=== PATIENT | male | born 1960 | race American Indian/Alaskan Native ===

== ENCOUNTER 2021-05-23 20:03 | Inpatient (IN) | payer OTHER ==
[2021-05-23] MEDS ORDERED: PIPERACIL/TAZOBACTA 4.5/NS 100 4.5 GM/100 ML VIAL IV ONE (22:44)
--- NOTE | 2021-05-23 23:32 | Event Note ---
Date of service: 05/23/21 Face to Face: For this encounter I have reviewed the PA/SEWAGE PLANT SUPERVISOR documentation, treatment plan, medical decision making, and I had face to face time with this patient. patient presented secondary to right foot and toe pain. He had a blister to the lateral aspect of the right foot several weeks ago. It had popped. He started to have problems. He went to a yellow pages space salesperson several weeks ago and was told that it was not infected. He is supposed to go the by just tomorrow for recheck. His little toe started to become more dark and dusky. His was concerned. She referred to me for evaluation. There is no known trauma. On exam, patient has a dusky right little toe. This is consistent with a gangrene presentation. There is a large ulcer to the lateral aspect of the right foot distally. There is edema and erythema and warmth to the dorsum of the right foot. This is consistent with a cellulitis. Patient will require admission for IV antibiotics and orthopedic consultation. He is aware that he may lose the toe. He is in fact diabetic.
[2021-05-23 23:37] LABS: Basophils # (Auto) 0.2 K/mm3 (0.0-0.1); Basophils % (Auto) 1.1 % (0.0-1.8); Eosinophils % (Auto) 0.2 % (0.0-4.3); Hematocrit 34.3 % (35.5-45.6); Hemoglobin 10.9 gm/dl (11.8-15.2); Lymphocytes % (Auto) 12.9 % (13.4-35.0); Mean Corpuscular HGB Conc 32 % (32-34); Mean Corpuscular Volume 78 fl (84-94); Monocytes # (Auto) 1.2 K/mm3 (0.0-0.8); Monocytes % (Auto) 7.8 % (0.0-7.3); Platelet Count 492 K/mm3 (140-440); Red Cell Distribution Width 14.3 % (13.2-15.2)
--- NOTE | 2021-05-23 23:40 | Emergency Department Report ---
ED Lower Extremity HPI - General Chief Complaint: Extremity Injury, Lower Stated Complaint: DIABETIC FOOT SORE Time Seen by Provider: 05/23/21 22:39 Source: patient Mode of arrival: Ambulatory Limitations: No Limitations - History of Present Illness Initial Comments: This is a 60-year-old male nontoxic, well nourished in appearance, no acute signs of distress presents to the ED with c/o of right lateral foot open wound and cyanotic right fifth toe times several days. Patient stated had a small blister which turned into an open wound and was treated with a pharmacy picking tech but symptoms worsen. Patient was on outpatient antibiotics and was brought by PCP for further evaluation and treatment. Denies any trauma or injuries. Patient denies any numbness, tingling, fever, chills, nausea, vomiting, chest pain, shortness of breath, headache, stiff neck. Patient stated has decreased gait due to pain. Patient denies any allergies. PMH include DM. MD Complaint: foot injury -: days(s) Injury: Foot: Right, Toes: Right Severity: mild Severity scale (0 -10): 8 Improves With: immobilization Worsens With: weight bearing, movement, palpation Associated Symptoms: swelling, able to partially bear weight. denies: snap/pop sensation, numbness, tingling, unable to bear weight - Related Data Home Medications Medication Instructions Recorded Confirmed Last Taken Amlodipine Besylate [Norvasc] 10 mg PO DAILY 10/30/14 11/04/14 10/29/14 Gabapentin 100 mg PO DAILY 10/30/14 11/04/14 10/29/14 Losartan/Hydrochlorothiazide 100 - 125 each PO DAILY 10/30/14 11/04/14 10/29/14 [Hyzaar 100-25 TAB] Metformin HCl [Fortamet ER] 1,000 mg PO QDAY 10/30/14 11/04/14 10/29/14 Simvastatin 20 mg PO QHS 10/30/14 11/04/14 10/29/14 glipiZIDE [Glucotrol] 10 mg PO QDAY 10/30/14 11/04/14 10/29/14 Previous Rx's Medication Instructions Recorded Last Taken Type Amoxicillin/K Clav Tab [Augmentin 1 each PO Q12H #10 day 11/02/14 Unknown Rx 875MG TAB] Allergies Allergy/AdvReac Type Severity Reaction Status Date / Time No Known Allergies Allergy Verified 05/23/21 22:32 ED Review of Systems ROS: Stated complaint: DIABETIC FOOT SORE Other details as noted in HPI Comment: All other systems reviewed and negative Constitutional: denies: chills, fever Eyes: denies: eye pain, eye discharge, vision change ENT: denies: ear pain, throat pain Respiratory: denies: cough, shortness of breath, wheezing Cardiovascular: denies: chest pain, palpitations Endocrine: no symptoms reported Gastrointestinal: denies: abdominal pain, nausea, diarrhea Genitourinary: denies: urgency, dysuria Musculoskeletal: denies: back pain, joint swelling, arthralgia Skin: denies: rash, lesions Neurological: denies: headache, weakness, paresthesias Psychiatric: denies: anxiety, depression Hematological/Lymphatic: denies: easy bleeding, easy bruising ED Past Medical Hx - Past Medical History Hx Hypertension: Yes Hx Diabetes: Yes (21 years ago) Hx COPD: No - Social History Smoking Status: Never Smoker - Medications Home Medications: Home Medications Medication Instructions Recorded Confirmed Last Taken Type Amlodipine Besylate [Norvasc] 10 mg PO DAILY 10/30/14 11/04/14 10/29/14 History Gabapentin 100 mg PO DAILY 10/30/14 11/04/14 10/29/14 History Losartan/Hydrochlorothiazide 100 - 125 each PO DAILY 10/30/14 11/04/14 10/29/14 History [Hyzaar 100-25 TAB] Metformin HCl [Fortamet ER] 1,000 mg PO QDAY 10/30/14 11/04/14 10/29/14 History Simvastatin 20 mg PO QHS 10/30/14 11/04/14 10/29/14 History glipiZIDE [Glucotrol] 10 mg PO QDAY 10/30/14 11/04/14 10/29/14 History Amoxicillin/K Clav Tab [Augmentin 1 each PO Q12H #10 day 11/02/14 11/04/14 Unknown Rx 875MG TAB] ED Physical Exam - General Limitations: No Limitations General appearance: alert, in no apparent distress - Head Head exam: Present: atraumatic, normocephalic - Eye Eye exam: Present: normal appearance - Neck Neck exam: Present: normal inspection. Absent: lymphadenopathy - Respiratory Respiratory exam: Absent: respiratory distress - Cardiovascular Cardiovascular Exam: Present: tachycardia - Extremities Exam Extremities exam: Present: full ROM, tenderness, normal capillary refill, pedal edema. Absent: joint swelling, calf tenderness - Expanded Lower Extremity Exam Right Hip exam: Present: normal inspection, full ROM. Absent: tenderness, swelling Upper Leg exam: Present: normal inspection, full ROM. Absent: tenderness, swelling Knee exam: Present: normal inspection, full ROM. Absent: tenderness, swelling Lower Leg exam: Present: normal inspection, full ROM. Absent: tenderness, swelling Ankle exam: Present: normal inspection, full ROM. Absent: tenderness, swelling, abrasion, laceration, ecchymosis, deformity, crepidus, dislocation, erythema, anterior draw sign Foot/Toe exam: Present: normal inspection, full ROM, tenderness, swelling, ecchymosis, erythema. Absent: abrasion, laceration, deformity, crepidus, dislocation, amputation, foreign body, calcaneal tenderness, tenderness at base of 5th metatarsal, nail avulsion, subungual hematoma Gait: Positive: observed and limited by pain 1 - Exam consistent with necrosis 1 - Cellulitis with some swelling - Back Exam Back exam: Present: normal inspection, full ROM - Neurological Exam Neurological exam: Present: alert, oriented X3 - Psychiatric Psychiatric exam: Present: normal affect, normal mood - Skin Skin exam: Present: warm, dry, intact, normal color. Absent: rash ED Course Vital Signs 05/23/21 22:37 Temperature 99.1 F Pulse Rate 108 H Respiratory 18 Rate Blood Pressure 151/88 [Left] O2 Sat by Pulse 97 Oximetry - Reevaluation(s) Reevaluation #1: 05/23/21 23:39 Patient is speaking in full sentences with no signs of distress noted. - Consultations Consultation #1: 05/23/21 23:39 Patient has been consulted with Dr. Pergrem about patient history, physical exam, and examined patient and agrees to ED plan of care and admission. Consultation #2: 05/24/21 00:17 Patient has been consulted with ZACHERY Hodgson (hospitalist) about patient history, physical exam, and labs/imaging results and accepts patient to services. ED Lower Extremity MDM - Lab Data Result diagrams: 05/23/21 23:17 05/23/21 23:17 - Radiology Data [facility] [address] [place] [address] XRay Report Signed Patient: JE BALDERAS MR#: [id number] : 1960 Acct:[id number] Age/Sex: 60 / M ADM Date: 05/23/21 Loc: ED Attending Dr: Ordering Physician: YOVANNY ALVAREZ NP Date of Service: 05/23/21 Procedure(s): XR foot 3+V RT Accession Number(s): [id number] cc: YOVANNY ALVAREZ NP Fluoro Time In Minutes: RIGHT FOOT 3 VIEWS 2255 INDICATION: foot cellulitis with open wound COMPARISON: 10/30/2014 FINDINGS: Old second metatarsal fracture is again noted. No acute fractures or dislocations are seen. Tarsal and ankle degenerative changes are noted. Wound along the ventral lateral aspect of the distal foot is seen in the area of the fifth metatarsophalangeal joint. No foreign bodies are noted. Gas is seen in the soft tissues in this area. The base of the proximal phalanx of the fifth digit as well as the head of the metatarsal show areas of decreased density and decreased cortical definition of concern for developing osteomyelitis. MR is suggested. Signer Name: Mukul Hernandez MD Signed: 05/23/2021 11:44 PM Workstation Name: [id number] Transcribed By: GJ Dictated By: Mukul Hernandez MD Electronically Authenticated By: Mukul Hernandez MD Signed Date/Time: 05/23/212343 DD/ 41 TD/TT: - Medical Decision Making 60-year-old male that presents with necrosis and most likely osteomyelitis. Patient is stable and was examined by me. Patient admitted with hospitalist. Patient is notified of the lab results and x-ray imaging with no questions noted by the patient. Patient received Zosyn IV in ER. Vital signs are stable on admission. At time of admission, the patient does not seem toxic or ill in ap pearance. No acute signs of distress noted. Patient agrees to admission treatment plan of care. No further questions noted by the patient. Critical care attestation.: If time is entered above; I have spent that time in minutes in the direct care of this critically ill patient, excluding procedure time. ED Disposition Clinical Impression: Wound infection, Toe necrosis, Cellulitis of foot, right Foot osteomyelitis, right Qualifiers: Osteomyelitis type: unspecified type Qualified Code(s): M86.9 - Osteomyelitis, unspecified Wound, open, foot Qualifiers: Encounter type: initial encounter Laterality: right Qualified Code(s): S91.301A - Unspecified open wound, right foot, initial encounter Disposition: ADMITTED INPATIENT Is pt being admited?: Yes Condition: Stable Time of Disposition: 00:17
--- NOTE | 2021-05-23 23:49 | XRay Report ---
RIGHT FOOT 3 VIEWS 2255 INDICATION: foot cellulitis with open wound COMPARISON: 10/30/2014 FINDINGS: Old second metatarsal fracture is again noted. No acute fractures or dislocations are seen. Tarsal and ankle degenerative changes are noted. Wound along the ventral lateral aspect of the distal foot is seen in the area of the fifth metatarsop halangeal joint. No foreign bodies are noted. Gas is seen in the soft tissues in this area. The base of the proximal phalanx of the fifth digit as well as the head of the metatarsal show areas of decrea sed density and decreased cortical definition of concern for developing osteomyelitis. MR is suggested. Signer Name: Mukul Hernandez MD Signed: 05/23/2021 11:44 PM Workstation Name: [id number]
[2021-05-23 23:51] LABS: Alanine Aminotransferase 11 units/L (7-56)
[2021-05-23 23:56] LABS: Bilirubin,Direct < 0.2 mg/dL (0-0.2)
[2021-05-24] MEDS ORDERED: ONDANSETRON 4 MG/2 ML INJ IV PRN (00:25)
[2021-05-24] MEDS ORDERED: ACETAMINOPHEN 325 MG TAB PO PRN (00:25)
[2021-05-24] MEDS ORDERED: DEXTROSE 50% IN WATER (25GM) 50 ML SYRINGE IV PRN (00:25)
[2021-05-24] MEDS ORDERED: MORPHINE 4 MG/1 ML INJ IV PRN (00:27)
[2021-05-24] MEDS ORDERED: NALOXONE 0.4 MG/1 ML INJ IV PRN (00:27)
[2021-05-24] MEDS ORDERED: VANCOMYCIN PHARMACY TO DOSE IV SCH (01:00)
[2021-05-24] MEDS ORDERED: SODIUM CHLORIDE 0.45% 1000 ML 1,000 ML IV SCH (01:00)
[2021-05-24 01:34] LABS: BUN/Creatinine Ratio 22; Blood Urea Nitrogen 40 mg/dL (9-20); Hemolysis Index 0
--- NOTE | 2021-05-24 01:55 | History and Physical Report ---
History of Present Illness Date of examination: 05/24/21 Date of admission: 05/24/21 00:25 Chief complaint: Right foot wound, right foot cellulitis History of present illness: 60-year-old -[place]wegian male with history of uncontrolled diabetes, hypertension, and nonhealing diabetic foot ulcer who presents to [facility] ED with complaints of right foot wound. Patient reports having a small blister on his right fifth toe that has worsened and developed into an open wound over the past few weeks. He was following with outpatient podiatry and was started on oral a ntibiotics for treatment of wound. However, the wound has not improved but rather worsened despite receiving treatment. Patient states he called his sock knitter to advise of worsening wound, which now had increased red tinge drainage, and was told to report to the ED for further patient and treatment. Endorses being fully vaccinated for COVID-19. He received the Sticky vaccine in November of this year. Denies fever, chills, nausea, vomiting diarrhea, headache, shortness of breath, chest pain, palpitation, foul/malodorous drainage from wound, increased urination, polydipsia, polyphagia, noncompliance with meds, recent injury/trauma to right foot, or recent sick contacts Past History Past Medical History: diabetes, hypertension Past Surgical History: Other (Right knee surgery) Social history: , lives with family, full code. denies: smoking, alcohol abuse, prescription drug abuse, IV drug use Family history: CAD, diabetes, hypertension Medications and Allergies Allergies Allergy/AdvReac Type Severity Reaction Status Date / Time No Known Allergies Allergy Verified 05/23/21 22:32 Home Medications Medication Instructions Recorded Confirmed Last Taken Type Amlodipine Besylate [Norvasc] 10 mg PO DAILY 10/30/14 11/04/14 10/29/14 History Gabapentin 100 mg PO DAILY 10/30/14 11/04/14 10/29/14 History Losartan/Hydrochlorothiazide 100 - 125 each PO DAILY 10/30/14 11/04/14 10/29/14 History [Hyzaar 100-25 TAB] Metformin HCl [Fortamet ER] 1,000 mg PO QDAY 10/30/14 11/04/14 10/29/14 History Simvastatin 20 mg PO QHS 10/30/14 11/04/14 10/29/14 History glipiZIDE [Glucotrol] 10 mg PO QDAY 10/30/14 11/04/14 10/29/14 History Amoxicillin/K Clav Tab [Augmentin 1 each PO Q12H #10 day 11/02/14 11/04/14 Unknown Rx 875MG TAB] Active Meds: Active Medications Acetaminophen (Acetaminophen 325 Mg Tab) 650 mg PO Q4H PRN PRN Reason: Pain MILD(1-3)/Fever >100.5/ANG Amlodipine Besylate (Amlodipine 10 Mg Tab) 10 mg PO DAILY [facility] Dextrose (Dextrose 50% In Water (25gm) 50 Ml Syringe) 50 ml IV Q30MIN PRN; Protocol PRN Reason: Hypoglycemia Docusate Sodium (Docusate Sodium 100 Mg Cap) 100 mg PO BID PANFILO Famotidine (Famotidine 20 Mg/2 Ml Inj) 10 mg IV BID PANFILO Gabapentin (Gabapentin 100 Mg Cap) 100 mg PO DAILY [facility] Heparin Sodium (Porcine) (Heparin 5,000 Unit/1 Ml Vial) 5,000 unit SUB-Q Q12HR [facility] Sodium Chloride (Nacl 0.45% 1000 Ml) 1,000 mls @ 75 mls/hr IV DIRECT PANFILO Stop: 05/24/21 12:00 Piperacillin Sod/Tazobactam Sod (Zosyn/Ns 4.5gm/100ml) 4.5 gm in 100 mls @ 200 mls/hr IV Q8H PANFILO; Protocol Insulin Human Lispro (Insulin Lispro 100 Unit/Ml) 0 unit SUB-Q ACHS PANFILO; Protocol Morphine Sulfate (Morphine 4 Mg/1 Ml Inj) 4 mg IV Q4H PRN PRN Reason: Pain , Severe (7-10) Naloxone HCl (Naloxone 0.4 Mg/1 Ml Inj) 0.1 mg IV Q2MIN PRN PRN Reason: Res Rate </= 8 or 02 SAT < 92% Ondansetron HCl (Ondansetron 4 Mg/2 Ml Inj) 4 mg IV Q6H PRN PRN Reason: Nausea And Vomiting Oxycodone/Acetaminophen (Oxycodone /Acetaminophen 5-325mg Tab) 1 tab PO Q6H PRN PRN Reason: Pain, Moderate (4-6) Pravastatin Sodium (Pravastatin 40 Mg Tab) 40 mg PO QHS [facility] Sodium Chloride (Sodium Chloride 0.9% 10 Ml Flush Syringe) 10 ml IV BID PANFILO Sodium Chloride (Sodium Chloride 0.9% 10 Ml Flush Syringe) 10 ml IV PRN PRN PRN Reason: LINE FLUSH Review of Systems All systems: negative (as noted in HPI) Exam - Physical Exam Narrative exam: Physical exam General appearance: Present: No acute distress, alert and oriented 3, adult man - EENT Eyes: Present: PERRL, EOM intact ENT: hearing intact, normal dentition - Neck Neck: Present: supple, normal ROM - Respiratory Respiratory effort: Non-labored Respiratory: Clear throughout - Cardiovascular Heart rate: 88 (bpm) Rhythm: Sinus Heart Sounds: Present: S1 & S2. Absent: rub, click - Extremities Extremities: pulses intact, right ankle edema with slight erythema, right fourth and fifth toe wound with moderate blood tinge drainage, and yellowish wound bed, right fourth and fifth toe with dark discoloration (likely due to poor perfusion) - Peripheral Assessment Peripheral Pulses: within normal limits - Abdominal General gastrointestinal: soft, non-tender, normal bowel sounds - Integumentary Integumentary: Present: warm, dry - Musculoskeletal Musculoskeletal: Able to move all extremities, limited ROM to right foot due to wound -Neurological Neurological: CN II-XII intact - Psychiatric Psychiatric: cooperative - Constitutional Vitals: Temp Pulse Resp BP Pulse Ox 99.1 F 108 H 18 151/88 97 05/23/21 22:37 05/23/21 22:37 05/23/21 22:37 05/23/21 22:37 05/23/21 22:37 Results - Labs CBC & Chem 7: 05/23/21 23:17 05/23/21 23:17 Labs: Laboratory Last Values WBC 15.4 K/mm3 (4.5-11.0) H 05/23/21 23:17 RBC 4.40 M/mm3 (3.65-5.03) 05/23/21 23:17 Hgb 10.9 gm/dl (11.8-15.2) L 05/23/21 23:17 Hct 34.3 % (35.5-45.6) L 05/23/21 23:17 MCV 78 fl (84-94) L 05/23/21 23:17 MCH 25 pg (28-32) L 05/23/21 23:17 MCHC 32 % (32-34) 05/23/21 23:17 RDW 14.3 % (13.2-15.2) 05/23/21 23:17 Plt Count 492 K/mm3 (140-440) H 05/23/21 23:17 Lymph % (Auto) 12.9 % (13.4-35.0) L 05/23/21 23:17 Dare % (Auto) 7.8 % (0.0-7.3) H 05/23/21 23:17 Eos % (Auto) 0.2 % (0.0-4.3) 05/23/21 23:17 Baso % (Auto) 1.1 % (0.0-1.8) 05/23/21 23:17 Lymph # (Auto) 2.0 K/mm3 (1.2-5.4) 05/23/21 23:17 Dare # (Auto) 1.2 K/mm3 (0.0-0.8) H 05/23/21 23:17 Eos # (Auto) 0.0 K/mm3 (0.0-0.4) 05/23/21 23:17 Baso # (Auto) 0.2 K/mm3 (0.0-0.1) H 05/23/21 23:17 Seg Neutrophils % 78.0 % (40.0-70.0) H 05/23/21 23:17 Seg Neutrophils # 12.0 K/mm3 (1.8-7.7) H 05/23/21 23:17 Sodium 134 mmol/L (137-145) L 05/23/21 23:17 Potassium 4.2 mmol/L (3.6-5.0) 05/23/21 23:17 Chloride 93.1 mmol/L (98-107) L 05/23/21 23:17 Carbon Dioxide 29 mmol/L (22-30) 05/23/21 23:17 Anion Gap 16 mmol/L 05/23/21 23:17 BUN 40 mg/dL (9-20) H 05/23/21 23:17 Creatinine 1.8 mg/dL (0.8-1.3) H 05/23/21 23:17 Estimated GFR 47 ml/min 05/23/21 23:17 BUN/Creatinine Ratio 22 % 05/23/21 23:17 Glucose 178 mg/dL (75-100) H 05/23/21 23:17 Hemoglobin A1c 11.8 % (4-6) H 05/23/21 23:17 Lactic Acid 1.80 mmol/L (0.7-2.0) 05/23/21 23:17 Calcium 10.0 mg/dL (8.4-10.2) 05/23/21 23:17 Total Bilirubin 0.40 mg/dL (0.1-1.2) 05/23/21 23:17 Direct Bilirubin < 0.2 mg/dL (0-0.2) 05/23/21 23:17 Indirect Bilirubin 0.2 mg/dL 05/23/21 23:17 AST 11 units/L (5-40) 05/23/21 23:17 ALT 11 units/L (7-56) 05/23/21 23:17 Alkaline Phosphatase 107 units/L (35-129) 05/23/21 23:17 Total Protein 8.6 g/dL (6.3-8.2) H 05/23/21 23:17 Albumin 4.0 g/dL (3.9-5) 05/23/21 23:17 Albumin/Globulin Ratio 0.9 % 05/23/21 23:17 Microbiology: Microbiology 05/23/21 23:17 Peripheral/Venous Blood Culture - Preliminary Culture in Progress 05/23/21 23:13 Peripheral/Venous Blood Culture - Preliminary Culture in Progress - Imaging and Cardiology Imaging and Cardiology: Foot XR: FINDINGS: Old second metatarsal fracture is again noted. No acute fractures or dislocations are seen. Tarsal and ankle degenerative changes are noted. Wound along the ventral lateral aspect of the distal foot is seen in the area of the fifth metatarsophalangeal joint. No foreign bodies are noted. Gas is seen in the soft tissues in this area. The base of the proximal phalanx of the fifth digit as well as the head of the metatarsal show areas of decreased density and decre ased cortical definition of concern for developing osteomyelitis. Assessment and Plan Assessment and plan: Right foot cellulitis -On IV ABX -Cultures pending -Supportive care Right foot gas gangrene -Foot x-ray reveals Gas is seen in the soft tissues of the fifth metacarpal joint -Cultures pending -On IV ABX --ID and Ortho consult pending -Wound care education pending -Wound care consult pending Suspicion for osteomyelitis -Foot x-ray shows suspicion for osteomyelitis -MRI pending -Cultures pending -On IV ABX -ID and Ortho consult pending -May resume outpatient follow-up with podiatry as needed once discharge CECILIA -Cr on admission 1.8 -Hydrate with IVF -Avoid nephrotoxic agents -Renal dose all meds -Monitor renal function DM2 -Uncontrolled -HgbA1c 11.8 -POC BG monitoring -Schedule Lantus and SSI coverage prn -May benefit from diabetic education HTN -Monitor BP -Resume home hypertensive meds, to optimize BP DVT and GI PPX -On heparin and Pepcid Advance Directives: No VTE prophylaxis?: Chemical, Mechanical Plan of care discussed with patient/family: Yes
[2021-05-24] MEDS ORDERED: VANCOMYCIN 1,750 MG in SODIUM CHLORIDE 0.9% 500 ML 500 ML IV ONE (03:00)
[2021-05-24] MEDS ORDERED: PIPERACIL/TAZOBACTA 4.5/NS 100 4.5 GM/100 ML VIAL IV SCH (08:00)
[2021-05-24] MEDS ORDERED: NON-FORMULARY EACH (Amlodipine Besylate [Norvasc] 2.5 MG Tablet) PO SCH (10:00)
--- NOTE | 2021-05-24 10:49 | Progress Note ---
Assessment and Plan Assessment and plan: Right foot cellulitis -On IV ABX -Cultures pending -Supportive care Right foot gas gangrene -Foot x-ray reveals Gas is seen in the soft tissues of the fifth metacarpal joint -Cultures pending -On IV ABX --ID and Ortho consult pending -Wound care education pending -Wound care consult pending Suspicion for osteomyelitis -Foot x-ray shows suspicion for osteomyelitis -MRI pending -Cultures pending -On IV ABX -ID and Ortho consult pending -May resume outpatient follow-up with podiatry as needed once discharge CECILIA -Cr on admission 1.8 -Hydrate with IVF -Avoid nephrotoxic agents -Renal dose all meds -Monitor renal function DM2 -Uncontrolled -HgbA1c 11.8 -POC BG monitoring -Schedule Lantus and SSI coverage prn -May benefit from diabetic education HTN -Monitor BP -Resume home hypertensive meds, to optimize BP DVT and GI PPX -On heparin and Pepcid History Interval history: No new issues overnight. Hospitalist Physical - Constitutional Vitals: Temp Pulse Resp BP Pulse Ox 99.1 F 108 H 18 151/88 97 05/23/21 22:37 05/23/21 22:37 05/23/21 22:37 05/23/21 22:37 05/23/21 22:37 General appearance: Present: no acute distress, well-nourished - EENT Eyes: Present: PERRL, EOM intact ENT: hearing intact, clear oral mucosa, dentition normal - Neck Neck: Present: supple, normal ROM - Respiratory Respiratory effort: normal Respiratory: bilateral: CTA - Cardiovascular Rhythm: regular Heart Sounds: Present: S1 & S2. Absent: gallop, rub - Extremities Extremities: no ischemia, No edema, Full ROM - Abdominal General gastrointestinal: soft, non-tender, non-distended, normal bowel sounds - Integumentary Integumentary: Present: clear, warm, dry - Neurologic Neurologic: CNII-XII intact, moves all extremities Results - Labs CBC & Chem 7: 05/23/21 23:17 05/23/21 23:17 Labs: Laboratory Last Values WBC 15.4 K/mm3 (4.5-11.0) H 05/23/21 23:17 RBC 4.40 M/mm3 (3.65-5.03) 05/23/21 23:17 Hgb 10.9 gm/dl (11.8-15.2) L 05/23/21 23:17 Hct 34.3 % (35.5-45.6) L 05/23/21 23:17 MCV 78 fl (84-94) L 05/23/21 23:17 MCH 25 pg (28-32) L 05/23/21 23:17 MCHC 32 % (32-34) 05/23/21 23:17 RDW 14.3 % (13.2-15.2) 05/23/21 23:17 Plt Count 492 K/mm3 (140-440) H 05/23/21 23:17 Lymph % (Auto) 12.9 % (13.4-35.0) L 05/23/21 23:17 O'Brien % (Auto) 7.8 % (0.0-7.3) H 05/23/21 23:17 Eos % (Auto) 0.2 % (0.0-4.3) 05/23/21 23:17 Baso % (Auto) 1.1 % (0.0-1.8) 05/23/21 23:17 Lymph # (Auto) 2.0 K/mm3 (1.2-5.4) 05/23/21 23:17 O'Brien # (Auto) 1.2 K/mm3 (0.0-0.8) H 05/23/21 23:17 Eos # (Auto) 0.0 K/mm3 (0.0-0.4) 05/23/21 23:17 Baso # (Auto) 0.2 K/mm3 (0.0-0.1) H 05/23/21 23:17 Seg Neutrophils % 78.0 % (40.0-70.0) H 05/23/21 23:17 Seg Neutrophils # 12.0 K/mm3 (1.8-7.7) H 05/23/21 23:17 Sodium 134 mmol/L (137-145) L 05/23/21 23:17 Potassium 4.2 mmol/L (3.6-5.0) 05/23/21 23:17 Chloride 93.1 mmol/L (98-107) L 05/23/21 23:17 Carbon Dioxide 29 mmol/L (22-30) 05/23/21 23:17 Anion Gap 16 mmol/L 05/23/21 23:17 BUN 40 mg/dL (9-20) H 05/23/21 23:17 Creatinine 1.8 mg/dL (0.8-1.3) H 05/23/21 23:17 Estimated GFR 47 ml/min 05/23/21 23:17 BUN/Creatinine Ratio 22 % 05/23/21 23:17 Glucose 178 mg/dL (75-100) H 05/23/21 23:17 POC Glucose 109 mg/dL (70-105) H 05/24/21 06:35 Hemoglobin A1c 11.8 % (4-6) H 05/23/21 23:17 Lactic Acid 1.80 mmol/L (0.7-2.0) 05/23/21 23:17 Calcium 10.0 mg/dL (8.4-10.2) 05/23/21 23:17 Total Bilirubin 0.40 mg/dL (0.1-1.2) 05/23/21 23:17 Direct Bilirubin < 0.2 mg/dL (0-0.2) 05/23/21 23:17 Indirect Bilirubin 0.2 mg/dL 05/23/21 23:17 AST 11 units/L (5-40) 05/23/21 23:17 ALT 11 units/L (7-56) 05/23/21 23:17 Alkaline Phosphatase 107 units/L (35-129) 05/23/21 23:17 Total Protein 8.6 g/dL (6.3-8.2) H 05/23/21 23:17 Albumin 4.0 g/dL (3.9-5) 05/23/21 23:17 Albumin/Globulin Ratio 0.9 % 05/23/21 23:17 Microbiology: Microbiology 05/23/21 23:17 Peripheral/Venous Blood Culture - Preliminary Culture in Progress 05/23/21 23:13 Peripheral/Venous Blood Culture - Preliminary Culture in Progress Active Medications - Current Medications Current Medications: Generic Name Dose Route Start Last Admin Trade Name Freq PRN Reason Stop Dose Admin Acetaminophen 650 mg 05/24/21 00:25 Acetaminophen 325 Mg Tab PO Q4H PRN Pain MILD(1-3)/Fever >100.5/ANG Amlodipine Besylate 10 mg 05/24/21 10:00 Amlodipine 10 Mg Tab PO DAILY PANFILO Dextrose 50 ml 05/24/21 00:25 Dextrose 50% In Water (25gm) 50 Ml Syringe IV Q30MIN PRN Hypoglycemia Protocol Docusate Sodium 100 mg 05/24/21 10:00 Docusate Sodium 100 Mg Cap PO BID REPLACED BY [facility] Famotidine 10 mg 05/24/21 10:00 Famotidine 20 Mg/2 Ml Inj IV BID REPLACED BY [facility] Gabapentin 100 mg 05/24/21 10:00 Gabapentin 100 Mg Cap PO DAILY REPLACED BY [facility] Heparin Sodium (Porcine) 5,000 unit 05/24/21 10:00 Heparin 5,000 Unit/1 Ml Vial SUB-Q Q12HR REPLACED BY [facility] Sodium Chloride 1,000 mls @ 75 mls/hr 05/24/21 01:00 Nacl 0.45% 1000 Ml IV 05/24/21 12:00 DIRECT REPLACED BY [facility] Piperacillin Sod/Tazobactam Sod 4.5 gm in 100 mls @ 200 mls/hr 05/24/21 08:00 Zosyn/Ns 4.5gm/100ml IV Q8H REPLACED BY [facility] Protocol Vancomycin HCl 1,500 mg/ 530 mls @ 333.333 mls/hr 05/25/21 03:00 Sodium Chloride IV Q24H REPLACED BY [facility] Insulin Glargine 15 units 05/24/21 08:00 Insulin Glargine 100 Units/Ml SUB-Q QAMDIAB REPLACED BY [facility] Insulin Human Lispro 0 unit 05/24/21 07:30 Insulin Lispro 100 Unit/Ml SUB-Q ACHS REPLACED BY [facility] Protocol Morphine Sulfate 4 mg 05/24/21 00:27 Morphine 4 Mg/1 Ml Inj IV Q4H PRN Pain , Severe (7-10) Naloxone HCl 0.1 mg 05/24/21 00:27 Naloxone 0.4 Mg/1 Ml Inj IV Q2MIN PRN Res Rate </= 8 or 02 SAT < 92% Ondansetron HCl 4 mg 05/24/21 00:25 Ondansetron 4 Mg/2 Ml Inj IV Q6H PRN Nausea And Vomiting Oxycodone/Acetaminophen 1 tab 05/24/21 00:27 Oxycodone /Acetaminophen 5-325mg Tab PO Q6H PRN Pain, Moderate (4-6) Pravastatin Sodium 40 mg 05/24/21 22:00 Pravastatin 40 Mg Tab PO QHS REPLACED BY [facility] Sodium Chloride 10 ml 05/24/21 10:00 Sodium Chloride 0.9% 10 Ml Flush Syringe IV BID PANFILO Sodium Chloride 10 ml 05/24/21 00:25 Sodium Chloride 0.9% 10 Ml Flush Syringe IV PRN PRN LINE FLUSH
--- NOTE | 2021-05-24 12:33 | Magnetic Resonance Report ---
MRI RIGHT FOOT WITHOUT CONTRAST INDICATION / CLINICAL INFORMATION: Foot swelling. Osteomyelitis. TECHNIQUE: Multiplanar, multisequence MR images were obtained. COMPARISON: Radiographs dated 05/23/2021 FINDINGS: BONES: There is marrow edema in the fifth metatarsal with early resorption of the fifth metatarsal he ad and neck. No acute fracture seen. There is also marrow edema in the proximal phalanx of the fifth toe. There is a chronic healed fracture of second metatarsal. JOINTS: Moderate DJD of the great toe MTP and interphalangeal joint. No significant joint effusion or synovitis. MUSCLES: Nonspecific edema in the flexor muscles of the foot. FLEXOR TENDONS: No significant abnormality. EXTENSOR TENDONS: No significant abnormality. PERONEAL TENDONS: No significant abnormality. LIGAMENTS: No significant abnormality. SOFT TISSUES: There is a large soft tissue wound at the lateral foot adjacent to fifth metatarsal piter suring proximally 4 cm in length. There is adjacent gas in the subcutaneous tissues. ADDITIONAL FINDINGS: None. IMPRESSION: 1. Osteomyelitis of fifth metatarsal and proximal phalanx of fifth toe. Adjacent large soft tissue wo und with gas in the soft tissues. No soft tissue abscess. 2. Chronic healed fracture deformity of second metatarsal. 3. Degenerative changes as above. Report dictated by: Bang Connelly MD Report dictated on: 05/24/2021 9:14 AM I have reviewed the images, agree with this report, and edited this report as needed. Signer Name: Teodora Conteh MD Signed: 05/24/2021 12:29 PM Workstation Name: [email or web address]
[2021-05-24] MEDS: INSULIN LISPRO 100 UNIT/ML SUB-Q SCH ×2 (12:58→21:58)
[2021-05-24] MEDS: INSULIN GLARGINE 100 UNITS/ML SUB-Q SCH (13:00)
--- NOTE | 2021-05-24 14:03 | Consultation ---
History of Present Illness - Reason for Consult Consult date: 05/24/21 osteomyelitis Requesting physician: KINZA LIAO - History of Present Illness The patient is a 60-year-old male with diabetes, hypertension, worsening diabetic foot ulceration and wound over the last 2 weeks came to the emergency room for additional evaluation. He reports she was following up with outpatient podiatry, was on oral antibiotics. With increasing drainage he was advised to come to the ER. Here, noted to have leukocytosis, low-grade fever. Creatinine 1.8. MRI of the right foot was done which revealed osteomyelitis of the fifth metatarsal and proximal phalanx of the fifth toe along with an adjacent large soft tissue wound with soft tissue gas. No abscess. Review of Systems: General: no fevers,chills or rigors HEENT: no new visual disturbance Respiratory: No cough, sputum, hemoptysis or shortness of breath Cardiovascular: No chest pain, syncope Gastrointestinal: No nausea, vomiting or diarrhea Genitourinary: No dysuria or hematuria Musculoskeletal: No new or worsening neck pain or back pain Neurologic: No headaches, seizures Hematologic: No easy bruising or bleeding Endocrine: No night sweats or acute weight loss Skin: negative for rash, jaundice Psychiatric: No suicidal or homicidal ideation Past History Past Medical History: diabetes, hypertension Past Surgical History: Other (Right knee surgery) Social history: , lives with family, full code. denies: smoking, alcohol abuse, prescription drug abuse, IV drug use Family history: CAD, diabetes, hypertension Medications and Allergies Allergies Allergy/AdvReac Type Severity Reaction Status Date / Time No Known Allergies Allergy Verified 05/23/21 22:32 Home Medications Medication Instructions Recorded Confirmed Last Taken Type Amlodipine Besylate [Norvasc] 10 mg PO DAILY 10/30/14 11/04/14 10/29/14 History Gabapentin 100 mg PO DAILY 10/30/14 11/04/14 10/29/14 History Losartan/Hydrochlorothiazide 100 - 125 each PO DAILY 10/30/14 11/04/14 10/29/14 History [Hyzaar 100-25 TAB] Metformin HCl [Fortamet ER] 1,000 mg PO QDAY 10/30/14 11/04/14 10/29/14 History Simvastatin 20 mg PO QHS 10/30/14 11/04/14 10/29/14 History glipiZIDE [Glucotrol] 10 mg PO QDAY 10/30/14 11/04/14 10/29/14 History Amoxicillin/K Clav Tab [Augmentin 1 each PO Q12H #10 day 11/02/14 11/04/14 Unknown Rx 875MG TAB] Active Meds: Active Medications Acetaminophen (Acetaminophen 325 Mg Tab) 650 mg PO Q4H PRN PRN Reason: Pain MILD(1-3)/Fever >100.5/ANG Amlodipine Besylate (Amlodipine 10 Mg Tab) 10 mg PO DAILY [facility] Dextrose (Dextrose 50% In Water (25gm) 50 Ml Syringe) 50 ml IV Q30MIN PRN; Protocol PRN Reason: Hypoglycemia Docusate Sodium (Docusate Sodium 100 Mg Cap) 100 mg PO BID [facility] Famotidine (Famotidine 20 Mg/2 Ml Inj) 10 mg IV BID [facility] Gabapentin (Gabapentin 100 Mg Cap) 100 mg PO DAILY [facility] Heparin Sodium (Porcine) (Heparin 5,000 Unit/1 Ml Vial) 5,000 unit SUB-Q Q12HR [facility] Vancomycin HCl 1,500 mg/ (Sodium Chloride) 530 mls @ 333.333 mls/hr IV Q24H [facility] Ceftriaxone Sodium (Rocephin/Ns 2 Gm/100 Ml) 2 gm in 100 mls @ 200 mls/hr IV Q24HR [facility]; Protocol Metronidazole (Flagyl 500 Mg/100 Ml) 500 mg in 100 mls @ 100 mls/hr IV Q8H [facility]; Protocol Insulin Glargine (Insulin Glargine 100 Units/Ml) 15 units SUB-Q QAMDIAB [facility] Last Admin: 05/24/21 13:00 Dose: Not Given Documented by: Insulin Human Lispro (Insulin Lispro 100 Unit/Ml) 0 unit SUB-Q ACHS [facility]; Protocol Last Admin: 05/24/21 12:58 Dose: Not Given Documented by: Morphine Sulfate (Morphine 4 Mg/1 Ml Inj) 4 mg IV Q4H PRN PRN Reason: Pain , Severe (7-10) Naloxone HCl (Naloxone 0.4 Mg/1 Ml Inj) 0.1 mg IV Q2MIN PRN PRN Reason: Res Rate </= 8 or 02 SAT < 92% Ondansetron HCl (Ondansetron 4 Mg/2 Ml Inj) 4 mg IV Q6H PRN PRN Reason: Nausea And Vomiting Oxycodone/Acetaminophen (Oxycodone /Acetaminophen 5-325mg Tab) 1 tab PO Q6H PRN PRN Reason: Pain, Moderate (4-6) Pravastatin Sodium (Pravastatin 40 Mg Tab) 40 mg PO QHS PANFILO Sodium Chloride (Sodium Chloride 0.9% 10 Ml Flush Syringe) 10 ml IV BID PANFILO Sodium Chloride (Sodium Chloride 0.9% 10 Ml Flush Syringe) 10 ml IV PRN PRN PRN Reason: LINE FLUSH Physical Examination - Physical Exam Narrative exam: Physical Exam: Constitutional: Alert, cooperative. No acute distress Head, Ears, Nose: Normocephalic, atraumatic. External ears, nose normal Eyes: Conjunctivae/corneas clear. No icterus. No ptosis. Neck: Supple, no meningeal signs Cardiovascular: S1, S2 + Respiratory: Good air entry, clear to auscultation bilaterally GI: Soft, non-tender; bowel sounds normal. No peritoneal signs Musculoskeletal: Right foot in dressing. Skin: No rash or abscess Hem/Lymphatic: No palpable cervical or supraclavicular nodes. No lymphangitis Psych: Mood ok. Affect normal Neurological: Awake, alert, oriented. No gross abnormality - Constitutional Vitals: Vital Signs Temp Pulse Resp BP Pulse Ox 99.1 F 93 H 18 144/89 97 05/23/21 22:37 05/24/21 13:46 05/24/21 13:46 05/24/21 13:46 05/24/21 13:46 Temperature -Last 24 Hours Temperature 99.1 F Results - Labs CBC & Chem 7: 05/23/21 23:17 05/23/21 23:17 Labs: Abnormal lab results 05/23/21 05/23/21 05/23/21 Range/Units 23:17 23:17 23:17 WBC 15.4 H (4.5-11.0) K/mm3 Hgb 10.9 L (11.8-15.2) gm/dl Hct 34.3 L (35.5-45.6) % MCV 78 L (84-94) fl MCH 25 L (28-32) pg Plt Count 492 H (140-440) K/mm3 Lymph % (Auto) 12.9 L (13.4-35.0) % Sutton % (Auto) 7.8 H (0.0-7.3) % Sutton # (Auto) 1.2 H (0.0-0.8) K/mm3 Baso # (Auto) 0.2 H (0.0-0.1) K/mm3 Seg Neutrophils % 78.0 H (40.0-70.0) % Seg Neutrophils # 12.0 H (1.8-7.7) K/mm3 Sodium 134 L (137-145) mmol/L Chloride 93.1 L (98-107) mmol/L BUN 40 H (9-20) mg/dL Creatinine 1.8 H (0.8-1.3) mg/dL Glucose 178 H (75-100) mg/dL POC Glucose (70-105) mg/dL Hemoglobin A1c 11.8 H (4-6) % Total Protein 8.6 H (6.3-8.2) g/dL 05/24/21 Range/Units 06:35 WBC (4.5-11.0) K/mm3 Hgb (11.8-15.2) gm/dl Hct (35.5-45.6) % MCV (84-94) fl MCH (28-32) pg Plt Count (140-440) K/mm3 Lymph % (Auto) (13.4-35.0) % Sutton % (Auto) (0.0-7.3) % Sutton # (Auto) (0.0-0.8) K/mm3 Baso # (Auto) (0.0-0.1) K/mm3 Seg Neutrophils % (40.0-70.0) % Seg Neutrophils # (1.8-7.7) K/mm3 Sodium (137-145) mmol/L Chloride (98-107) mmol/L BUN (9-20) mg/dL Creatinine (0.8-1.3) mg/dL Glucose (75-100) mg/dL POC Glucose 109 H (70-105) mg/dL Hemoglobin A1c (4-6) % Total Protein (6.3-8.2) g/dL Assessment and Plan Cultures: 05/23/2021 blood culture: In process A/P: 60-year-old male with diabetes, hypertension admitted with: #Sepsis, secondary to right diabetic foot infection with associated fifth toe osteomyelitis: Follows with outpatient podiatry, failed outpatient therapy. Non-smoker. #Diabetes uncontrolled #CECILIA: Renally dose antibiotics Recs: -Empiric ceftriaxone, Flagyl and vancomycin -Arterial studies, wound culture ordered -General surgery consult to evaluate for debridement and possible toe amputation Mike Briggs MD, FACP [facility] O: [phone] F: [phone]
[2021-05-24] MEDS: GABAPENTIN 100 MG CAP PO SCH (14:16)
[2021-05-24] MEDS: DOCUSATE SODIUM 100 MG CAP PO SCH ×2 (14:16→21:59)
[2021-05-24] MEDS: amLODIPine 10 MG TAB PO SCH (14:16)
[2021-05-24] MEDS: HEPARIN 5,000 UNIT/1 ML VIAL SUB-Q SCH ×2 (14:16→21:58)
[2021-05-24] MEDS: FAMOTIDINE 20 MG/2 ML INJ IV SCH ×2 (14:17→21:59)
[2021-05-24] MEDS: cefTRIAXone/NS 2 GM/100 ML 2 GM/100 ML BAG IV SCH (15:22)
[2021-05-24] MEDS: metroNIDAZOLE/NS 500 MG/100 ML 500 MG/100 ML BAG IV SCH ×2 (17:04→21:58)
--- NOTE | 2021-05-24 17:34 | Vascular Lab Report ---
DUPLEX DOPPLER LOWER EXTREMITY ARTERIAL, BILATERAL INDICATION / CLINICAL INFORMATION: peripheral vascular disease, wounds. TECHNIQUE: Arterial duplex examination of both lower extremities performed using B-mode, color flow a nd spectral Doppler assessment. COMPARISON: None available. FINDINGS: RIGHT: Common Femoral Artery: PSV 88 cm/sec. Triphasic waveform. Proximal SFA: PSV 68 cm/sec. Triphasic waveform. Mid SFA: PSV 488 cm/sec. Monophasic waveform. Distal SFA: PSV 65 cm/sec. Monophasic waveform. Popliteal artery: PSV 491 cm/sec. Monophasic waveform. Posterior tibial artery: PSV 109 cm/sec. Monophasic waveform. Dorsalis Pedis Artery: PSV 48 cm/sec. Monophasic waveform. LEFT: Common Femoral Artery: PSV 90 cm/sec. Triphasic waveform. Proximal SFA: PSV 57 cm/sec. Triphasic waveform. Mid SFA: PSV 154 cm/sec. Triphasic waveform. Distal SFA: PSV 82 cm/sec. Biphasic waveform. Popliteal artery: PSV 34 cm/sec. Triphasic waveform. Posterior tibial artery: PSV 186 cm/sec. Triphasic waveform. Dorsalis Pedis Artery: PSV 12 cm/sec. Monophasic waveform. Right CHIP: Not calculated. Left CHIP: Not calculated. IMPRESSION: 1. Multifocal atherosclerotic disease is present within both lower extremities. Abnormal waveforms ar e noted bilaterally, right greater than left. 2. There is significant stenosis of the right mid superficial femoral artery and right popliteal grabiel ry. There is also stenosis noted within the left posterior tibial artery. 3. There is suggestion occlusion of the right distal anterior tibial artery and peroneal artery. Conventional or CT angiography should be considered to better characterize these findings. Ankle-Brachial Index (CHIP): - Calcified arteries > 1.4 - Normal = 0.9-1.4 - Mild PAD = 0.7-0.89 - Moderate PAD = 0.51-0.69 - Severe PAD < 0.5 Doppler Waveform: - Triphasic is normal. - Biphasic is abnormal if clear transition from triphasic signal along vascular tree. - Monophasic is abnormal. Scribed by: Micheline Jenkins RDMS, RVT Scribed: 05/24/2021 4:24 PM I have reviewed the images, agree with this report, and edited this report as needed. Signer Name: Yony Villareal MD Signed: 05/24/2021 5:30 PM Workstation Name: [id number]
[2021-05-24] MEDS: PRAVASTATIN 40 MG TAB PO SCH (21:59)
[2021-05-24] MEDS ORDERED: NON-FORMULARY EACH (Simvastatin [Simvastatin] 20 MG Tablet) PO SCH (22:00)
[2021-05-25] MEDS: VANCOMYCIN 1,500 MG in SODIUM CHLORIDE 0.9% 500 ML 500 ML IV SCH (02:51)
[2021-05-25] MEDS: metroNIDAZOLE/NS 500 MG/100 ML 500 MG/100 ML BAG IV SCH ×3 (05:00→22:10)
[2021-05-25] MEDS: INSULIN LISPRO 100 UNIT/ML SUB-Q SCH ×5 (07:27→23:28)
[2021-05-25 07:50] LABS: Calcium 9.4 mg/dL (8.4-10.2)
--- NOTE | 2021-05-25 09:51 | Progress Note ---
Assessment and Plan Assessment and plan: Right foot cellulitis -On IV ABX -Cultures pending -Supportive care Right foot gas gangrene -Foot x-ray reveals Gas is seen in the soft tissues of the fifth metacarpal joint -Cultures pending -On IV ABX --ID and Ortho consult pending -Wound care education pending -Wound care consult pending Osteomyelitis of the fifth metatarsal and proximal phalanx of fifth toe MRI confirms osteomyelitis of the fifth metatarsal and proximal phalanx of the fifth toe. -ID and Ortho consult pending CECILIA -Cr on admission 1.8 -Hydrate with IVF -Avoid nephrotoxic agents -Renal dose all meds -Monitor renal function DM2 -Uncontrolled -HgbA1c 11.8 -POC BG monitoring -Schedule Lantus and SSI coverage prn -May benefit from diabetic education HTN -Monitor BP -Resume home hypertensive meds, to optimize BP DVT and GI PPX -On heparin and Pepcid 05/25/2021. MRI confirms osteomyelitis of the fifth metatarsal and proximal phalanx of the fifth toe. Patient also noted to have tissue wound at the lateral foot adjacent to the fifth metatarsal with gas in the subcutaneous tissues. Continue IV antibiotics of ceftriaxone, Flagyl and vancomycin per ID recommendations. Surgery consultation for further evaluation. History Interval history: No new issues overnight. Hospitalist Physical - Constitutional Vitals: Temp Pulse Resp BP Pulse Ox 98.2 F 99 H 18 124/84 99 05/25/21 08:28 05/25/21 08:28 05/25/21 08:28 05/25/21 08:28 05/25/21 08:28 General appearance: Present: no acute distress, well-nourished - EENT Eyes: Present: PERRL, EOM intact ENT: hearing intact, clear oral mucosa, dentition normal - Neck Neck: Present: supple, normal ROM - Respiratory Respiratory effort: normal Respiratory: bilateral: CTA - Cardiovascular Rhythm: regular Heart Sounds: Present: S1 & S2. Absent: gallop, rub - Extremities Extremities: no ischemia, No edema, Full ROM - Abdominal General gastrointestinal: soft, non-tender, non-distended, normal bowel sounds - Integumentary Integumentary: Present: clear, warm, dry - Neurologic Neurologic: CNII-XII intact, moves all extremities Results - Labs CBC & Chem 7: 05/23/21 23:17 05/25/21 07:09 Labs: Laboratory Last Values WBC 15.4 K/mm3 (4.5-11.0) H 05/23/21 23:17 RBC 4.40 M/mm3 (3.65-5.03) 05/23/21 23:17 Hgb 10.9 gm/dl (11.8-15.2) L 05/23/21 23:17 Hct 34.3 % (35.5-45.6) L 05/23/21 23:17 MCV 78 fl (84-94) L 05/23/21 23:17 MCH 25 pg (28-32) L 05/23/21 23:17 MCHC 32 % (32-34) 05/23/21 23:17 RDW 14.3 % (13.2-15.2) 05/23/21 23:17 Plt Count 492 K/mm3 (140-440) H 05/23/21 23:17 Lymph % (Auto) 12.9 % (13.4-35.0) L 05/23/21 23:17 Day % (Auto) 7.8 % (0.0-7.3) H 05/23/21 23:17 Eos % (Auto) 0.2 % (0.0-4.3) 05/23/21 23:17 Baso % (Auto) 1.1 % (0.0-1.8) 05/23/21 23:17 Lymph # (Auto) 2.0 K/mm3 (1.2-5.4) 05/23/21 23:17 Day # (Auto) 1.2 K/mm3 (0.0-0.8) H 05/23/21 23:17 Eos # (Auto) 0.0 K/mm3 (0.0-0.4) 05/23/21 23:17 Baso # (Auto) 0.2 K/mm3 (0.0-0.1) H 05/23/21 23:17 Seg Neutrophils % 78.0 % (40.0-70.0) H 05/23/21 23:17 Seg Neutrophils # 12.0 K/mm3 (1.8-7.7) H 05/23/21 23:17 Sodium 133 mmol/L (137-145) L 05/25/21 07:09 Potassium 4.6 mmol/L (3.6-5.0) 05/25/21 07:09 Chloride 96.1 mmol/L (98-107) L 05/25/21 07:09 Carbon Dioxide 31 mmol/L (22-30) H 05/25/21 07:09 Anion Gap 11 mmol/L 05/25/21 07:09 BUN 31 mg/dL (9-20) H 05/25/21 07:09 Creatinine 1.5 mg/dL (0.8-1.3) H 05/25/21 07:09 Estimated GFR 58 ml/min 05/25/21 07:09 BUN/Creatinine Ratio 21 % 05/25/21 07:09 Glucose 334 mg/dL (75-100) H 05/25/21 07:09 POC Glucose 289 mg/dL (70-105) H 05/25/21 07:43 Hemoglobin A1c 11.8 % (4-6) H 05/23/21 23:17 Lactic Acid 1.80 mmol/L (0.7-2.0) 05/23/21 23:17 Calcium 9.4 mg/dL (8.4-10.2) 05/25/21 07:09 Total Bilirubin 0.40 mg/dL (0.1-1.2) 05/23/21 23:17 Direct Bilirubin < 0.2 mg/dL (0-0.2) 05/23/21 23:17 Indirect Bilirubin 0.2 mg/dL 05/23/21 23:17 AST 11 units/L (5-40) 05/23/21 23:17 ALT 11 units/L (7-56) 05/23/21 23:17 Alkaline Phosphatase 107 units/L (35-129) 05/23/21 23:17 Total Protein 8.6 g/dL (6.3-8.2) H 05/23/21 23:17 Albumin 4.0 g/dL (3.9-5) 05/23/21 23:17 Albumin/Globulin Ratio 0.9 % 05/23/21 23:17 Microbiology: Microbiology 05/23/21 23:17 Peripheral/Venous Blood Culture - Preliminary NO GROWTH AFTER 24 HOURS 05/23/21 23:13 Peripheral/Venous Blood Culture - Preliminary NO GROWTH AFTER 24 HOURS Trivedi/IV: Voiding Method Toilet Active Medications - Current Medications Current Medications: Generic Name Dose Route Start Last Admin Trade Name Freq PRN Reason Stop Dose Admin Acetaminophen 650 mg 05/24/21 00:25 Acetaminophen 325 Mg Tab PO Q4H PRN Pain MILD(1-3)/Fever >100.5/ANG Amlodipine Besylate 10 mg 05/24/21 10:00 05/24/21 14:16 Amlodipine 10 Mg Tab PO 10 mg DAILY [facility] Administration Dextrose 50 ml 05/24/21 00:25 Dextrose 50% In Water (25gm) 50 Ml Syringe IV Q30MIN PRN Hypoglycemia Protocol Docusate Sodium 100 mg 05/24/21 10:00 05/24/21 21:59 Docusate Sodium 100 Mg Cap PO 100 mg BID [facility] Administration Famotidine 10 mg 05/24/21 10:00 05/24/21 21:59 Famotidine 20 Mg/2 Ml Inj IV 10 mg BID [facility] Administration Gabapentin 100 mg 05/24/21 10:00 05/24/21 14:16 Gabapentin 100 Mg Cap PO 100 mg DAILY [facility] Administration Heparin Sodium (Porcine) 5,000 unit 05/24/21 10:00 05/24/21 21:58 Heparin 5,000 Unit/1 Ml Vial SUB-Q 5,000 unit Q12HR [facility] Administration Vancomycin HCl 1,500 mg/ 530 mls @ 333.333 mls/hr 05/25/21 03:00 05/25/21 02:51 Sodium Chloride IV 333.333 mls/hr Q24H [facility] Administration Ceftriaxone Sodium 2 gm in 100 mls @ 200 mls/hr 05/24/21 14:00 05/24/21 18:06 Rocephin/Ns 2 Gm/100 Ml IV Infused Q24HR [facility] Infusion Protocol Metronidazole 500 mg in 100 mls @ 100 mls/hr 05/24/21 14:00 05/25/21 05:00 Flagyl 500 Mg/100 Ml IV 100 mls/hr Q8H [facility] Administration Protocol Insulin Glargine 15 units 05/24/21 08:00 05/24/21 13:00 Insulin Glargine 100 Units/Ml SUB-Q Not Given QAMDIAB [facility] Insulin Human Lispro 0 unit 05/24/21 07:30 05/25/21 07:27 Insulin Lispro 100 Unit/Ml SUB-Q Not Given ACHS [facility] Protocol Morphine Sulfate 4 mg 05/24/21 00:27 Morphine 4 Mg/1 Ml Inj IV Q4H PRN Pain , Severe (7-10) Naloxone HCl 0.1 mg 05/24/21 00:27 Naloxone 0.4 Mg/1 Ml Inj IV Q2MIN PRN Res Rate </= 8 or 02 SAT < 92% Ondansetron HCl 4 mg 05/24/21 00:25 Ondansetron 4 Mg/2 Ml Inj IV Q6H PRN Nausea And Vomiting Oxycodone/Acetaminophen 1 tab 05/24/21 00:27 Oxycodone /Acetaminophen 5-325mg Tab PO Q6H PRN Pain, Moderate (4-6) Pravastatin Sodium 40 mg 05/24/21 22:00 05/24/21 21:59 Pravastatin 40 Mg Tab PO 40 mg QHS [facility] Administration Sodium Chloride 10 ml 05/24/21 10:00 05/24/21 22:00 Sodium Chloride 0.9% 10 Ml Flush Syringe IV 10 ml BID [facility] Administration Sodium Chloride 10 ml 05/24/21 00:25 Sodium Chloride 0.9% 10 Ml Flush Syringe IV PRN PRN LINE FLUSH
[2021-05-25] MEDS: DOCUSATE SODIUM 100 MG CAP PO SCH ×2 (10:41→22:11)
[2021-05-25] MEDS: cefTRIAXone/NS 2 GM/100 ML 2 GM/100 ML BAG IV SCH (10:41)
[2021-05-25] MEDS: GABAPENTIN 100 MG CAP PO SCH (10:41)
[2021-05-25] MEDS: amLODIPine 10 MG TAB PO SCH (10:41)
[2021-05-25] MEDS: FAMOTIDINE 20 MG/2 ML INJ IV SCH ×2 (10:41→22:10)
[2021-05-25] MEDS: HEPARIN 5,000 UNIT/1 ML VIAL SUB-Q SCH ×2 (10:44→22:10)
--- NOTE | 2021-05-25 10:44 | Progress Note ---
Assessment and Plan Cultures: 05/23/2021 blood culture: no growth A/P: 60-year-old male with diabetes, hypertension admitted with: #Sepsis, secondary to right diabetic foot infection with associated fifth toe osteomyelitis, gangrenous change: Follows with outpatient podiatry, failed outpatient therapy. Non-smoker. #Diabetes uncontrolled #CECILIA: Renally dose antibiotics #Peripheral vascular disease: noted on arterial US. Recs: -continue ceftriaxone, Flagyl and vancomycin -vascular surgery consult -wound culture ordered yesterday, not collected yet -awaiting general surgery consult to evaluate for debridement and possible toe amputation D/W Dr. David Briggs MD, FACP [facility] ([facility]) O: [phone] F: [phone] Subjective Date of service: 05/25/21 Interval history: No fever. No complaints. Awaiting eval by surgery. Tolerating abx. Objective - Exam Narrative Exam: Physical Exam: Constitutional: Alert, cooperative. No acute distress Head, Ears, Nose: Normocephalic, atraumatic. External ears, nose normal Eyes: Conjunctivae/corneas clear. No icterus. No ptosis. Neck: Supple, no meningeal signs Cardiovascular: S1, S2 + Respiratory: Good air entry, clear to auscultation bilaterally GI: Soft, non-tender; bowel sounds normal. No peritoneal signs Musculoskeletal: Right foot in dressing. Skin: No rash or abscess Hem/Lymphatic: No palpable cervical or supraclavicular nodes. No lymphangitis Psych: Mood ok. Affect normal Neurological: Awake, alert, oriented. No gross abnormality - Constitutional Vitals: Vital Signs Temp Pulse Resp BP Pulse Ox 98.2 F 99 H 18 124/84 99 05/25/21 08:28 05/25/21 08:28 05/25/21 08:28 05/25/21 08:28 05/25/21 08:28 Temperature -Last 24 Hours Temperature 98.2 F Temperature 98.3 F Temperature 98.2 F Temperature 98.0 F Temperature 98.8 F - Labs CBC & Chem 7: 05/23/21 23:17 05/25/21 07:09 Labs: Abnormal lab results 05/24/21 05/24/21 05/25/21 Range/Units 18:12 21:18 07:09 Sodium 133 L (137-145) mmol/L Chloride 96.1 L (98-107) mmol/L Carbon Dioxide 31 H (22-30) mmol/L BUN 31 H (9-20) mg/dL Creatinine 1.5 H (0.8-1.3) mg/dL Glucose 334 H (75-100) mg/dL POC Glucose 215 H 220 H (70-105) mg/dL 05/25/21 Range/Units 07:43 Sodium (137-145) mmol/L Chloride (98-107) mmol/L Carbon Dioxide (22-30) mmol/L BUN (9-20) mg/dL Creatinine (0.8-1.3) mg/dL Glucose (75-100) mg/dL POC Glucose 289 H (70-105) mg/dL
[2021-05-25] MEDS: INSULIN GLARGINE 100 UNITS/ML SUB-Q SCH (11:19)
--- NOTE | 2021-05-25 15:27 | Consultation ---
History of Present Illness Consult date: 05/25/21 Chief complaint: right foot wound - History of present illness History of present illness: 60 yo male with hx of DM and right foot wound who presents to ER with worsening of the wound. States wound has been present for several weeks. He has been seeing his senior information security engineer and underwent debridement once. He was started on abx. He was supposed to follow up this week but came to ER instead. He states there has been minimal drainage. He noticed more black skin around the wound and this worried him. He denies trauma to the area prior to developing wound. No f/c, cp, sob, n/v, abd pain, c/d. He in not on insulin as outpatient for his DM. Past History Past Medical History: diabetes, hypertension Past Surgical History: Other (Right knee surgery) Social history: , lives with family, full code. denies: smoking, alcohol abuse, prescription drug abuse, IV drug use Family history: CAD, diabetes, hypertension Medications and Allergies Allergies Allergy/AdvReac Type Severity Reaction Status Date / Time No Known Allergies Allergy Verified 05/23/21 22:32 Home Medications Medication Instructions Recorded Confirmed Last Taken Type Amlodipine Besylate [Norvasc] 10 mg PO DAILY 10/30/14 05/25/21 10/29/14 History Gabapentin 100 mg PO DAILY 10/30/14 05/25/21 10/29/14 History Losartan/Hydrochlorothiazide 100 - 125 each PO DAILY 10/30/14 05/25/21 10/29/14 History [Hyzaar 100-25 TAB] Metformin HCl [Fortamet ER] 1,000 mg PO QDAY 10/30/14 05/25/21 10/29/14 History Simvastatin 20 mg PO QHS 10/30/14 05/25/21 10/29/14 History glipiZIDE [Glucotrol] 10 mg PO QDAY 10/30/14 05/25/21 10/29/14 History Amoxicillin/K Clav Tab [Augmentin 1 each PO Q12H #10 day 11/02/14 05/25/21 Unknown Rx 875MG TAB] Active Meds: Active Medications Acetaminophen (Acetaminophen 325 Mg Tab) 650 mg PO Q4H PRN PRN Reason: Pain MILD(1-3)/Fever >100.5/ANG Amlodipine Besylate (Amlodipine 10 Mg Tab) 10 mg PO DAILY PANFILO Last Admin: 05/25/21 10:41 Dose: 10 mg Documented by: Dextrose (Dextrose 50% In Water (25gm) 50 Ml Syringe) 50 ml IV Q30MIN PRN; Protocol PRN Reason: Hypoglycemia Docusate Sodium (Docusate Sodium 100 Mg Cap) 100 mg PO BID [facility] Last Admin: 05/25/21 10:41 Dose: 100 mg Documented by: Famotidine (Famotidine 20 Mg/2 Ml Inj) 10 mg IV BID [facility] Last Admin: 05/25/21 10:41 Dose: 10 mg Documented by: Gabapentin (Gabapentin 100 Mg Cap) 100 mg PO DAILY [facility] Last Admin: 05/25/21 10:41 Dose: 100 mg Documented by: Heparin Sodium (Porcine) (Heparin 5,000 Unit/1 Ml Vial) 5,000 unit SUB-Q Q12HR [facility] Last Admin: 05/25/21 10:44 Dose: 5,000 unit Documented by: Vancomycin HCl 1,500 mg/ (Sodium Chloride) 530 mls @ 333.333 mls/hr IV Q24H [facility] Last Admin: 05/25/21 02:51 Dose: 333.333 mls/hr Documented by: Ceftriaxone Sodium (Rocephin/Ns 2 Gm/100 Ml) 2 gm in 100 mls @ 200 mls/hr IV Q24HR [facility]; Protocol Last Admin: 05/25/21 10:41 Dose: 200 mls/hr Documented by: Metronidazole (Flagyl 500 Mg/100 Ml) 500 mg in 100 mls @ 100 mls/hr IV Q8H [facility]; Protocol Last Admin: 05/25/21 14:14 Dose: 100 mls/hr Documented by: Insulin Glargine (Insulin Glargine 100 Units/Ml) 15 units SUB-Q QAMDIAB [facility] Last Admin: 05/25/21 11:19 Dose: 15 units Documented by: Insulin Human Lispro (Insulin Lispro 100 Unit/Ml) 0 unit SUB-Q ACHS [facility]; Protocol Last Admin: 05/25/21 13:11 Dose: 8 unit Documented by: Morphine Sulfate (Morphine 4 Mg/1 Ml Inj) 4 mg IV Q4H PRN PRN Reason: Pain , Severe (7-10) Naloxone HCl (Naloxone 0.4 Mg/1 Ml Inj) 0.1 mg IV Q2MIN PRN PRN Reason: Res Rate </= 8 or 02 SAT < 92% Ondansetron HCl (Ondansetron 4 Mg/2 Ml Inj) 4 mg IV Q6H PRN PRN Reason: Nausea And Vomiting Oxycodone/Acetaminophen (Oxycodone /Acetaminophen 5-325mg Tab) 1 tab PO Q6H PRN PRN Reason: Pain, Moderate (4-6) Pravastatin Sodium (Pravastatin 40 Mg Tab) 40 mg PO QHS [facility] Last Admin: 05/24/21 21:59 Dose: 40 mg Documented by: Sodium Chloride (Sodium Chloride 0.9% 10 Ml Flush Syringe) 10 ml IV BID [facility] Last Admin: 05/25/21 10:42 Dose: 10 ml Documented by: Sodium Chloride (Sodium Chloride 0.9% 10 Ml Flush Syringe) 10 ml IV PRN PRN PRN Reason: LINE FLUSH Review of Systems All systems: negative (10 point ROS performed and negative except for that listed in HPI) Exam Vital Signs Temp Pulse Resp BP Pulse Ox 99.1 F 108 H 18 151/88 97 05/23/21 22:37 05/23/21 22:37 05/23/21 22:37 05/23/21 22:37 05/23/21 22:37 Narrative exam: Gen.: Awake, alert, oriented x3. No apparent distress ENT: Trachea midline. No lymphadenopathy. No scleral icterus or conjunctival pallor CV: S1, S2 present Respiratory: No audible wheezes Extremities: Bilateral lower extremities are warm. Cannot palpate pulses right foot. There is no edema. There is a necrotic wound of the fifth toe which extends to the lateral and posterior portion of the distal foot. There is a small opening with minimal purulent drainage. There is wet gangrene of the fift h toe. Patient cannot delineate between sharp and dull sensation. 4 x 4 gauze was applied to the wound and this was secured with kerlix. Results - Labs 05/23/21 23:17 05/25/21 07:09 Abnormal lab results 05/24/21 05/24/21 05/25/21 Range/Units 18:12 21:18 07:09 Sodium 133 L (137-145) mmol/L Chloride 96.1 L (98-107) mmol/L Carbon Dioxide 31 H (22-30) mmol/L BUN 31 H (9-20) mg/dL Creatinine 1.5 H (0.8-1.3) mg/dL Glucose 334 H (75-100) mg/dL POC Glucose 215 H 220 H (70-105) mg/dL 05/25/21 05/25/21 Range/Units 07:43 11:18 Sodium (137-145) mmol/L Chloride (98-107) mmol/L Carbon Dioxide (22-30) mmol/L BUN (9-20) mg/dL Creatinine (0.8-1.3) mg/dL Glucose (75-100) mg/dL POC Glucose 289 H 352 H (70-105) mg/dL Diabetes panel 05/25/21 Range/Units 07:09 Sodium 133 L (137-145) mmol/L Potassium 4.6 (3.6-5.0) mmol/L Chloride 96.1 L (98-107) mmol/L Carbon Dioxide 31 H (22-30) mmol/L BUN 31 H (9-20) mg/dL Creatinine 1.5 H (0.8-1.3) mg/dL Glucose 334 H (75-100) mg/dL Calcium 9.4 (8.4-10.2) mg/dL Calcium panel 05/25/21 Range/Units 07:09 Calcium 9.4 (8.4-10.2) mg/dL Pituitary panel 05/25/21 Range/Units 07:09 Sodium 133 L (137-145) mmol/L Potassium 4.6 (3.6-5.0) mmol/L Chloride 96.1 L (98-107) mmol/L Carbon Dioxide 31 H (22-30) mmol/L BUN 31 H (9-20) mg/dL Creatinine 1.5 H (0.8-1.3) mg/dL Glucose 334 H (75-100) mg/dL Calcium 9.4 (8.4-10.2) mg/dL Adrenal panel 05/25/21 Range/Units 07:09 Sodium 133 L (137-145) mmol/L Potassium 4.6 (3.6-5.0) mmol/L Chloride 96.1 L (98-107) mmol/L Carbon Dioxide 31 H (22-30) mmol/L BUN 31 H (9-20) mg/dL Creatinine 1.5 H (0.8-1.3) mg/dL Glucose 334 H (75-100) mg/dL Calcium 9.4 (8.4-10.2) mg/dL - Imaging Additional studies: X-ray right foot MRI right foot Arterial ultrasound lower extremity Assessment and Plan 60-year-old male with 1. Diabetes mellitus with open right foot wound 2. Osteomyelitis 3. Poorly controlled diabetes -Hb A1c 11 4. Peripheral arterial disease All pertinent imaging and laboratory data were reviewed. Patient is afebrile, with stable vital signs. Plan: 1. Consistent carb diet 2. strict glucose control 3. local wound care 4. vascular surgery consultation - d/w Dr. Siddiqi 5. Optimize nutrition -add protein supplement 6. Patient will need amputation of the right fifth toe along with debridement of any additional necrotic tissue of the foot. Will discuss with Dr. Mejia tomorrow. 7. abx per ID Discussed recommendations with the patient. He is agreeable to the plan. Thank you for this consultation. Please call with any questions or concerns. Evaluation and treatment of this patient was during the time of the national and state emergency arising from COVID19 coronavirus pandemic. Treatment and procedures performed meet the current and available best practice and guidelines for patient during the COVID pandemic.
[2021-05-25] MEDS: PRAVASTATIN 40 MG TAB PO SCH (22:11)
[2021-05-26] MEDS: VANCOMYCIN 1,500 MG in SODIUM CHLORIDE 0.9% 500 ML 500 ML IV SCH (02:42)
[2021-05-26] MEDS: metroNIDAZOLE/NS 500 MG/100 ML 500 MG/100 ML BAG IV SCH ×3 (05:06→21:38)
[2021-05-26 06:04] LABS: Hematocrit 30.9 % (35.5-45.6); Hemoglobin 10.4 gm/dl (11.8-15.2); Mean Corpuscular HGB Conc 34 % (32-34); Mean Corpuscular Volume 78 fl (84-94); Platelet Count 458 K/mm3 (140-440); Red Blood Count 3.96 M/mm3 (3.65-5.03); Red Cell Distribution Width 14.2 % (13.2-15.2)
[2021-05-26] MEDS: INSULIN LISPRO 100 UNIT/ML SUB-Q SCH ×4 (08:52→21:39)
[2021-05-26] MEDS ORDERED: HEPARIN 10,000 UNITS/10 ML VIAL ONE (09:00)
[2021-05-26] MEDS ORDERED: MIDAZOLAM 2 MG/2 ML INJ ONE (09:00)
[2021-05-26] MEDS ORDERED: fentaNYL 100 MCG/2 ML INJ ONE (09:00)
[2021-05-26] MEDS ORDERED: HEPARIN/NS 5000 UNIT/500ML 1,000 ML IR ONE (09:00)
[2021-05-26] MEDS ORDERED: VERAPAMIL 5 MG/2 ML INJ ONE (09:00)
[2021-05-26] MEDS ORDERED: SODIUM CHLORIDE 0.9% 500 ML 500 ML ONE (09:02)
--- NOTE | 2021-05-26 09:19 | Consultation ---
History of Present Illness - Reason for Consult Consult date: 05/26/21 Right leg peripheral vascular disease with gangrene - History of Present Illness Patient with a history of right fifth toe gangrene extending onto his foot who had been undergoing debridement in the outpatient setting. Patient presented to the ER. Underwent arterial duplex which demonstrated significant SFA disease. Patient with planned amputation of his fifth toe. Not currently in any pain. Patient is resting comfortably at time of examination. Past History Past Medical History: diabetes, hypertension Past Surgical History: Other (Right knee surgery) Social history: , lives with family, full code. denies: smoking, alcohol abuse, prescription drug abuse, IV drug use Family history: CAD, diabetes, hypertension Medications and Allergies Allergies Allergy/AdvReac Type Severity Reaction Status Date / Time No Known Allergies Allergy Verified 05/23/21 22:32 Home Medications Medication Instructions Recorded Confirmed Last Taken Type Amlodipine Besylate [Norvasc] 10 mg PO DAILY 10/30/14 05/25/21 10/29/14 History Gabapentin 100 mg PO DAILY 10/30/14 05/25/21 10/29/14 History Losartan/Hydrochlorothiazide 100 - 125 each PO DAILY 10/30/14 05/25/21 10/29/14 History [Hyzaar 100-25 TAB] Metformin HCl [Fortamet ER] 1,000 mg PO QDAY 10/30/14 05/25/21 10/29/14 History Simvastatin 20 mg PO QHS 10/30/14 05/25/21 10/29/14 History glipiZIDE [Glucotrol] 10 mg PO QDAY 10/30/14 05/25/21 10/29/14 History Amoxicillin/K Clav Tab [Augmentin 1 each PO Q12H #10 day 11/02/14 05/25/21 Unknown Rx 875MG TAB] Active Meds: Active Medications Acetaminophen (Acetaminophen 325 Mg Tab) 650 mg PO Q4H PRN PRN Reason: Pain MILD(1-3)/Fever >100.5/ANG Amlodipine Besylate (Amlodipine 10 Mg Tab) 10 mg PO DAILY [facility] Last Admin: 05/25/21 10:41 Dose: 10 mg Documented by: Dextrose (Dextrose 50% In Water (25gm) 50 Ml Syringe) 50 ml IV Q30MIN PRN; Protocol PRN Reason: Hypoglycemia Docusate Sodium (Docusate Sodium 100 Mg Cap) 100 mg PO BID [facility] Last Admin: 05/25/21 22:11 Dose: 100 mg Documented by: Famotidine (Famotidine 20 Mg/2 Ml Inj) 10 mg IV BID [facility] Last Admin: 05/25/21 22:10 Dose: 10 mg Documented by: Gabapentin (Gabapentin 100 Mg Cap) 100 mg PO DAILY [facility] Last Admin: 05/25/21 10:41 Dose: 100 mg Documented by: Heparin Sodium (Porcine) (Heparin 5,000 Unit/1 Ml Vial) 5,000 unit SUB-Q Q12HR [facility] Last Admin: 05/25/21 22:10 Dose: 5,000 unit Documented by: Vancomycin HCl 1,500 mg/ (Sodium Chloride) 530 mls @ 333.333 mls/hr IV Q24H [facility] Last Admin: 05/26/21 02:42 Dose: 333.333 mls/hr Documented by: Ceftriaxone Sodium (Rocephin/Ns 2 Gm/100 Ml) 2 gm in 100 mls @ 200 mls/hr IV Q24HR [facility]; Protocol Last Admin: 05/25/21 10:41 Dose: 200 mls/hr Documented by: Metronidazole (Flagyl 500 Mg/100 Ml) 500 mg in 100 mls @ 100 mls/hr IV Q8H [facility]; Protocol Last Admin: 05/26/21 05:06 Dose: 100 mls/hr Documented by: Insulin Glargine (Insulin Glargine 100 Units/Ml) 15 units SUB-Q QAMDIAB [facility] Last Admin: 05/25/21 11:19 Dose: 15 units Documented by: Insulin Human Lispro (Insulin Lispro 100 Unit/Ml) 0 unit SUB-Q ACHS [facility]; Protocol Last Admin: 05/26/21 08:52 Dose: Not Given Documented by: Morphine Sulfate (Morphine 4 Mg/1 Ml Inj) 4 mg IV Q4H PRN PRN Reason: Pain , Severe (7-10) Naloxone HCl (Naloxone 0.4 Mg/1 Ml Inj) 0.1 mg IV Q2MIN PRN PRN Reason: Res Rate </= 8 or 02 SAT < 92% Ondansetron HCl (Ondansetron 4 Mg/2 Ml Inj) 4 mg IV Q6H PRN PRN Reason: Nausea And Vomiting Oxycodone/Acetaminophen (Oxycodone /Acetaminophen 5-325mg Tab) 1 tab PO Q6H PRN PRN Reason: Pain, Moderate (4-6) Pravastatin Sodium (Pravastatin 40 Mg Tab) 40 mg PO QHS [facility] Last Admin: 05/25/21 22:11 Dose: 40 mg Documented by: Sodium Chloride (Sodium Chloride 0.9% 10 Ml Flush Syringe) 10 ml IV BID [facility] Last Admin: 05/25/21 22:10 Dose: 10 ml Documented by: Sodium Chloride (Sodium Chloride 0.9% 10 Ml Flush Syringe) 10 ml IV PRN PRN PRN Reason: LINE FLUSH Review of Systems All systems: negative Exam - Constitutional Vitals: Temp Pulse Resp BP Pulse Ox 98.6 F 99 H 18 132/86 98 05/26/21 08:14 05/26/21 08:14 05/26/21 08:14 05/26/21 08:14 05/26/21 08:14 General appearance: Present: no acute distress - EENT Eyes: Present: EOM intact ENT: hearing intact - Neck Neck: Present: supple, normal ROM - Respiratory Respiratory effort: normal - Extremities Extremities: abnormal - Abdominal General gastrointestinal: Present: deferred Male genitourinary: Present: deferred - Rectal Rectal Exam: deferred - Psychiatric Psychiatric: appropriate mood/affect, cooperative Results - Labs CBC & Chem 7: 05/26/21 04:49 05/25/21 07:09 Labs: Abnormal lab results 05/25/21 05/25/21 05/25/21 Range/Units 11:18 15:56 20:39 Hgb (11.8-15.2) gm/dl Hct (35.5-45.6) % MCV (84-94) fl MCH (28-32) pg Plt Count (140-440) K/mm3 POC Glucose 352 H 346 H 294 H (70-105) mg/dL 05/26/21 Range/Units 04:49 Hgb 10.4 L (11.8-15.2) gm/dl Hct 30.9 L (35.5-45.6) % MCV 78 L (84-94) fl MCH 26 L (28-32) pg Plt Count 458 H (140-440) K/mm3 POC Glucose (70-105) mg/dL - Imaging and Cardiology Venous US: image reviewed (Arterial duplex) Assessment and Plan Patient will be brought down to the [facility] this morning for planned revascularization of his right leg. Following this, the patient will be scheduled for amputation of his fifth toe with general surgery per their timetable.
[2021-05-26] MEDS: LIDOCAINE (2%) 20 MG/1 ML VIAL 20 ML MDV INFILTRATI ONE ×2 (09:40→09:42)
--- NOTE | 2021-05-26 10:13 | Progress Note ---
Assessment and Plan Assessment and plan: Right foot cellulitis -On IV ABX -Blood cultures negative [id number] Right foot gas gangrene -Foot x-ray reveals Gas is seen in the soft tissues of the fifth metacarpal joint -Cultures pending -On IV ABX -ID, vascular and general surgery following Osteomyelitis of the fifth metatarsal and proximal phalanx of fifth toe MRI confirms osteomyelitis of the fifth metatarsal and proximal phalanx of the fifth toe. CECILIA -Cr on admission 1.8 -Hydrate with IVF -Avoid nephrotoxic agents -Renal dose all meds -Monitor renal function DM2 -Uncontrolled -HgbA1c 11.8 -POC BG monitoring -Schedule Lantus and SSI coverage prn -May benefit from diabetic education HTN -Monitor BP -Resume home hypertensive meds, to optimize BP DVT and GI PPX -On heparin and Pepcid 05/25/2021. MRI confirms osteomyelitis of the fifth metatarsal and proximal phalanx of the fifth toe. Patient also noted to have tissue wound at the lateral foot adjacent to the fifth metatarsal with gas in the subcutaneous tissues. Continue IV antibiotics of ceftriaxone, Flagyl and vancomycin per ID recommendations. Surgery consultation for further evaluation. 05/26/2021. Patient seen in the [facility]. Case discussed with Dr. Siddiqi. Patient with significant SFA disease and is currently undergoing revascularization of his right leg. General surgery likely to perform amputation of his fifth toe. Follow-up creatinine in a.m. after procedure. History Interval history: No new issues overnight. Patient seen in the [facility]. Case discussed with Dr. Siddiqi Hospitalist Physical - Constitutional Vitals: Temp Pulse Resp BP Pulse Ox 98.6 F 99 H 18 132/86 98 05/26/21 08:14 05/26/21 08:14 05/26/21 08:14 05/26/21 08:14 05/26/21 08:14 General appearance: Present: no acute distress - EENT Eyes: Present: PERRL, EOM intact ENT: hearing intact, clear oral mucosa, dentition normal - Neck Neck: Present: supple, normal ROM - Respiratory Respiratory effort: normal Respiratory: bilateral: CTA - Cardiovascular Rhythm: regular Heart Sounds: Present: S1 & S2. Absent: gallop, rub - Extremities Extremities: no ischemia, No edema, Full ROM - Abdominal General gastrointestinal: soft, non-tender, non-distended, normal bowel sounds - Integumentary Integumentary: Present: clear, warm, dry - Neurologic Neurologic: CNII-XII intact, moves all extremities Results - Labs CBC & Chem 7: 05/26/21 04:49 05/25/21 07:09 Labs: Laboratory Last Values WBC 10.2 K/mm3 (4.5-11.0) 05/26/21 04:49 RBC 3.96 M/mm3 (3.65-5.03) 05/26/21 04:49 Hgb 10.4 gm/dl (11.8-15.2) L 05/26/21 04:49 Hct 30.9 % (35.5-45.6) L 05/26/21 04:49 MCV 78 fl (84-94) L 05/26/21 04:49 MCH 26 pg (28-32) L 05/26/21 04:49 MCHC 34 % (32-34) 05/26/21 04:49 RDW 14.2 % (13.2-15.2) 05/26/21 04:49 Plt Count 458 K/mm3 (140-440) H 05/26/21 04:49 Lymph % (Auto) 12.9 % (13.4-35.0) L 05/23/21 23:17 [place] % (Auto) 7.8 % (0.0-7.3) H 05/23/21 23:17 Eos % (Auto) 0.2 % (0.0-4.3) 05/23/21 23:17 Baso % (Auto) 1.1 % (0.0-1.8) 05/23/21 23:17 Lymph # (Auto) 2.0 K/mm3 (1.2-5.4) 05/23/21 23:17 [place] # (Auto) 1.2 K/mm3 (0.0-0.8) H 05/23/21 23:17 Eos # (Auto) 0.0 K/mm3 (0.0-0.4) 05/23/21 23:17 Baso # (Auto) 0.2 K/mm3 (0.0-0.1) H 05/23/21 23:17 Seg Neutrophils % 78.0 % (40.0-70.0) H 05/23/21 23:17 Seg Neutrophils # 12.0 K/mm3 (1.8-7.7) H 05/23/21 23:17 Sodium 133 mmol/L (137-145) L 05/25/21 07:09 Potassium 4.6 mmol/L (3.6-5.0) 05/25/21 07:09 Chloride 96.1 mmol/L (98-107) L 05/25/21 07:09 Carbon Dioxide 31 mmol/L (22-30) H 05/25/21 07:09 Anion Gap 11 mmol/L 05/25/21 07:09 BUN 31 mg/dL (9-20) H 05/25/21 07:09 Creatinine 1.5 mg/dL (0.8-1.3) H 05/25/21 07:09 Estimated GFR 58 ml/min 05/25/21 07:09 BUN/Creatinine Ratio 21 % 05/25/21 07:09 Glucose 334 mg/dL (75-100) H 05/25/21 07:09 POC Glucose 294 mg/dL (70-105) H 05/25/21 20:39 Hemoglobin A1c 11.8 % (4-6) H 05/23/21 23:17 Lactic Acid 1.80 mmol/L (0.7-2.0) 05/23/21 23:17 Calcium 9.4 mg/dL (8.4-10.2) 05/25/21 07:09 Total Bilirubin 0.40 mg/dL (0.1-1.2) 05/23/21 23:17 Direct Bilirubin < 0.2 mg/dL (0-0.2) 05/23/21 23:17 Indirect Bilirubin 0.2 mg/dL 05/23/21 23:17 AST 11 units/L (5-40) 05/23/21 23:17 ALT 11 units/L (7-56) 05/23/21 23:17 Alkaline Phosphatase 107 units/L (35-129) 05/23/21 23:17 Total Protein 8.6 g/dL (6.3-8.2) H 05/23/21 23:17 Albumin 4.0 g/dL (3.9-5) 05/23/21 23:17 Albumin/Globulin Ratio 0.9 % 05/23/21 23:17 Microbiology: Microbiology 05/23/21 23:17 Peripheral/Venous Blood Culture - Preliminary NO GROWTH AFTER 48 HOURS 05/23/21 23:13 Peripheral/Venous Blood Culture - Preliminary NO GROWTH AFTER 48 HOURS Trivedi/IV: Voiding Method Toilet Active Medications - Current Medications Current Medications: Generic Name Dose Route Start Last Admin Trade Name Freq PRN Reason Stop Dose Admin Acetaminophen 650 mg 05/24/21 00:25 Acetaminophen 325 Mg Tab PO Q4H PRN Pain MILD(1-3)/Fever >100.5/ANG Amlodipine Besylate 10 mg 05/24/21 10:00 05/25/21 10:41 Amlodipine 10 Mg Tab PO 10 mg DAILY PANFILO Administration Dextrose 50 ml 05/24/21 00:25 Dextrose 50% In Water (25gm) 50 Ml Syringe IV Q30MIN PRN Hypoglycemia Protocol Docusate Sodium 100 mg 05/24/21 10:00 05/25/21 22:11 Docusate Sodium 100 Mg Cap PO 100 mg BID PANFILO Administration Famotidine 10 mg 05/24/21 10:00 05/25/21 22:10 Famotidine 20 Mg/2 Ml Inj IV 10 mg BID PANFILO Administration Gabapentin 100 mg 05/24/21 10:00 05/25/21 10:41 Gabapentin 100 Mg Cap PO 100 mg DAILY PANFILO Administration Heparin Sodium (Porcine) 5,000 unit 05/24/21 10:00 05/25/21 22:10 Heparin 5,000 Unit/1 Ml Vial SUB-Q 5,000 unit Q12HR PANFILO Administration Vancomycin HCl 1,500 mg/ 530 mls @ 333.333 mls/hr 05/25/21 03:00 05/26/21 02:42 Sodium Chloride IV 333.333 mls/hr Q24H PANFILO Administration Ceftriaxone Sodium 2 gm in 100 mls @ 200 mls/hr 05/24/21 14:00 05/25/21 10:41 Rocephin/Ns 2 Gm/100 Ml IV 200 mls/hr Q24HR PANFILO Administration Protocol Metronidazole 500 mg in 100 mls @ 100 mls/hr 05/24/21 14:00 05/26/21 05:06 Flagyl 500 Mg/100 Ml IV 100 mls/hr Q8H PANFILO Administration Protocol Insulin Glargine 15 units 05/24/21 08:00 05/25/21 11:19 Insulin Glargine 100 Units/Ml SUB-Q 15 units QAMDIAB PANFILO Administration Insulin Human Lispro 0 unit 05/24/21 07:30 05/26/21 08:52 Insulin Lispro 100 Unit/Ml SUB-Q Not Given ACHS [facility] Protocol Morphine Sulfate 4 mg 05/24/21 00:27 Morphine 4 Mg/1 Ml Inj IV Q4H PRN Pain , Severe (7-10) Naloxone HCl 0.1 mg 05/24/21 00:27 Naloxone 0.4 Mg/1 Ml Inj IV Q2MIN PRN Res Rate </= 8 or 02 SAT < 92% Ondansetron HCl 4 mg 05/24/21 00:25 Ondansetron 4 Mg/2 Ml Inj IV Q6H PRN Nausea And Vomiting Oxycodone/Acetaminophen 1 tab 05/24/21 00:27 Oxycodone /Acetaminophen 5-325mg Tab PO Q6H PRN Pain, Moderate (4-6) Pravastatin Sodium 40 mg 05/24/21 22:00 05/25/21 22:11 Pravastatin 40 Mg Tab PO 40 mg QHS PANFILO Administration Sodium Chloride 10 ml 05/24/21 10:00 05/25/21 22:10 Sodium Chloride 0.9% 10 Ml Flush Syringe IV 10 ml BID PANFILO Administration Sodium Chloride 10 ml 05/24/21 00:25 Sodium Chloride 0.9% 10 Ml Flush Syringe IV PRN PRN LINE FLUSH
--- NOTE | 2021-05-26 10:46 | Operative Report ---
Operative Report Operative Report: Exam: Right lower extremity revascularization Clinical indication: Peripheral vascular disease with fifth toe and distal foot gangrene Date: 05/26/2021 Procedure: Following an explanation of the risks, benefits and alternatives; written informed consent was obtained. The patient was brought to the angiogr aphic suite and placed in supine position on the examination table. Initial ultrasound evaluation of the left groin demonstrated a patent left common femoral artery. The patient's left groin was prepped and draped in the usual sterile fashion. 1% lidocaine was used for anesthesia. Under ultrasound guidance, the left common femoral artery was cannulated with a 7 cm 21-gauge needle. A 0.018 guidewire was advanced centrally. The needle was removed and a microsheath placed. A 0.018 guidewire was exchanged for a 0.035 guidewire and the micro sheath exchanged for a 5 [place] vascular sheath. An Omni Flush catheter was then advanced over the 035 wire and together guidewire and catheter advanced to the distal abdominal aorta. The guidewire was removed. Angiography was performed in the distal abdominal aorta which demonstrates a widely patent distal abdominal aorta, bilateral common iliac, bilateral external iliac and bilateral common femoral arteries. The bifurcation was then crossed using the Omni Flush catheter and guidewire. Additional angiography of the right leg was performed with the Omni Flush catheter in the right common femoral artery, right superficial femoral artery p roximal and distal and right popliteal artery. This demonstrates a focal 80% stenosis within the mid SFA with collateral formation. There is a second focal 90% stenosis in the popliteal artery with collateral formation, the patient has an anterior and posterior tibial artery with a focal 70% stenosis at the origin of the anterior tibial artery with scattered atherosclerotic disease extending more distally. At the 0.035 guidewire was advanced through the Omni Flush catheter and the Omni Flush catheter exchanged for a vertebral catheter. Together the vertebral catheter and guidewire were advanced into the mid anterior tibial artery. The 035 guidewire was removed and a 6 mm spider wire advanced through the vertebral catheter to place it at the origin of the anterior tibial artery. The vertebral catheter was removed. Atherectomy of the proximal SFA stenosis was performed using a Hawk M atherectomy device. Post atherectomy angioplasty was performed using a 6 mm x 80 mm drug-coated balloon. Atherectomy of the mid popliteal stenosis was performed using an Hawk M atherectomy device. Post atherectomy angioplasty was performed using a 5 mm x 80 mm drug-coated balloon. Treatment of the proximal anterior tibial artery lesion was performed using a 4 mm x 80 mm drug-coated balloon. The vertebral catheter was advanced over the spider wire and the spider wire removed through the vertebral catheter. Post intervention imaging demonstrated brisk flow with reduction of the SFA stenosis to less than 20% and no obvious dissections noted. Reduction of the popliteal artery stenosis to less than 20% and no obvious stenoses. Reduction of the anterior tibial artery stenosis to less than 20% and no obvious stenosis. The patient had palpable dorsalis pedis pulses at the conclusion of the procedure. The trocar the sheath was advanced through the sheath over the guidewire and the sheath proximal lysed. The guidewire was advanced up the abdominal aorta and the sheath removed. Hemostasis was achieved in the left groin using an Angio- Seal arterial closure device and a compression dressing. The patient tolerated the procedure well. There were no immediate postprocedure complications. Conscious sedation was performed under the guidance of radiologic nursing. Continuous cardiopulmonary monitoring was utilized. Impression: 1) Right lower extremity revascularization with focal lesions in the SFA, popliteal artery and anterior tibial artery. Revascularization of the SFA and popliteal artery using atherectomy and angioplasty. Revascularization of the anterior tibial artery using angioplasty. Palpable pulses at the conclusion of the procedure. 2) The patient now has adequate inflow to heal his amputation and debridement.
[2021-05-26] MEDS: INSULIN GLARGINE 100 UNITS/ML SUB-Q SCH (11:09)
[2021-05-26] MEDS: cefTRIAXone/NS 2 GM/100 ML 2 GM/100 ML BAG IV SCH (11:53)
[2021-05-26] MEDS: HEPARIN 5,000 UNIT/1 ML VIAL SUB-Q SCH ×2 (11:54→21:37)
[2021-05-26] MEDS: DOCUSATE SODIUM 100 MG CAP PO SCH ×2 (11:57→21:37)
[2021-05-26] MEDS: GABAPENTIN 100 MG CAP PO SCH (11:57)
[2021-05-26] MEDS: FAMOTIDINE 20 MG/2 ML INJ IV SCH ×2 (11:57→21:37)
[2021-05-26] MEDS: amLODIPine 10 MG TAB PO SCH (11:57)
--- NOTE | 2021-05-26 13:10 | Progress Note ---
Assessment and Plan Cultures: 05/23/2021 blood culture: no growth A/P: 60-year-old male with diabetes, hypertension admitted with: #Sepsis, secondary to right diabetic foot infection with associated fifth toe osteomyelitis, gangrenous change: Follows with outpatient podiatry, failed outpatient therapy. Non-smoker. #Diabetes uncontrolled #CECILIA: Renally dose antibiotics #Peripheral vascular disease: noted on arterial US. Status post RLE revascularization 05/26/2021 Recs: -continue ceftriaxone, Flagyl and vancomycin -wound culture, not collected yet, please send deep cultures from surgery -Awaiting debridement and amputation of right fifth toe by Dr. Mejia. Mike Briggs MD, [facility] O: [phone] F: [phone] Subjective Date of service: 05/26/21 Interval history: No fever. Was seen by general surgery and vascular surgery. Underwent RLE revascularization today. Objective - Exam Narrative Exam: Physical Exam: Constitutional: Alert, cooperative. No acute distress Head, Ears, Nose: Normocephalic, atraumatic. External ears, nose normal Eyes: Conjunctivae/corneas clear. No icterus. No ptosis. Neck: Supple, no meningeal signs Cardiovascular: S1, S2 + Respiratory: Good air entry, clear to auscultation bilaterally GI: Soft, non-tender; bowel sounds normal. No peritoneal signs Musculoskeletal: Right foot in dressing. Skin: No rash or abscess Hem/Lymphatic: No palpable cervical or supraclavicular nodes. No lymphangitis Psych: Mood ok. Affect normal Neurological: Awake, alert, oriented. No gross abnormality - Constitutional Vitals: Vital Signs Temp Pulse Resp BP Pulse Ox 98.3 F 86 16 151/84 95 05/26/21 11:36 05/26/21 11:57 05/26/21 11:36 05/26/21 11:57 05/26/21 11:36 Temperature -Last 24 Hours Temperature 98.3 F Temperature 98.6 F Temperature 98.8 F Temperature 98.8 F Temperature 98.6 F Temperature 98.2 F - Labs CBC & Chem 7: 05/26/21 04:49 05/25/21 07:09 Labs: Abnormal lab results 05/25/21 05/25/21 05/26/21 Range/Units 15:56 20:39 04:49 Hgb 10.4 L (11.8-15.2) gm/dl Hct 30.9 L (35.5-45.6) % MCV 78 L (84-94) fl MCH 26 L (28-32) pg Plt Count 458 H (140-440) K/mm3 POC Glucose 346 H 294 H (70-105) mg/dL 05/26/21 Range/Units 11:35 Hgb (11.8-15.2) gm/dl Hct (35.5-45.6) % MCV (84-94) fl MCH (28-32) pg Plt Count (140-440) K/mm3 POC Glucose 169 H (70-105) mg/dL
--- NOTE | 2021-05-26 16:57 | Consultation ---
History of Present Illness Consult date: 05/26/21 Chief complaint: Gangrene of right 5th toe - History of present illness History of present illness: 60 yo diabetic male, non-smoker with PVOD of the RLE and gangrene/osteomyelitis of the right 5th toe/metatarsal head. Pt is now s/p revascularization by Dr. Siddiqi. Past History Past Medical History: diabetes, hypertension Past Surgical History: Other (Right knee surgery) Social history: , lives with family, full code. denies: smoking, alcohol abuse, prescription drug abuse, IV drug use Family history: CAD, diabetes, hypertension Medications and Allergies Allergies Allergy/AdvReac Type Severity Reaction Status Date / Time No Known Allergies Allergy Verified 05/23/21 22:32 Home Medications Medication Instructions Recorded Confirmed Last Taken Type Amlodipine Besylate [Norvasc] 10 mg PO DAILY 10/30/14 05/25/21 10/29/14 History Gabapentin 100 mg PO DAILY 10/30/14 05/25/21 10/29/14 History Losartan/Hydrochlorothiazide 100 - 125 each PO DAILY 10/30/14 05/25/21 10/29/14 History [Hyzaar 100-25 TAB] Metformin HCl [Fortamet ER] 1,000 mg PO QDAY 10/30/14 05/25/21 10/29/14 History Simvastatin 20 mg PO QHS 10/30/14 05/25/21 10/29/14 History glipiZIDE [Glucotrol] 10 mg PO QDAY 10/30/14 05/25/21 10/29/14 History Amoxicillin/K Clav Tab [Augmentin 1 each PO Q12H #10 day 11/02/14 05/25/21 Unknown Rx 875MG TAB] Active Meds: Active Medications Acetaminophen (Acetaminophen 325 Mg Tab) 650 mg PO Q4H PRN PRN Reason: Pain MILD(1-3)/Fever >100.5/ANG Amlodipine Besylate (Amlodipine 10 Mg Tab) 10 mg PO DAILY [facility] Last Admin: 05/26/21 11:57 Dose: 10 mg Documented by: Aspirin (Aspirin 81 Mg Tab Chew) 81 mg PO QDAY PANFILO Clopidogrel Bisulfate (Clopidogrel 75 Mg Tab) 75 mg PO QDAY PANFILO Dextrose (Dextrose 50% In Water (25gm) 50 Ml Syringe) 50 ml IV Q30MIN PRN; Protocol PRN Reason: Hypoglycemia Docusate Sodium (Docusate Sodium 100 Mg Cap) 100 mg PO BID [facility] Last Admin: 05/26/21 11:57 Dose: Not Given Documented by: Famotidine (Famotidine 20 Mg/2 Ml Inj) 10 mg IV BID [facility] Last Admin: 05/26/21 11:57 Dose: 10 mg Documented by: Gabapentin (Gabapentin 100 Mg Cap) 100 mg PO DAILY [facility] Last Admin: 05/26/21 11:57 Dose: Not Given Documented by: Heparin Sodium (Porcine) (Heparin 5,000 Unit/1 Ml Vial) 5,000 unit SUB-Q Q12HR [facility] Last Admin: 05/26/21 11:54 Dose: Not Given Documented by: Vancomycin HCl 1,500 mg/ (Sodium Chloride) 530 mls @ 333.333 mls/hr IV Q24H [facility] Last Admin: 05/26/21 02:42 Dose: 333.333 mls/hr Documented by: Ceftriaxone Sodium (Rocephin/Ns 2 Gm/100 Ml) 2 gm in 100 mls @ 200 mls/hr IV Q24HR [facility]; Protocol Last Admin: 05/26/21 11:53 Dose: 200 mls/hr Documented by: Metronidazole (Flagyl 500 Mg/100 Ml) 500 mg in 100 mls @ 100 mls/hr IV Q8H [facility]; Protocol Last Admin: 05/26/21 13:23 Dose: 100 mls/hr Documented by: Insulin Glargine (Insulin Glargine 100 Units/Ml) 15 units SUB-Q QAMDIAB [facility] Last Admin: 05/26/21 11:09 Dose: Not Given Documented by: Insulin Human Lispro (Insulin Lispro 100 Unit/Ml) 0 unit SUB-Q ACHS [facility]; Protocol Last Admin: 05/26/21 16:44 Dose: Not Given Documented by: Morphine Sulfate (Morphine 4 Mg/1 Ml Inj) 4 mg IV Q4H PRN PRN Reason: Pain , Severe (7-10) Naloxone HCl (Naloxone 0.4 Mg/1 Ml Inj) 0.1 mg IV Q2MIN PRN PRN Reason: Res Rate </= 8 or 02 SAT < 92% Ondansetron HCl (Ondansetron 4 Mg/2 Ml Inj) 4 mg IV Q6H PRN PRN Reason: Nausea And Vomiting Oxycodone/Acetaminophen (Oxycodone /Acetaminophen 5-325mg Tab) 1 tab PO Q6H PRN PRN Reason: Pain, Moderate (4-6) Pravastatin Sodium (Pravastatin 40 Mg Tab) 40 mg PO QHS [facility] Last Admin: 05/25/21 22:11 Dose: 40 mg Documented by: Sodium Chloride (Sodium Chloride 0.9% 10 Ml Flush Syringe) 10 ml IV BID [facility] Last Admin: 05/26/21 11:54 Dose: 10 ml Documented by: Sodium Chloride (Sodium Chloride 0.9% 10 Ml Flush Syringe) 10 ml IV PRN PRN PRN Reason: LINE FLUSH Review of Systems All systems: negative (none) Exam Vital Signs Temp Pulse Resp BP Pulse Ox 99.1 F 108 H 18 151/88 97 05/23/21 22:37 05/23/21 22:37 05/23/21 22:37 05/23/21 22:37 05/23/21 22:37 - General physical appearance Positive: well developed, well nourished, no distress - Eyes Positive: PERRL, normal occular movement - ENT Positive: normal pinna, normal nares, normal mucosa, no hearing loss, no congestion - Neck Positive: no masses, no bruits, trachea midline, no venous distension - Respiratory Positive: normal expansion, normal respiratory effort, clear to auscultation - Cardiovascular Rhythm: regular Heart Sounds: Present: S1 & S2. Absent: rub, click - Extremities Extremities: no ischemia, pulses symmetrical, No edema - Breasts Breasts: normal, no mass, no skin changes - Abdomen Abdomen: Present: soft, bowel sounds normal. Absent: tender, distended Hernia: none - Genitourinary Male Genitourinary: normal Female Genitourinary: normal - Integumentary no rash, no growths, no abnormal pigmentation, other (There is dry gangrene of the right 5th toe and adjacent distal lateral foot. ) - Neurologic Neurologic: alert and oriented to time, place and person, motor strength and sensation are grossly intact - Musculoskeletal normal gait, normal posture - Psychiatric Psychiatric: appropriate mood/affect, intact judgment & insight Results - Labs 05/26/21 04:49 05/25/21 07:09 Abnormal lab results 05/25/21 05/26/21 05/26/21 Range/Units 20:39 04:49 11:35 Hgb 10.4 L (11.8-15.2) gm/dl Hct 30.9 L (35.5-45.6) % MCV 78 L (84-94) fl MCH 26 L (28-32) pg Plt Count 458 H (140-440) K/mm3 POC Glucose 294 H 169 H (70-105) mg/dL 05/26/21 Range/Units 15:54 Hgb (11.8-15.2) gm/dl Hct (35.5-45.6) % MCV (84-94) fl MCH (28-32) pg Plt Count (140-440) K/mm3 POC Glucose 160 H (70-105) mg/dL - Imaging Additional studies: MRI of right foot was reviewed. Assessment and Plan - Patient Problems (1) Foot osteomyelitis, right Current Visit: Yes Status: Acute Qualifiers: Osteomyelitis type: unspecified type Qualified Code(s): M86.9 - Osteomyelitis, unspecified Plan to address problem: 1) NPO after MN 2) TMA of right 5th toe tomorrow
[2021-05-26] MEDS: CLOPIDOGREL 75 MG TAB PO SCH (17:01)
[2021-05-26] MEDS: ASPIRIN 81 MG TAB CHEW PO SCH (17:01)
[2021-05-26] MEDS: PRAVASTATIN 40 MG TAB PO SCH (21:37)
[2021-05-27] MEDS: VANCOMYCIN 1,500 MG in SODIUM CHLORIDE 0.9% 500 ML 500 ML IV SCH (02:23)
[2021-05-27] MEDS: metroNIDAZOLE/NS 500 MG/100 ML 500 MG/100 ML BAG IV SCH ×3 (05:10→22:47)
[2021-05-27 05:56] LABS: Basophils # (Auto) 0.1 K/mm3 (0.0-0.1); Basophils % (Auto) 0.8 % (0.0-1.8); Eosinophils # (Auto) 0.1 K/mm3 (0.0-0.4); Eosinophils % (Auto) 1.4 % (0.0-4.3); Hematocrit 28.4 % (35.5-45.6); Hemoglobin 9.9 gm/dl (11.8-15.2); Lymphocytes # (Auto) 1.9 K/mm3 (1.2-5.4); Lymphocytes % (Auto) 18.7 % (13.4-35.0); Mean Corpuscular HGB Conc 35 % (32-34); Mean Corpuscular Volume 77 fl (84-94); Monocytes # (Auto) 0.9 K/mm3 (0.0-0.8); Monocytes % (Auto) 8.4 % (0.0-7.3); Platelet Count 446 K/mm3 (140-440); Red Blood Count 3.67 M/mm3 (3.65-5.03)
[2021-05-27 06:21] LABS: BUN/Creatinine Ratio 19; Blood Urea Nitrogen 25 mg/dL (9-20); Calcium 9.3 mg/dL (8.4-10.2); Hemolysis Index 1
[2021-05-27] MEDS: INSULIN LISPRO 100 UNIT/ML SUB-Q SCH ×4 (08:01→23:30)
[2021-05-27] MEDS: INSULIN GLARGINE 100 UNITS/ML SUB-Q SCH (08:20)
--- NOTE | 2021-05-27 09:45 | Progress Note ---
Assessment and Plan Assessment and plan: Right foot cellulitis/Right foot gas gangrene Osteomyelitis of the fifth metatarsal and proximal phalanx of fifth toe MRI confirms osteomyelitis of the fifth metatarsal and proximal phalanx of the fifth toe. Sepsis. Present on admission. Etiology secondary to above. Patient meets criteria given the tachycardia, leukocytosis and diagnosis of right foot cellulitis CECILIA -Cr on admission 1.8 DM2 -Uncontrolled -HgbA1c 11.8 HTN -Monitor BP 05/25/2021. MRI confirms osteomyelitis of the fifth metatarsal and proximal phalanx of the fifth toe. Patient also noted to have tissue wound at the lateral foot adjacent to the fifth metatarsal with gas in the subcutaneous tissues. Continue IV antibiotics of ceftriaxone, Flagyl and vancomycin per ID recommendations. Surgery consultation for further evaluation. 05/26/2021. Patient seen in the Force Adjustment Supervisor. Case discussed with Dr. Siddiqi. Patient with significant SFA disease and is currently undergoing revascularization of his right leg. General surgery likely to perform amputation of his fifth toe. Follow-up creatinine in a.m. after procedure. 05/27/2021. General surgery to perform TMA of right fifth toe this morning. Patient received right lower extremity revascularization yesterday with vascular surgery. Continue antibiotics of ceftriaxone, Flagyl and vancomycin. Follow-up wound culture from surgery. Creatinine has improved to 1.3. Continue IV fluid hydration, avoid nephrotoxic agents and continue to monitor renal function. Continue Lantus and SSRI for DM. Continue heparin and Pepcid for DVT and GI prophylaxis History Interval history: No new issues overnight. Patient seen in the Force Adjustment Supervisor. Case discussed with Dr. Siddiqi Hospitalist Physical - Constitutional Vitals: Temp Pulse Resp BP Pulse Ox 98.4 F 95 H 18 134/78 100 05/27/21 03:22 05/27/21 03:22 05/27/21 03:22 05/27/21 03:22 05/27/21 03:22 General appearance: Present: no acute distress - EENT Eyes: Present: PERRL, EOM intact ENT: hearing intact, clear oral mucosa, dentition normal - Neck Neck: Present: supple, normal ROM - Respiratory Respiratory effort: normal Respiratory: bilateral: CTA - Cardiovascular Rhythm: regular Heart Sounds: Present: S1 & S2. Absent: gallop, rub - Extremities Extremities: no ischemia, No edema, Full ROM - Abdominal General gastrointestinal: soft, non-tender, non-distended, normal bowel sounds - Integumentary Integumentary: Present: clear, warm, dry - Neurologic Neurologic: CNII-XII intact, moves all extremities Results - Labs CBC & Chem 7: 05/27/21 04:47 05/27/21 04:47 Labs: Laboratory Last Values WBC 10.3 K/mm3 (4.5-11.0) 05/27/21 04:47 RBC 3.67 M/mm3 (3.65-5.03) 05/27/21 04:47 Hgb 9.9 gm/dl (11.8-15.2) L 05/27/21 04:47 Hct 28.4 % (35.5-45.6) L 05/27/21 04:47 MCV 77 fl (84-94) L 05/27/21 04:47 MCH 27 pg (28-32) L 05/27/21 04:47 MCHC 35 % (32-34) H 05/27/21 04:47 RDW 14.0 % (13.2-15.2) 05/27/21 04:47 Plt Count 446 K/mm3 (140-440) H 05/27/21 04:47 Lymph % (Auto) 18.7 % (13.4-35.0) 05/27/21 04:47 [place] % (Auto) 8.4 % (0.0-7.3) H 05/27/21 04:47 Eos % (Auto) 1.4 % (0.0-4.3) 05/27/21 04:47 Baso % (Auto) 0.8 % (0.0-1.8) 05/27/21 04:47 Lymph # (Auto) 1.9 K/mm3 (1.2-5.4) 05/27/21 04:47 [place] # (Auto) 0.9 K/mm3 (0.0-0.8) H 05/27/21 04:47 Eos # (Auto) 0.1 K/mm3 (0.0-0.4) 05/27/21 04:47 Baso # (Auto) 0.1 K/mm3 (0.0-0.1) 05/27/21 04:47 Seg Neutrophils % 70.7 % (40.0-70.0) H 05/27/21 04:47 Seg Neutrophils # 7.3 K/mm3 (1.8-7.7) 05/27/21 04:47 Sodium 134 mmol/L (137-145) L 05/27/21 04:47 Potassium 4.7 mmol/L (3.6-5.0) 05/27/21 04:47 Chloride 97.4 mmol/L (98-107) L 05/27/21 04:47 Carbon Dioxide 30 mmol/L (22-30) 05/27/21 04:47 Anion Gap 11 mmol/L 05/27/21 04:47 BUN 25 mg/dL (9-20) H 05/27/21 04:47 Creatinine 1.3 mg/dL (0.8-1.3) 05/27/21 04:47 Estimated GFR > 60 ml/min 05/27/21 04:47 BUN/Creatinine Ratio 19 % 05/27/21 04:47 Glucose 264 mg/dL (75-100) H 05/27/21 04:47 POC Glucose 223 mg/dL (70-105) H 05/27/21 07:27 Hemoglobin A1c 11.8 % (4-6) H 05/23/21 23:17 Lactic Acid 1.80 mmol/L (0.7-2.0) 05/23/21 23:17 Calcium 9.3 mg/dL (8.4-10.2) 05/27/21 04:47 Total Bilirubin 0.40 mg/dL (0.1-1.2) 05/23/21 23:17 Direct Bilirubin < 0.2 mg/dL (0-0.2) 05/23/21 23:17 Indirect Bilirubin 0.2 mg/dL 05/23/21 23:17 AST 11 units/L (5-40) 05/23/21 23:17 ALT 11 units/L (7-56) 05/23/21 23:17 Alkaline Phosphatase 107 units/L (35-129) 05/23/21 23:17 Total Protein 8.6 g/dL (6.3-8.2) H 05/23/21 23:17 Albumin 4.0 g/dL (3.9-5) 05/23/21 23:17 Albumin/Globulin Ratio 0.9 % 09/27/21 23:17 Microbiology: Microbiology 05/23/21 23:17 Peripheral/Venous Blood Culture - Preliminary NO GROWTH AFTER 72 HOURS 05/23/21 23:13 Peripheral/Venous Blood Culture - Preliminary NO GROWTH AFTER 72 HOURS Trivedi/IV: Voiding Method Urinal Active Medications - Current Medications Current Medications: Generic Name Dose Route Start Last Admin Trade Name Freq PRN Reason Stop Dose Admin Acetaminophen 650 mg 05/24/21 00:25 Acetaminophen 325 Mg Tab PO Q4H PRN Pain MILD(1-3)/Fever >100.5/ANG Amlodipine Besylate 10 mg 05/24/21 10:00 05/26/21 11:57 Amlodipine 10 Mg Tab PO 10 mg DAILY PANFILO Administration Aspirin 81 mg 05/26/21 16:00 05/26/21 17:01 Aspirin 81 Mg Tab Chew PO 81 mg QDAY PANFILO Administration Clopidogrel Bisulfate 75 mg 05/26/21 16:00 05/26/21 17:01 Clopidogrel 75 Mg Tab PO 75 mg QDAY PANFILO Administration Dextrose 50 ml 05/24/21 00:25 Dextrose 50% In Water (25gm) 50 Ml Syringe IV Q30MIN PRN Hypoglycemia Protocol Docusate Sodium 100 mg 05/24/21 10:00 05/26/21 21:37 Docusate Sodium 100 Mg Cap PO 100 mg BID PANFILO Administration Famotidine 10 mg 05/24/21 10:00 05/26/21 21:37 Famotidine 20 Mg/2 Ml Inj IV 10 mg BID PANFILO Administration Gabapentin 100 mg 05/24/21 10:00 05/26/21 11:57 Gabapentin 100 Mg Cap PO Not Given DAILY PANFILO Heparin Sodium (Porcine) 5,000 unit 05/24/21 10:00 05/26/21 21:37 Heparin 5,000 Unit/1 Ml Vial SUB-Q 5,000 unit Q12HR PANFILO Administration Vancomycin HCl 1,500 mg/ 530 mls @ 333.333 mls/hr 05/25/21 03:00 05/27/21 02:23 Sodium Chloride IV 333.333 mls/hr Q24H PANFILO Administration Ceftriaxone Sodium 2 gm in 100 mls @ 200 mls/hr 05/24/21 14:00 05/26/21 11:53 Rocephin/Ns 2 Gm/100 Ml IV 200 mls/hr Q24HR PANFILO Administration Protocol Metronidazole 500 mg in 100 mls @ 100 mls/hr 05/24/21 14:00 05/27/21 05:10 Flagyl 500 Mg/100 Ml IV 100 mls/hr Q8H PANFILO Administration Protocol Insulin Glargine 15 units 05/24/21 08:00 05/26/21 11:09 Insulin Glargine 100 Units/Ml SUB-Q Not Given QAMDIAB [facility] Insulin Human Lispro 0 unit 05/24/21 07:30 05/26/21 21:39 Insulin Lispro 100 Unit/Ml SUB-Q 6 unit ACHS [facility] Administration Protocol Morphine Sulfate 4 mg 05/24/21 00:27 Morphine 4 Mg/1 Ml Inj IV Q4H PRN Pain , Severe (7-10) Naloxone HCl 0.1 mg 05/24/21 00:27 Naloxone 0.4 Mg/1 Ml Inj IV Q2MIN PRN Res Rate </= 8 or 02 SAT < 92% Ondansetron HCl 4 mg 05/24/21 00:25 Ondansetron 4 Mg/2 Ml Inj IV Q6H PRN Nausea And Vomiting Oxycodone/Acetaminophen 1 tab 05/24/21 00:27 Oxycodone /Acetaminophen 5-325mg Tab PO Q6H PRN Pain, Moderate (4-6) Pravastatin Sodium 40 mg 05/24/21 22:00 05/26/21 21:37 Pravastatin 40 Mg Tab PO 40 mg QHS PANFILO Administration Sodium Chloride 10 ml 05/24/21 10:00 05/26/21 21:38 Sodium Chloride 0.9% 10 Ml Flush Syringe IV 10 ml BID PANFILO Administration Sodium Chloride 10 ml 05/24/21 00:25 Sodium Chloride 0.9% 10 Ml Flush Syringe IV PRN PRN LINE FLUSH
[2021-05-27] MEDS: cefTRIAXone/NS 2 GM/100 ML 2 GM/100 ML BAG IV SCH (10:59)
[2021-05-27] MEDS: ASPIRIN 81 MG TAB CHEW PO SCH ×2 (11:00→11:13)
[2021-05-27] MEDS: amLODIPine 10 MG TAB PO SCH (11:00)
[2021-05-27] MEDS: CLOPIDOGREL 75 MG TAB PO SCH (11:00)
[2021-05-27] MEDS: GABAPENTIN 100 MG CAP PO SCH (11:00)
[2021-05-27] MEDS: DOCUSATE SODIUM 100 MG CAP PO SCH ×2 (11:00→22:45)
[2021-05-27] MEDS: HEPARIN 5,000 UNIT/1 ML VIAL SUB-Q SCH ×2 (11:01→22:46)
[2021-05-27] MEDS: FAMOTIDINE 20 MG/2 ML INJ IV SCH ×2 (11:01→22:45)
--- NOTE | 2021-05-27 12:27 | Anesthesia Consultation ---
<KENNETH RUBIO - Last Filed: 05/27/21 12:23> Anesthesia Consult and Med Hx Date of service: 05/27/21 - Airway Anesthetic Teeth Evaluation: Good ROM Head & Neck: Adequate Mental/Hyoid Distance: Adequate Mallampati Class: Class II Intubation Access Assessment: Good - Pulmonary Exam CTA: Yes - Cardiac Exam Cardiac Exam: No Murmur - Pre-Operative Health Status ASA Pre-Surgery Classification: ASA2 Proposed Anesthetic Plan: General - Pulmonary COPD: No - Cardiovascular System Hx Hypertension: Yes - Gastrointestinal Hx Gastroesophageal Reflux Disease: No - Endocrine Hx End Stage Renal Disease: No Hx Insulin Dependent Diabetes: No Hx Non-Insulin Dependent Diabetes: Yes - Other Systems Hx Cancer: No - Additional Comments Anesthesia Medical History Comments: H/H : 9.9/28.4. K+: 4.7. FBS@12pm: 238 <SHANNAN GARCIA - Last Filed: 05/27/21 15:08> Anesthesia Consult and Med Hx - Pre-Operative Health Status ASA Pre-Surgery Classification: ASA3
--- NOTE | 2021-05-27 12:28 | Anesthesia Day of Surgery ---
Anesthesia Day of Surgery - Day of Surgery Patient Examined: Yes Patient H&P Reviewed: Yes Patient is NPO: Yes
--- NOTE | 2021-05-27 12:53 | Progress Note ---
Assessment and Plan Cultures: 05/23/2021 blood culture: no growth A/P: 60-year-old male with diabetes, hypertension admitted with: #Sepsis, secondary to right diabetic foot infection with associated fifth toe osteomyelitis, gangrenous change: Follows with outpatient podiatry, failed outpatient therapy. Non-smoker. #Diabetes uncontrolled #CECILIA: improved #Peripheral vascular disease: noted on arterial US. Status post RLE revascularization 05/26/2021 Recs: -continue Ceftriaxone, Flagyl and vancomycin -wound culture, not collected yet, please send deep cultures from surgery -Awaiting debridement and TMA of right fifth toe -Follow-up cultures, anticipate discharge on oral antibiotics following surgical source control Mike Briggs MD, FACP [facility], [place], [facility] O: [phone] F: [phone] Subjective Date of service: 05/27/21 Interval history: No fever. No complaints. Awaiting surgery. Objective - Exam Narrative Exam: Physical Exam: Constitutional: Alert, cooperative. No acute distress Head, Ears, Nose: Normocephalic, atraumatic. External ears, nose normal Eyes: Conjunctivae/corneas clear. No icterus. No ptosis. Neck: Supple, no meningeal signs Cardiovascular: S1, S2 + Respiratory: Good air entry, clear to auscultation bilaterally GI: Soft, non-tender; bowel sounds normal. No peritoneal signs Musculoskeletal: Right foot in dressing, gangrenous 5th toe. Skin: No rash or abscess Hem/Lymphatic: No palpable cervical or supraclavicular nodes. No lymphangitis Psych: Mood ok. Affect normal Neurological: Awake, alert, oriented. No gross abnormality - Constitutional Vitals: Vital Signs Temp Pulse Resp BP Pulse Ox 98.5 F 97 H 18 135/89 98 05/27/21 12:00 05/27/21 12:01 05/27/21 12:00 05/27/21 12:00 05/27/21 12:01 Temperature -Last 24 Hours Temperature 98.5 F Temperature 98.4 F Temperature 98.4 F Temperature 98.6 F Temperature 98.0 F - Labs CBC & Chem 7: 05/27/21 04:47 05/27/21 04:47 Labs: Abnormal lab results 05/26/21 05/26/21 05/27/21 Range/Units 15:54 20:56 04:47 Hgb 9.9 L (11.8-15.2) gm/dl Hct 28.4 L (35.5-45.6) % MCV 77 L (84-94) fl MCH 27 L (28-32) pg MCHC 35 H (32-34) % Plt Count 446 H (140-440) K/mm3 [place] % (Auto) 8.4 H (0.0-7.3) % [place] # (Auto) 0.9 H (0.0-0.8) K/mm3 Seg Neutrophils % 70.7 H (40.0-70.0) % Sodium (137-145) mmol/L Chloride (98-107) mmol/L BUN (9-20) mg/dL Glucose (75-100) mg/dL POC Glucose 160 H 339 H (70-105) mg/dL 05/27/21 05/27/21 05/27/21 Range/Units 04:47 07:27 12:11 Hgb (11.8-15.2) gm/dl Hct (35.5-45.6) % MCV (84-94) fl MCH (28-32) pg MCHC (32-34) % Plt Count (140-440) K/mm3 [place] % (Auto) (0.0-7.3) % [place] # (Auto) (0.0-0.8) K/mm3 Seg Neutrophils % (40.0-70.0) % Sodium 134 L (137-145) mmol/L Chloride 97.4 L (98-107) mmol/L BUN 25 H (9-20) mg/dL Glucose 264 H (75-100) mg/dL POC Glucose 223 H 238 H (70-105) mg/dL
[2021-05-27] MEDS ORDERED: fentaNYL 100 MCG/2 ML INJ ONE (14:27)
[2021-05-27] MEDS ORDERED: ONDANSETRON 4 MG/2 ML INJ ONE (14:27)
[2021-05-27] MEDS ORDERED: LIDOCAINE MPF (2%) 20 MG/1 ML VIAL 5 ML ONE (14:27)
[2021-05-27] MEDS ORDERED: propofoL 200 MG/20 ML VIAL IV ONE (14:28)
[2021-05-27] MEDS ORDERED: ceFAZolin 1 GM VIAL ONE ×2 (14:59)
[2021-05-27] MEDS ORDERED: SODIUM CHLORIDE 0.9% IRR 1,500 ML BOTTLE IR ONE (15:11)
--- NOTE | 2021-05-27 15:38 | Procedure Note ---
Date of procedure: 05/27/21 Pre-op diagnosis: Osteomyelitis of right 5th toe and metatarsal head Post-op diagnosis: same Procedure: Right 5th TMA Description of procedure: Pt was placed supine on the OR table. General anesthesia was administered. Right foot was prepped and draped. A tear drop incision was made about the 5th toe and the toe amputated at the MTP joint. Periosteum was elevated off of the distal metatarsal shaft and the shaft amputated mid-way with the bone saw. Necrotic soft tissue was sharply debrided. Wound was irrigated with warm saline. Wound was packed open with a dilute Betadine moistened Kerlix roll followed by dry 4 X 4's, Kerlix wrap and Coban w rap. Pt tolerated the procedure well and was taken to PACU in stable condition. Anesthesia: EVI Surgeon: ALISON RICHARDS Estimated blood loss: minimal Pathology: list (1) Right 5th toe 2) Right 5th metatarsal head) Specimen disposition: to lab Condition: stable Disposition: PACU
[2021-05-27] MEDS ORDERED: PHENYLEPHRINE/NS 1,000 MCG/10 ML SYRINGE (OR USE) IV ONE (15:50)
--- NOTE | 2021-05-27 16:17 | Post Anesthesia Evaluation ---
- Post Anesthesia Evaluation Patient Participated: Yes Airway Patent: Yes Stable Respiratory Function: Yes Nausea/Vomiting: No Temp > 96.8F: Yes Pain Manageable: Yes Adequeate Hydration: Yes Anesthesia Complications: No
[2021-05-27] MEDS: PRAVASTATIN 40 MG TAB PO SCH (22:45)
[2021-05-28 02:37] LABS: Basophils # (Auto) 0.1 K/mm3 (0.0-0.1); Basophils % (Auto) 0.7 % (0.0-1.8); Eosinophils # (Auto) 0.1 K/mm3 (0.0-0.4); Eosinophils % (Auto) 0.5 % (0.0-4.3); Hematocrit 29.1 % (35.5-45.6); Hemoglobin 9.6 gm/dl (11.8-15.2); Lymphocytes # (Auto) 1.5 K/mm3 (1.2-5.4); Lymphocytes % (Auto) 12.6 % (13.4-35.0); Mean Corpuscular HGB Conc 33 % (32-34); Mean Corpuscular Volume 80 fl (84-94); Monocytes % (Auto) 8.1 % (0.0-7.3); Platelet Count 433 K/mm3 (140-440); Red Blood Count 3.65 M/mm3 (3.65-5.03); Red Cell Distribution Width 14.6 % (13.2-15.2)
[2021-05-28 03:22] LABS: BUN/Creatinine Ratio 19; Blood Urea Nitrogen 27 mg/dL (9-20); Calcium 8.9 mg/dL (8.4-10.2); Hemolysis Index 10
[2021-05-28] MEDS: VANCOMYCIN 1,500 MG in SODIUM CHLORIDE 0.9% 500 ML 500 ML IV SCH (03:45)
[2021-05-28] MEDS: metroNIDAZOLE/NS 500 MG/100 ML 500 MG/100 ML BAG IV SCH ×3 (06:05→21:18)
--- NOTE | 2021-05-28 08:41 | Progress Note ---
Assessment and Plan Assessment and plan: Right foot cellulitis/Right foot gas gangrene Osteomyelitis of the fifth metatarsal and proximal phalanx of fifth toe MRI confirms osteomyelitis of the fifth metatarsal and proximal phalanx of the fifth toe. Sepsis. Present on admission. Etiology secondary to above. Patient meets criteria given the tachycardia, leukocytosis and diagnosis of right foot cellulitis CECILIA -Cr on admission 1.8 DM2 -Uncontrolled -HgbA1c 11.8 HTN -Monitor BP 05/25/2021. MRI confirms osteomyelitis of the fifth metatarsal and proximal phalanx of the fifth toe. Patient also noted to have tissue wound at the lateral foot adjacent to the fifth metatarsal with gas in the subcutaneous tissues. Continue IV antibiotics of ceftriaxone, Flagyl and vancomycin per ID recommendations. Surgery consultation for further evaluation. 05/26/2021. Patient seen in the Staffing Administrator. Case discussed with Dr. Siddiqi. Patient with significant SFA disease and is currently undergoing revascularization of his right leg. General surgery likely to perform amputation of his fifth toe. Follow-up creatinine in a.m. after procedure. 05/27/2021. General surgery to perform TMA of right fifth toe this morning. Patient received right lower extremity revascularization yesterday with vascular surgery. Continue antibiotics of ceftriaxone, Flagyl and vancomycin. Follow-up wound culture from surgery. Creatinine has improved to 1.3. Continue IV fluid hydration, avoid nephrotoxic agents and continue to monitor renal function. Continue Lantus and SSRI for DM. Continue heparin and Pepcid for DVT and GI prophylaxis 05/28/2021. Patient with right fifth TMA yesterday. Continue antibiotics per ID--Await recommendations for discharge. Creatinine remains stable at 1.4. Continue Lantus and SSRI for DM. Continue heparin and Pepcid for DVT and GI prophylaxis. PT evaluation History Interval history: No new issues overnight. Hospitalist Physical - Constitutional Vitals: Temp Pulse Resp BP Pulse Ox 99.1 F 98 H 20 112/80 94 05/28/21 05:53 05/28/21 05:53 05/28/21 05:53 05/28/21 05:53 05/28/21 05:53 General appearance: Present: no acute distress - EENT Eyes: Present: PERRL, EOM intact ENT: hearing intact, clear oral mucosa, dentition normal - Neck Neck: Present: supple, normal ROM - Respiratory Respiratory effort: normal Respiratory: bilateral: CTA - Cardiovascular Rhythm: regular Heart Sounds: Present: S1 & S2. Absent: gallop, rub - Extremities Extremities: no ischemia, No edema, Full ROM - Abdominal General gastrointestinal: soft, non-tender, non-distended, normal bowel sounds - Integumentary Integumentary: Present: clear, warm, dry - Neurologic Neurologic: CNII-XII intact, moves all extremities Results - Labs CBC & Chem 7: 05/28/21 02:17 05/28/21 02:17 Labs: Laboratory Last Values WBC 11.8 K/mm3 (4.5-11.0) H 05/28/21 02:17 RBC 3.65 M/mm3 (3.65-5.03) 05/28/21 02:17 Hgb 9.6 gm/dl (11.8-15.2) L 05/28/21 02:17 Hct 29.1 % (35.5-45.6) L 05/28/21 02:17 MCV 80 fl (84-94) L 05/28/21 02:17 MCH 26 pg (28-32) L 05/28/21 02:17 MCHC 33 % (32-34) 05/28/21 02:17 RDW 14.6 % (13.2-15.2) 05/28/21 02:17 Plt Count 433 K/mm3 (140-440) 05/28/21 02:17 Lymph % (Auto) 12.6 % (13.4-35.0) L 05/28/21 02:17 [place] % (Auto) 8.1 % (0.0-7.3) H 05/28/21 02:17 Eos % (Auto) 0.5 % (0.0-4.3) 05/28/21 02:17 Baso % (Auto) 0.7 % (0.0-1.8) 05/28/21 02:17 Lymph # (Auto) 1.5 K/mm3 (1.2-5.4) 05/28/21 02:17 [place] # (Auto) 1.0 K/mm3 (0.0-0.8) H 05/28/21 02:17 Eos # (Auto) 0.1 K/mm3 (0.0-0.4) 05/28/21 02:17 Baso # (Auto) 0.1 K/mm3 (0.0-0.1) 05/28/21 02:17 Seg Neutrophils % 78.1 % (40.0-70.0) H 05/28/21 02:17 Seg Neutrophils # 9.2 K/mm3 (1.8-7.7) H 05/28/21 02:17 Sodium 135 mmol/L (137-145) L 05/28/21 02:17 Potassium 4.9 mmol/L (3.6-5.0) 05/28/21 02:17 Chloride 98.9 mmol/L (98-107) 05/28/21 02:17 Carbon Dioxide 20 mmol/L (22-30) L D 05/28/21 02:17 Anion Gap 21 mmol/L 05/28/21 02:17 BUN 27 mg/dL (9-20) H 05/28/21 02:17 Creatinine 1.4 mg/dL (0.8-1.3) H 05/28/21 02:17 Estimated GFR > 60 ml/min 05/28/21 02:17 BUN/Creatinine Ratio 19 % 05/28/21 02:17 Glucose 300 mg/dL (75-100) H 05/28/21 02:17 POC Glucose 207 mg/dL (70-105) H 05/28/21 08:02 Hemoglobin A1c 11.8 % (4-6) H 05/23/21 23:17 Lactic Acid 1.80 mmol/L (0.7-2.0) 05/23/21 23:17 Calcium 8.9 mg/dL (8.4-10.2) 05/28/21 02:17 Total Bilirubin 0.40 mg/dL (0.1-1.2) 05/23/21 23:17 Direct Bilirubin < 0.2 mg/dL (0-0.2) 05/23/21 23:17 Indirect Bilirubin 0.2 mg/dL 05/23/21 23:17 AST 11 units/L (5-40) 05/23/21 23:17 ALT 11 units/L (7-56) 05/23/21 23:17 Alkaline Phosphatase 107 units/L (35-129) 05/23/21 23:17 Total Protein 8.6 g/dL (6.3-8.2) H 05/23/21 23:17 Albumin 4.0 g/dL (3.9-5) 05/23/21 23:17 Albumin/Globulin Ratio 0.9 % 05/23/21 23:17 Vancomycin Trough 6.6 ug/mL (5.0-20.0) 05/28/21 02:17 Microbiology: Microbiology 05/23/21 23:17 Peripheral/Venous Blood Culture - Preliminary NO GROWTH AFTER 4 DAYS 05/23/21 23:13 Peripheral/Venous Blood Culture - Preliminary NO GROWTH AFTER 4 DAYS Trivedi/IV: Voiding Method Toilet Active Medications - Current Medications Current Medications: Generic Name Dose Route Start Last Admin Trade Name Freq PRN Reason Stop Dose Admin Acetaminophen 650 mg 05/24/21 00:25 Acetaminophen 325 Mg Tab PO Q4H PRN Pain MILD(1-3)/Fever >100.5/ANG Amlodipine Besylate 10 mg 05/24/21 10:00 05/27/21 11:00 Amlodipine 10 Mg Tab PO 10 mg DAILY PANFILO Administration Aspirin 81 mg 05/26/21 16:00 05/27/21 11:13 Aspirin 81 Mg Tab Chew PO Not Given QDAY PANFILO Clopidogrel Bisulfate 75 mg 05/26/21 16:00 05/27/21 11:00 Clopidogrel 75 Mg Tab PO 75 mg QDAY PANFILO Administration Dextrose 50 ml 05/24/21 00:25 Dextrose 50% In Water (25gm) 50 Ml Syringe IV Q30MIN PRN Hypoglycemia Protocol Docusate Sodium 100 mg 05/24/21 10:00 05/27/21 22:45 Docusate Sodium 100 Mg Cap PO 100 mg BID PANFILO Administration Famotidine 10 mg 05/24/21 10:00 05/27/21 22:45 Famotidine 20 Mg/2 Ml Inj IV 10 mg BID PANFILO Administration Gabapentin 100 mg 05/24/21 10:00 05/27/21 11:00 Gabapentin 100 Mg Cap PO 100 mg DAILY PANFILO Administration Heparin Sodium (Porcine) 5,000 unit 05/24/21 10:00 05/27/21 22:46 Heparin 5,000 Unit/1 Ml Vial SUB-Q 5,000 unit Q12HR PANFILO Administration Ceftriaxone Sodium 2 gm in 100 mls @ 200 mls/hr 05/24/21 14:00 05/27/21 10:59 Rocephin/Ns 2 Gm/100 Ml IV 200 mls/hr Q24HR PANFILO Administration Protocol Metronidazole 500 mg in 100 mls @ 100 mls/hr 05/24/21 14:00 05/28/21 06:05 Flagyl 500 Mg/100 Ml IV 100 mls/hr Q8H [facility] Administration Protocol Vancomycin HCl 1,250 mg/ 275 mls @ 166.667 mls/hr 05/28/21 16:00 Sodium Chloride IV Q12H [facility] Insulin Glargine 15 units 05/24/21 08:00 05/27/21 08:20 Insulin Glargine 100 Units/Ml SUB-Q Not Given QAMDIAB [facility] Insulin Human Lispro 0 unit 05/24/21 07:30 05/27/21 23:30 Insulin Lispro 100 Unit/Ml SUB-Q [address] [facility] Administration Protocol Morphine Sulfate 4 mg 05/24/21 00:27 Morphine 4 Mg/1 Ml Inj IV Q4H PRN Pain , Severe (7-10) Naloxone HCl 0.1 mg 05/24/21 00:27 Naloxone 0.4 Mg/1 Ml Inj IV Q2MIN PRN Res Rate </= 8 or 02 SAT < 92% Ondansetron HCl 4 mg 05/24/21 00:25 Ondansetron 4 Mg/2 Ml Inj IV Q6H PRN Nausea And Vomiting Oxycodone/Acetaminophen 1 tab 05/24/21 00:27 Oxycodone /Acetaminophen 5-325mg Tab PO Q6H PRN Pain, Moderate (4-6) Pravastatin Sodium 40 mg 05/24/21 22:00 05/27/21 22:45 Pravastatin 40 Mg Tab PO 40 mg QHS PANFILO Administration Sodium Chloride 10 ml 05/24/21 10:00 05/27/21 22:51 Sodium Chloride 0.9% 10 Ml Flush Syringe IV 10 ml BID PANFILO Administration Sodium Chloride 10 ml 05/24/21 00:25 Sodium Chloride 0.9% 10 Ml Flush Syringe IV PRN PRN LINE FLUSH
--- NOTE | 2021-05-28 09:07 | Progress Note ---
Assessment and Plan Patient doing well following his revascularization procedure. Given the degree of his atherosclerotic disease, the patient will need to follow-up in our office in 2 weeks following discharge. He is okay to discharge home from a vascular standpoint. Subjective Date of service: 05/28/21 Principal diagnosis: PVD with gangrene Interval history: Patient status post amputation with Dr. Mejia and postop revascularization of his right leg. Patient is doing very well. Complains of only minimal postsurgical normal pain. Objective - Constitutional Vitals: Vital Signs - 12hr 05/27/21 05/28/21 05/28/21 22:00 00:19 05:53 Temperature 97.6 F 99.1 F Pulse Rate 110 H 110 H 98 H Pulse Rate [ 98 H Right Radial] Respiratory 18 18 20 Rate Blood Pressure 137/77 112/80 O2 Sat by Pulse 98 90 94 Oximetry 05/28/21 05/28/21 07:55 09:05 Temperature 98.8 F Pulse Rate 93 H Pulse Rate [ 98 H Right Radial] Respiratory 18 18 Rate Blood Pressure 109/64 O2 Sat by Pulse 93 98 Oximetry General appearance: Present: no acute distress - EENT Eyes: EOM intact ENT: hearing intact - Neck Neck: supple, normal ROM - Respiratory Respiratory effort: normal Extremity abnormal: other (Bandage in place right foot) - Gastrointestinal General gastrointestinal: Present: deferred Rectal Exam: deferred - Genitourinary Male genitourinary: deferred - Psychiatric Psychiatric: appropriate mood/affect, cooperative - Labs CBC & Chem 7: 05/28/21 02:17 05/28/21 02:17 Labs: Abnormal lab results 05/27/21 05/27/21 05/27/21 Range/Units 12:11 15:38 17:10 WBC (4.5-11.0) K/mm3 Hgb (11.8-15.2) gm/dl Hct (35.5-45.6) % MCV (84-94) fl MCH (28-32) pg Lymph % (Auto) (13.4-35.0) % [place] % (Auto) (0.0-7.3) % [place] # (Auto) (0.0-0.8) K/mm3 Seg Neutrophils % (40.0-70.0) % Seg Neutrophils # (1.8-7.7) K/mm3 Sodium (137-145) mmol/L Carbon Dioxide (22-30) mmol/L BUN (9-20) mg/dL Creatinine (0.8-1.3) mg/dL Glucose (75-100) mg/dL POC Glucose 238 H 202 H 237 H (70-105) mg/dL 05/27/21 05/28/21 05/28/21 Range/Units 22:01 02:17 02:17 WBC 11.8 H (4.5-11.0) K/mm3 Hgb 9.6 L (11.8-15.2) gm/dl Hct 29.1 L (35.5-45.6) % MCV 80 L (84-94) fl MCH 26 L (28-32) pg Lymph % (Auto) 12.6 L (13.4-35.0) % [place] % (Auto) 8.1 H (0.0-7.3) % [place] # (Auto) 1.0 H (0.0-0.8) K/mm3 Seg Neutrophils % 78.1 H (40.0-70.0) % Seg Neutrophils # 9.2 H (1.8-7.7) K/mm3 Sodium 135 L (137-145) mmol/L Carbon Dioxide 20 L D (22-30) mmol/L BUN 27 H (9-20) mg/dL Creatinine 1.4 H (0.8-1.3) mg/dL Glucose 300 H (75-100) mg/dL POC Glucose 365 H (70-105) mg/dL 05/28/21 Range/Units 08:02 WBC (4.5-11.0) K/mm3 Hgb (11.8-15.2) gm/dl Hct (35.5-45.6) % MCV (84-94) fl MCH (28-32) pg Lymph % (Auto) (13.4-35.0) % [place] % (Auto) (0.0-7.3) % [place] # (Auto) (0.0-0.8) K/mm3 Seg Neutrophils % (40.0-70.0) % Seg Neutrophils # (1.8-7.7) K/mm3 Sodium (137-145) mmol/L Carbon Dioxide (22-30) mmol/L BUN (9-20) mg/dL Creatinine (0.8-1.3) mg/dL Glucose (75-100) mg/dL POC Glucose 207 H (70-105) mg/dL Medications & Allergies - Medications Allergies/Adverse Reactions: Allergies No Known Allergies Allergy (Verified 05/23/21 22:32) Home Medications: Home Medications Medication Instructions Recorded Confirmed Last Taken Type Amlodipine Besylate [Norvasc] 10 mg PO DAILY 10/30/14 05/25/21 10/29/14 History Gabapentin 100 mg PO DAILY 10/30/14 05/25/21 10/29/14 History Losartan/Hydrochlorothiazide 100 - 125 each PO DAILY 10/30/14 05/25/21 10/29/14 History [Hyzaar 100-25 TAB] Metformin HCl [Fortamet ER] 1,000 mg PO QDAY 10/30/14 05/25/21 10/29/14 History Simvastatin 20 mg PO QHS 10/30/14 05/25/21 10/29/14 History glipiZIDE [Glucotrol] 10 mg PO QDAY 10/30/14 05/25/21 10/29/14 History Amoxicillin/K Clav Tab [Augmentin 1 each PO Q12H #10 day 11/02/14 05/25/21 Unknown Rx 875MG TAB] Active Medications: Generic Name Dose Route Start Last Admin Trade Name Terryq PRN Reason Stop Dose Admin Acetaminophen 650 mg 05/24/21 00:25 Acetaminophen 325 Mg Tab PO Q4H PRN Pain MILD(1-3)/Fever >100.5/ANG Amlodipine Besylate 10 mg 05/24/21 10:00 05/27/21 11:00 Amlodipine 10 Mg Tab PO 10 mg DAILY PANFILO Administration Aspirin 81 mg 05/26/21 16:00 05/27/21 11:13 Aspirin 81 Mg Tab Chew PO Not Given QDAY PANFILO Clopidogrel Bisulfate 75 mg 05/26/21 16:00 05/27/21 11:00 Clopidogrel 75 Mg Tab PO 75 mg QDAY PANFILO Administration Dextrose 50 ml 05/24/21 00:25 Dextrose 50% In Water (25gm) 50 Ml Syringe IV Q30MIN PRN Hypoglycemia Protocol Docusate Sodium 100 mg 05/24/21 10:00 05/27/21 22:45 Docusate Sodium 100 Mg Cap PO 100 mg BID PANFILO Administration Famotidine 10 mg 05/24/21 10:00 05/27/21 22:45 Famotidine 20 Mg/2 Ml Inj IV 10 mg BID PANFILO Administration Gabapentin 100 mg 05/24/21 10:00 05/27/21 11:00 Gabapentin 100 Mg Cap PO 100 mg DAILY PANFILO Administration Heparin Sodium (Porcine) 5,000 unit 05/24/21 10:00 05/27/21 22:46 Heparin 5,000 Unit/1 Ml Vial SUB-Q 5,000 unit Q12HR [facility] Administration Ceftriaxone Sodium 2 gm in 100 mls @ 200 mls/hr 05/24/21 14:00 05/27/21 10:59 Rocephin/Ns 2 Gm/100 Ml IV 200 mls/hr Q24HR [facility] Administration Protocol Metronidazole 500 mg in 100 mls @ 100 mls/hr 05/24/21 14:00 05/28/21 06:05 Flagyl 500 Mg/100 Ml IV 100 mls/hr Q8H [facility] Administration Protocol Vancomycin HCl 1,250 mg/ 275 mls @ 166.667 mls/hr 05/28/21 16:00 Sodium Chloride IV Q12H [facility] Insulin Glargine 15 units 05/24/21 08:00 05/27/21 08:20 Insulin Glargine 100 Units/Ml SUB-Q Not Given QAMDIAB [facility] Insulin Human Lispro 0 unit 05/24/21 07:30 05/27/21 23:30 Insulin Lispro 100 Unit/Ml SUB-Q 8 unit ACHS [facility] Administration Protocol Morphine Sulfate 4 mg 05/24/21 00:27 Morphine 4 Mg/1 Ml Inj IV Q4H PRN Pain , Severe (7-10) Naloxone HCl 0.1 mg 05/24/21 00:27 Naloxone 0.4 Mg/1 Ml Inj IV Q2MIN PRN Res Rate </= 8 or 02 SAT < 92% Ondansetron HCl 4 mg 05/24/21 00:25 Ondansetron 4 Mg/2 Ml Inj IV Q6H PRN Nausea And Vomiting Oxycodone/Acetaminophen 1 tab 05/24/21 00:27 Oxycodone /Acetaminophen 5-325mg Tab PO Q6H PRN Pain, Moderate (4-6) Pravastatin Sodium 40 mg 05/24/21 22:00 05/27/21 22:45 Pravastatin 40 Mg Tab PO 40 mg QHS [facility] Administration Sodium Chloride 10 ml 05/24/21 10:00 05/27/21 22:51 Sodium Chloride 0.9% 10 Ml Flush Syringe IV 10 ml BID PANFILO Administration Sodium Chloride 10 ml 05/24/21 00:25 Sodium Chloride 0.9% 10 Ml Flush Syringe IV PRN PRN LINE FLUSH
[2021-05-28] MEDS: HEPARIN 5,000 UNIT/1 ML VIAL SUB-Q SCH ×2 (09:32→21:20)
[2021-05-28] MEDS: cefTRIAXone/NS 2 GM/100 ML 2 GM/100 ML BAG IV SCH (09:48)
[2021-05-28] MEDS: ASPIRIN 81 MG TAB CHEW PO SCH (09:48)
[2021-05-28] MEDS: FAMOTIDINE 20 MG/2 ML INJ IV SCH (09:48)
[2021-05-28] MEDS: amLODIPine 10 MG TAB PO SCH (09:48)
[2021-05-28] MEDS: CLOPIDOGREL 75 MG TAB PO SCH (09:49)
[2021-05-28] MEDS: GABAPENTIN 100 MG CAP PO SCH (09:49)
[2021-05-28] MEDS: DOCUSATE SODIUM 100 MG CAP PO SCH ×2 (09:49→21:18)
[2021-05-28] MEDS: INSULIN GLARGINE 100 UNITS/ML SUB-Q SCH (09:49)
[2021-05-28] MEDS: INSULIN LISPRO 100 UNIT/ML SUB-Q SCH ×4 (09:49→21:55)
[2021-05-28] MEDS ORDERED: SODIUM HYPOCHLORITE, DAKIN'S FULL STRENGTH (0.5%) 473 ML TOPICAL SOLN TP PRN (13:22)
[2021-05-28] MEDS: VANCOMYCIN 1,250 MG in SODIUM CHLORIDE 0.9% 250ML 250 ML IV SCH (17:15)
[2021-05-28] MEDS: PRAVASTATIN 40 MG TAB PO SCH (21:18)
[2021-05-28] MEDS: FAMOTIDINE 10 MG TAB PO SCH (21:18)
[2021-05-29] MEDS: VANCOMYCIN 1,250 MG in SODIUM CHLORIDE 0.9% 250ML 250 ML IV SCH ×2 (03:55→16:26)
[2021-05-29] MEDS: metroNIDAZOLE/NS 500 MG/100 ML 500 MG/100 ML BAG IV SCH ×3 (05:40→22:35)
[2021-05-29 06:34] LABS: Basophils # (Auto) 0.1 K/mm3 (0.0-0.1); Basophils % (Auto) 0.6 % (0.0-1.8); Eosinophils # (Auto) 0.2 K/mm3 (0.0-0.4); Eosinophils % (Auto) 1.8 % (0.0-4.3); Hematocrit 27.6 % (35.5-45.6); Hemoglobin 9.2 gm/dl (11.8-15.2); Lymphocytes # (Auto) 2.3 K/mm3 (1.2-5.4); Mean Corpuscular HGB Conc 33 % (32-34); Mean Corpuscular Volume 79 fl (84-94); Monocytes # (Auto) 1.1 K/mm3 (0.0-0.8); Monocytes % (Auto) 10.3 % (0.0-7.3); Platelet Count 417 K/mm3 (140-440); Red Cell Distribution Width 14.4 % (13.2-15.2)
[2021-05-29 06:42] LABS: BUN/Creatinine Ratio 16; Blood Urea Nitrogen 19 mg/dL (9-20); Calcium 9.1 mg/dL (8.4-10.2); Hemolysis Index 0
[2021-05-29] MEDS: cefTRIAXone/NS 2 GM/100 ML 2 GM/100 ML BAG IV SCH (09:14)
[2021-05-29] MEDS: CLOPIDOGREL 75 MG TAB PO SCH (09:21)
[2021-05-29] MEDS: FAMOTIDINE 10 MG TAB PO SCH ×2 (09:21→22:29)
[2021-05-29] MEDS: DOCUSATE SODIUM 100 MG CAP PO SCH ×2 (09:22→22:29)
[2021-05-29] MEDS: amLODIPine 10 MG TAB PO SCH (09:22)
[2021-05-29] MEDS: ASPIRIN 81 MG TAB CHEW PO SCH (09:22)
[2021-05-29] MEDS: HEPARIN 5,000 UNIT/1 ML VIAL SUB-Q SCH ×2 (09:23→22:29)
[2021-05-29] MEDS: INSULIN GLARGINE 100 UNITS/ML SUB-Q SCH (09:23)
[2021-05-29] MEDS: GABAPENTIN 100 MG CAP PO SCH (09:23)
[2021-05-29] MEDS: INSULIN LISPRO 100 UNIT/ML SUB-Q SCH ×4 (09:24→22:29)
--- NOTE | 2021-05-29 09:27 | Progress Note ---
Assessment and Plan Assessment and plan: Right foot cellulitis/Right foot gas gangrene Osteomyelitis of the fifth metatarsal and proximal phalanx of fifth toe MRI confirms osteomyelitis of the fifth metatarsal and proximal phalanx of the fifth toe. Sepsis. Present on admission. Etiology secondary to above. Patient meets criteria given the tachycardia, leukocytosis and diagnosis of right foot cellulitis CECILIA secondary to ATN from sepsis -Cr on admission 1.8 DM2 -Uncontrolled -HgbA1c 11.8 HTN -Monitor BP 05/25/2021. MRI confirms osteomyelitis of the fifth metatarsal and proximal phalanx of the fifth toe. Patient also noted to have tissue wound at the lateral foot adjacent to the fifth metatarsal with gas in the subcutaneous tissues. Continue IV antibiotics of ceftriaxone, Flagyl and vancomycin per ID recommendations. Surgery consultation for further evaluation. 05/26/2021. Patient seen in the [facility]. Case discussed with Dr. Siddiqi. Patient with significant SFA disease and is currently undergoing revascularization of his right leg. General surgery likely to perform amputation of his fifth toe. Follow-up creatinine in a.m. after procedure. 05/27/2021. General surgery to perform TMA of right fifth toe this morning. Patient received right lower extremity revascularization yesterday with vascular surgery. Continue antibiotics of ceftriaxone, Flagyl and vancomycin. Follow-up wound culture from surgery. Creatinine has improved to 1.3. Continue IV fluid hydration, avoid nephrotoxic agents and continue to monitor renal function. Continue Lantus and SSRI for DM. Continue heparin and Pepcid for DVT and GI p rophylaxis 05/28/2021. Patient with right fifth TMA yesterday. Continue antibiotics per ID--Await recommendations for discharge. Creatinine remains stable at 1.4. Continue Lantus and SSRI for DM. Continue heparin and Pepcid for DVT and GI prophylaxis. PT evaluation 05/29/2021. Patient is doing well s/p TMA and revascularization procedure. Continue antibiotics per ID recommendations. Creatinine has stabilized back to baseline of 1.2. Await PT evaluation for discharge needs History Interval history: No new issues overnight. Hospitalist Physical - Constitutional Vitals: Temp Pulse Resp BP Pulse Ox 98.6 F 102 H 18 116/78 91 05/29/21 07:49 05/29/21 09:22 05/29/21 07:49 05/29/21 09:22 05/29/21 07:49 General appearance: Present: no acute distress - EENT Eyes: Present: PERRL, EOM intact ENT: hearing intact, clear oral mucosa, dentition normal - Neck Neck: Present: supple, normal ROM - Respiratory Respiratory effort: normal Respiratory: bilateral: CTA - Cardiovascular Rhythm: regular Heart Sounds: Present: S1 & S2. Absent: gallop, rub - Extremities Extremities: no ischemia, No edema, Full ROM - Abdominal General gastrointestinal: soft, non-tender, non-distended, normal bowel sounds - Integumentary Integumentary: Present: clear, warm, dry - Neurologic Neurologic: CNII-XII intact, moves all extremities Results - Labs CBC & Chem 7: 05/29/21 05:20 05/29/21 05:20 Labs: Laboratory Last Values WBC 10.4 K/mm3 (4.5-11.0) 05/29/21 05:20 RBC 3.50 M/mm3 (3.65-5.03) L 05/29/21 05:20 Hgb 9.2 gm/dl (11.8-15.2) L 05/29/21 05:20 Hct 27.6 % (35.5-45.6) L 05/29/21 05:20 MCV 79 fl (84-94) L 05/29/21 05:20 MCH 26 pg (28-32) L 05/29/21 05:20 MCHC 33 % (32-34) 05/29/21 05:20 RDW 14.4 % (13.2-15.2) 05/29/21 05:20 Plt Count 417 K/mm3 (140-440) 05/29/21 05:20 Lymph % (Auto) 22.0 % (13.4-35.0) 05/29/21 05:20 [place] % (Auto) 10.3 % (0.0-7.3) H 05/29/21 05:20 Eos % (Auto) 1.8 % (0.0-4.3) 05/29/21 05:20 Baso % (Auto) 0.6 % (0.0-1.8) 05/29/21 05:20 Lymph # (Auto) 2.3 K/mm3 (1.2-5.4) 05/29/21 05:20 [place] # (Auto) 1.1 K/mm3 (0.0-0.8) H 05/29/21 05:20 Eos # (Auto) 0.2 K/mm3 (0.0-0.4) 05/29/21 05:20 Baso # (Auto) 0.1 K/mm3 (0.0-0.1) 05/29/21 05:20 Seg Neutrophils % 65.3 % (40.0-70.0) 05/29/21 05:20 Seg Neutrophils # 6.8 K/mm3 (1.8-7.7) 05/29/21 05:20 Sodium 134 mmol/L (137-145) L 05/29/21 05:20 Potassium 4.4 mmol/L (3.6-5.0) 05/29/21 05:20 Chloride 99.4 mmol/L (98-107) 05/29/21 05:20 Carbon Dioxide 25 mmol/L (22-30) 05/29/21 05:20 Anion Gap 14 mmol/L 05/29/21 05:20 BUN 19 mg/dL (9-20) 05/29/21 05:20 Creatinine 1.2 mg/dL (0.8-1.3) 05/29/21 05:20 Estimated GFR > 60 ml/min 05/29/21 05:20 BUN/Creatinine Ratio 16 % 05/29/21 05:20 Glucose 204 mg/dL (75-100) H 05/29/21 05:20 POC Glucose 181 mg/dL (70-105) H 05/29/21 07:48 Hemoglobin A1c 11.8 % (4-6) H 05/23/21 23:17 Lactic Acid 1.80 mmol/L (0.7-2.0) 05/23/21 23:17 Calcium 9.1 mg/dL (8.4-10.2) 05/29/21 05:20 Total Bilirubin 0.40 mg/dL (0.1-1.2) 05/23/21 23:17 Direct Bilirubin < 0.2 mg/dL (0-0.2) 05/23/21 23:17 Indirect Bilirubin 0.2 mg/dL 05/23/21 23:17 AST 11 units/L (5-40) 05/23/21 23:17 ALT 11 units/L (7-56) 05/23/21 23:17 Alkaline Phosphatase 107 units/L (35-129) 05/23/21 23:17 Total Protein 8.6 g/dL (6.3-8.2) H 05/23/21 23:17 Albumin 4.0 g/dL (3.9-5) 05/23/21 23:17 Albumin/Globulin Ratio 0.9 % 05/23/21 23:17 Vancomycin Trough 6.6 ug/mL (5.0-20.0) 05/28/21 02:17 Microbiology: Microbiology 05/23/21 23:17 Peripheral/Venous Blood Culture - Final NO GROWTH AFTER 5 DAYS 05/23/21 23:13 Peripheral/Venous Blood Culture - Final NO GROWTH AFTER 5 DAYS Trivedi/IV: Voiding Method Urinal Active Medications - Current Medications Current Medications: Generic Name Dose Route Start Last Admin Trade Name Freq PRN Reason Stop Dose Admin Acetaminophen 650 mg 05/24/21 00:25 Acetaminophen 325 Mg Tab PO Q4H PRN Pain MILD(1-3)/Fever >100.5/ANG Amlodipine Besylate 10 mg 05/24/21 10:00 05/29/21 09:22 Amlodipine 10 Mg Tab PO 10 mg DAILY PANFIL[facility] Administration Aspirin 81 mg 05/26/21 16:00 05/29/21 09:22 Aspirin 81 Mg Tab Chew PO 81 mg QDAY [facility] Administration Clopidogrel Bisulfate 75 mg 05/26/21 16:00 05/29/21 09:21 Clopidogrel 75 Mg Tab PO 75 mg QDAY [facility] Administration Dextrose 50 ml 05/24/21 00:25 Dextrose 50% In Water (25gm) 50 Ml Syringe IV Q30MIN PRN Hypoglycemia Protocol Docusate Sodium 100 mg 05/24/21 10:00 05/29/21 09:22 Docusate Sodium 100 Mg Cap PO 100 mg BID [facility] Administration Famotidine 10 mg 05/28/21 22:00 05/29/21 09:21 Famotidine 10 Mg Tab PO 10 mg BID [facility] Administration Gabapentin 100 mg 05/24/21 10:00 05/29/21 09:23 Gabapentin 100 Mg Cap PO 100 mg DAILY [facility] Administration Heparin Sodium (Porcine) 5,000 unit 05/24/21 10:00 05/28/21 21:20 Heparin 5,000 Unit/1 Ml Vial SUB-Q 5,000 unit Q12HR [facility] Administration Ceftriaxone Sodium 2 gm in 100 mls @ 200 mls/hr 05/24/21 14:00 05/29/21 09:14 Rocephin/Ns 2 Gm/100 Ml IV 200 mls/hr Q24HR [facility] Administration Protocol Metronidazole 500 mg in 100 mls @ 100 mls/hr 05/24/21 14:00 05/29/21 05:40 Flagyl 500 Mg/100 Ml IV 100 mls/hr Q8H [facility] Administration Protocol Vancomycin HCl 1,250 mg/ 275 mls @ 166.667 mls/hr 05/28/21 16:00 05/29/21 03:55 Sodium Chloride IV 166.667 mls/hr Q12H [facility] Administration Insulin Glargine 15 units 05/24/21 08:00 05/28/21 09:49 Insulin Glargine 100 Units/Ml SUB-Q 15 units QAMDIAB [facility] Administration Insulin Human Lispro 0 unit 05/24/21 07:30 05/28/21 21:55 Insulin Lispro 100 Unit/Ml SUB-Q 4 unit ACHS [facility] Administration Protocol Morphine Sulfate 4 mg 05/24/21 00:27 Morphine 4 Mg/1 Ml Inj IV Q4H PRN Pain , Severe (7-10) Naloxone HCl 0.1 mg 05/24/21 00:27 Naloxone 0.4 Mg/1 Ml Inj IV Q2MIN PRN Res Rate </= 8 or 02 SAT < 92% Ondansetron HCl 4 mg 05/24/21 00:25 Ondansetron 4 Mg/2 Ml Inj IV Q6H PRN Nausea And Vomiting Oxycodone/Acetaminophen 1 tab 05/24/21 00:27 Oxycodone /Acetaminophen 5-325mg Tab PO Q6H PRN Pain, Moderate (4-6) Pravastatin Sodium 40 mg 05/24/21 22:00 05/28/21 21:18 Pravastatin 40 Mg Tab PO 40 mg QHS [facility] Administration Sodium Chloride 10 ml 05/24/21 10:00 05/28/21 21:18 Sodium Chloride 0.9% 10 Ml Flush Syringe IV 10 ml BID PANFILO Administration Sodium Chloride 10 ml 05/24/21 00:25 Sodium Chloride 0.9% 10 Ml Flush Syringe IV PRN PRN LINE FLUSH Sodium Hypochlorite 1 applic 05/28/21 13:22 Sodium Hypochlorite, Dakin's Full Strength (0.5%) 473 Ml Topical Soln TP Q12H PRN Wound Care
[2021-05-29] MEDS: PRAVASTATIN 40 MG TAB PO SCH (22:29)
[2021-05-30 05:32] LABS: Basophils # (Auto) 0.1 K/mm3 (0.0-0.1); Basophils % (Auto) 0.8 % (0.0-1.8); Eosinophils # (Auto) 0.2 K/mm3 (0.0-0.4); Eosinophils % (Auto) 1.6 % (0.0-4.3); Hematocrit 28.1 % (35.5-45.6); Hemoglobin 9.3 gm/dl (11.8-15.2); Lymphocytes # (Auto) 2.1 K/mm3 (1.2-5.4); Lymphocytes % (Auto) 21.4 % (13.4-35.0); Mean Corpuscular HGB Conc 33 % (32-34); Mean Corpuscular Volume 80 fl (84-94); Monocytes % (Auto) 10.2 % (0.0-7.3); Platelet Count 446 K/mm3 (140-440); Red Blood Count 3.52 M/mm3 (3.65-5.03); Red Cell Distribution Width 14.5 % (13.2-15.2)
[2021-05-30 05:52] LABS: BUN/Creatinine Ratio 15; Blood Urea Nitrogen 18 mg/dL (9-20); Calcium 9.2 mg/dL (8.4-10.2); Hemolysis Index 0
[2021-05-30] MEDS: VANCOMYCIN 1,250 MG in SODIUM CHLORIDE 0.9% 250ML 250 ML IV SCH ×2 (06:08→18:29)
[2021-05-30] MEDS: metroNIDAZOLE/NS 500 MG/100 ML 500 MG/100 ML BAG IV SCH ×3 (06:12→21:17)
[2021-05-30] MEDS: INSULIN LISPRO 100 UNIT/ML SUB-Q SCH ×4 (08:38→21:18)
[2021-05-30] MEDS: INSULIN GLARGINE 100 UNITS/ML SUB-Q SCH (08:39)
[2021-05-30] MEDS: oxyCODONE /ACETAMINOPHEN 5-325MG TAB PO PRN (08:41)
--- NOTE | 2021-05-30 08:48 | Progress Note ---
Assessment and Plan Assessment and plan: Right foot cellulitis/Right foot gas gangrene Osteomyelitis of the fifth metatarsal and proximal phalanx of fifth toe MRI confirms osteomyelitis of the fifth metatarsal and proximal phalanx of the fifth toe. Sepsis. Present on admission. Etiology secondary to above. Patient meets criteria given the tachycardia, leukocytosis and diagnosis of right foot cellulitis CECILIA secondary to ATN from sepsis -Cr on admission 1.8 DM2 -Uncontrolled -HgbA1c 11.8 HTN -Monitor BP 05/25/2021. MRI confirms osteomyelitis of the fifth metatarsal and proximal phalanx of the fifth toe. Patient also noted to have tissue wound at the lateral foot adjacent to the fifth metatarsal with gas in the subcutaneous tissues. Continue IV antibiotics of ceftriaxone, Flagyl and vancomycin per ID recommendations. Surgery consultation for further evaluation. 05/26/2021. Patient seen in the [facility]. Case discussed with Dr. Siddiqi. Patient with significant SFA disease and is currently undergoing revascularization of his right leg. General surgery likely to perform amputation of his fifth toe. Follow-up creatinine in a.m. after procedure. 05/27/2021. General surgery to perform TMA of right fifth toe this morning. Patient received right lower extremity revascularization yesterday with vascular surgery. Continue antibiotics of ceftriaxone, Flagyl and vancomycin. Follow-up wound culture from surgery. Creatinine has improved to 1.3. Continue IV fluid hydration, avoid nephrotoxic agents and continue to monitor renal function. Continue Lantus and SSRI for DM. Continue heparin and Pepcid for DVT and GI p rophylaxis 05/28/2021. Patient with right fifth TMA yesterday. Continue antibiotics per ID--Await recommendations for discharge. Creatinine remains stable at 1.4. Continue Lantus and SSRI for DM. Continue heparin and Pepcid for DVT and GI prophylaxis. PT evaluation 05/29/2021. Patient is doing well s/p TMA and revascularization procedure. Continue antibiotics per ID recommendations. Creatinine has stabilized back to baseline of 1.2. Await PT evaluation for discharge needs 05/30/2021. Patient is doing well s/p TMA and revascularization procedure. Continue antibiotics per ID recommendations. Creatinine has stabilized back to baseline of 1.2. Physical therapy recommends discharge home with no needs. Await ID recommendations with regards to discharge antibiotics. History Interval history: No new issues overnight. Hospitalist Physical - Constitutional Vitals: Temp Pulse Resp BP Pulse Ox 98.6 F 92 H 14 115/66 93 05/30/21 03:48 05/30/21 03:48 05/30/21 03:48 05/30/21 03:48 05/30/21 03:48 General appearance: Present: no acute distress - EENT Eyes: Present: PERRL, EOM intact ENT: hearing intact, clear oral mucosa, dentition normal - Neck Neck: Present: supple, normal ROM - Respiratory Respiratory effort: normal Respiratory: bilateral: CTA - Cardiovascular Rhythm: regular Heart Sounds: Present: S1 & S2. Absent: gallop, rub - Extremities Extremities: no ischemia, No edema, Full ROM - Abdominal General gastrointestinal: soft, non-tender, non-distended, normal bowel sounds - Integumentary Integumentary: Present: clear, warm, dry - Neurologic Neurologic: CNII-XII intact, moves all extremities Results - Labs CBC & Chem 7: 05/30/21 04:53 05/30/21 04:53 Labs: Laboratory Last Values WBC 9.9 K/mm3 (4.5-11.0) 05/30/21 04:53 RBC 3.52 M/mm3 (3.65-5.03) L 05/30/21 04:53 Hgb 9.3 gm/dl (11.8-15.2) L 05/30/21 04:53 Hct 28.1 % (35.5-45.6) L 05/30/21 04:53 MCV 80 fl (84-94) L 05/30/21 04:53 MCH 27 pg (28-32) L 05/30/21 04:53 MCHC 33 % (32-34) 05/30/21 04:53 RDW 14.5 % (13.2-15.2) 05/30/21 04:53 Plt Count 446 K/mm3 (140-440) H 05/30/21 04:53 Lymph % (Auto) 21.4 % (13.4-35.0) 05/30/21 04:53 [place] % (Auto) 10.2 % (0.0-7.3) H 05/30/21 04:53 Eos % (Auto) 1.6 % (0.0-4.3) 05/30/21 04:53 Baso % (Auto) 0.8 % (0.0-1.8) 05/30/21 04:53 Lymph # (Auto) 2.1 K/mm3 (1.2-5.4) 05/30/21 04:53 [place] # (Auto) 1.0 K/mm3 (0.0-0.8) H 05/30/21 04:53 Eos # (Auto) 0.2 K/mm3 (0.0-0.4) 05/30/21 04:53 Baso # (Auto) 0.1 K/mm3 (0.0-0.1) 05/30/21 04:53 Seg Neutrophils % 66.0 % (40.0-70.0) 05/30/21 04:53 Seg Neutrophils # 6.5 K/mm3 (1.8-7.7) 05/30/21 04:53 Sodium 134 mmol/L (137-145) L 05/30/21 04:53 Potassium 4.3 mmol/L (3.6-5.0) 05/30/21 04:53 Chloride 99.1 mmol/L (98-107) 05/30/21 04:53 Carbon Dioxide 24 mmol/L (22-30) 05/30/21 04:53 Anion Gap 15 mmol/L 05/30/21 04:53 BUN 18 mg/dL (9-20) 05/30/21 04:53 Creatinine 1.2 mg/dL (0.8-1.3) 05/30/21 04:53 Estimated GFR > 60 ml/min 05/30/21 04:53 BUN/Creatinine Ratio 15 % 05/30/21 04:53 Glucose 223 mg/dL (75-100) H 05/30/21 04:53 POC Glucose 197 mg/dL (70-105) H 05/30/21 07:39 Hemoglobin A1c 11.8 % (4-6) H 05/23/21 23:17 Lactic Acid 1.80 mmol/L (0.7-2.0) 05/23/21 23:17 Calcium 9.2 mg/dL (8.4-10.2) 05/30/21 04:53 Total Bilirubin 0.40 mg/dL (0.1-1.2) 05/23/21 23:17 Direct Bilirubin < 0.2 mg/dL (0-0.2) 05/23/21 23:17 Indirect Bilirubin 0.2 mg/dL 05/23/21 23:17 AST 11 units/L (5-40) 05/23/21 23:17 ALT 11 units/L (7-56) 05/23/21 23:17 Alkaline Phosphatase 107 units/L (35-129) 05/23/21 23:17 Total Protein 8.6 g/dL (6.3-8.2) H 05/23/21 23:17 Albumin 4.0 g/dL (3.9-5) 05/23/21 23:17 Albumin/Globulin Ratio 0.9 % 05/23/21 23:17 Vancomycin Trough 6.6 ug/mL (5.0-20.0) 05/28/21 02:17 Trivedi/IV: Voiding Method Toilet Active Medications - Current Medications Current Medications: Generic Name Dose Route Start Last Admin Trade Name Freq PRN Reason Stop Dose Admin Acetaminophen 650 mg 05/24/21 00:25 Acetaminophen 325 Mg Tab PO Q4H PRN Pain MILD(1-3)/Fever >100.5/ANG Amlodipine Besylate 10 mg 05/24/21 10:00 05/29/21 09:22 Amlodipine 10 Mg Tab PO 10 mg DAILY PANFILO Administration Aspirin 81 mg 05/26/21 16:00 05/29/21 09:22 Aspirin 81 Mg Tab Chew PO 81 mg QDAY [facility] Administration Clopidogrel Bisulfate 75 mg 05/26/21 16:00 05/29/21 09:21 Clopidogrel 75 Mg Tab PO 75 mg QDAY [facility] Administration Dextrose 50 ml 05/24/21 00:25 Dextrose 50% In Water (25gm) 50 Ml Syringe IV Q30MIN PRN Hypoglycemia Protocol Docusate Sodium 100 mg 05/24/21 10:00 05/29/21 22:29 Docusate Sodium 100 Mg Cap PO 100 mg BID PAN[facility] Administration Famotidine 10 mg 05/28/21 22:00 05/29/21 22:29 Famotidine 10 Mg Tab PO 10 mg BID PAN[facility] Administration Gabapentin 100 mg 05/24/21 10:00 05/29/21 09:23 Gabapentin 100 Mg Cap PO 100 mg DAILY [facility] Administration Heparin Sodium (Porcine) 5,000 unit 05/24/21 10:00 05/29/21 22:29 Heparin 5,000 Unit/1 Ml Vial SUB-Q 5,000 unit Q12HR [facility] Administration Ceftriaxone Sodium 2 gm in 100 mls @ 200 mls/hr 05/24/21 14:00 05/29/21 09:14 Rocephin/Ns 2 Gm/100 Ml IV 200 mls/hr Q24HR [facility] Administration Protocol Metronidazole 500 mg in 100 mls @ 100 mls/hr 05/24/21 14:00 05/30/21 06:12 Flagyl 500 Mg/100 Ml IV 100 mls/hr Q8H [facility] Administration Protocol Vancomycin HCl 1,250 mg/ 275 mls @ 166.667 mls/hr 05/28/21 16:00 05/30/21 06:08 Sodium Chloride IV 166.667 mls/hr Q12H [facility] Administration Insulin Glargine 15 units 05/24/21 08:00 05/30/21 08:39 Insulin Glargine 100 Units/Ml SUB-Q 15 units QAMDIAB [facility] Administration Insulin Human Lispro 0 unit 05/24/21 07:30 05/30/21 08:38 Insulin Lispro 100 Unit/Ml SUB-Q 2 unit ACHS [facility] Administration Protocol Morphine Sulfate 4 mg 05/24/21 00:27 Morphine 4 Mg/1 Ml Inj IV Q4H PRN Pain , Severe (7-10) Naloxone HCl 0.1 mg 05/24/21 00:27 Naloxone 0.4 Mg/1 Ml Inj IV Q2MIN PRN Res Rate </= 8 or 02 SAT < 92% Ondansetron HCl 4 mg 05/24/21 00:25 Ondansetron 4 Mg/2 Ml Inj IV Q6H PRN Nausea And Vomiting Oxycodone/Acetaminophen 1 tab 05/24/21 00:27 05/30/21 08:41 Oxycodone /Acetaminophen 5-325mg Tab PO 1 tab Q6H PRN Administration Pain, Moderate (4-6) Pravastatin Sodium 40 mg 05/24/21 22:00 05/29/21 22:29 Pravastatin 40 Mg Tab PO 40 mg QHS [facility] Administration Sodium Chloride 10 ml 05/24/21 10:00 05/29/21 22:35 Sodium Chloride 0.9% 10 Ml Flush Syringe IV 10 ml BID [facility] Administration Sodium Chloride 10 ml 05/24/21 00:25 Sodium Chloride 0.9% 10 Ml Flush Syringe IV PRN PRN LINE FLUSH Sodium Hypochlorite 1 applic 05/28/21 13:22 Sodium Hypochlorite, Dakin's Full Strength (0.5%) 473 Ml Topical Soln TP Q12H PRN Wound Care
[2021-05-30] MEDS: GABAPENTIN 100 MG CAP PO SCH (10:04)
[2021-05-30] MEDS: ASPIRIN 81 MG TAB CHEW PO SCH (10:04)
[2021-05-30] MEDS: FAMOTIDINE 10 MG TAB PO SCH ×2 (10:04→21:18)
[2021-05-30] MEDS: CLOPIDOGREL 75 MG TAB PO SCH (10:04)
[2021-05-30] MEDS: amLODIPine 10 MG TAB PO SCH (10:04)
[2021-05-30] MEDS: HEPARIN 5,000 UNIT/1 ML VIAL SUB-Q SCH ×2 (10:04→21:18)
[2021-05-30] MEDS: cefTRIAXone/NS 2 GM/100 ML 2 GM/100 ML BAG IV SCH (10:05)
[2021-05-30] MEDS: DOCUSATE SODIUM 100 MG CAP PO SCH ×2 (10:05→21:18)
--- NOTE | 2021-05-30 12:27 | Progress Note ---
Assessment and Plan Cultures: 05/23/2021 blood culture: no growth A/P: 60-year-old male with diabetes, hypertension admitted with: #Sepsis, secondary to right diabetic foot infection with associated fifth toe osteomyelitis, gangrenous change: Follows with outpatient podiatry, failed outpatient therapy. Non-smoker. #Diabetes uncontrolled #CECILIA: improved #Peripheral vascular disease: noted on arterial US. Status post RLE revascularization 05/26/2021 Recs: -continue Ceftriaxone, Flagyl and vancomycin -Do not see any cultures pending results unfortunately. -s/p debridement and TMA of right fifth toe -OK to DC on Bactrim DS and Augmentin 875/125mg q12h for 7 days -Follow up in clinic to go over pathology in 1-2 weeks. Don Ayala MD [facility], [place] [facility] O: [phone] F: [phone] Subjective Date of service: 05/30/21 Principal diagnosis: PVD with gangrene Interval history: Afebrile, normal white count. Status post amputation. Objective - Exam Narrative Exam: Constitutional: Alert, cooperative. No acute distress Head, Ears, Nose: Normocephalic, atraumatic. External ears, nose normal Eyes: Conjunctivae/corneas clear. No icterus. No ptosis. Neck: Supple, no meningeal signs Cardiovascular: S1, S2 + Respiratory: Good air entry, clear to auscultation bilaterally GI: Soft, non-tender; bowel sounds normal. No peritoneal signs Musculoskeletal: Right foot in dressing Skin: No rash or abscess Hem/Lymphatic: No palpable cervical or supraclavicular nodes. Psych: Mood ok. Affect normal Neurological: Awake, alert, oriented. No gross abnormality - Constitutional Vitals: Vital Signs Temp Pulse Resp BP Pulse Ox 98.9 F 88 18 125/80 97 05/30/21 07:41 05/30/21 07:41 05/30/21 07:41 05/30/21 07:41 05/30/21 07:41 Temperature -Last 24 Hours Temperature 98.9 F Temperature 98.6 F Temperature 98.9 F Temperature 98.5 F Temperature 98.1 F - Labs CBC & Chem 7: 05/30/21 04:53 05/30/21 04:53 Labs: Abnormal lab results 05/29/21 05/29/21 05/30/21 Range/Units 16:27 20:35 04:53 RBC 3.52 L (3.65-5.03) M/mm3 Hgb 9.3 L (11.8-15.2) gm/dl Hct 28.1 L (35.5-45.6) % MCV 80 L (84-94) fl MCH 27 L (28-32) pg Plt Count 446 H (140-440) K/mm3 [place] % (Auto) 10.2 H (0.0-7.3) % [place] # (Auto) 1.0 H (0.0-0.8) K/mm3 Sodium (137-145) mmol/L Glucose (75-100) mg/dL POC Glucose 322 H 325 H (70-105) mg/dL 05/30/21 05/30/21 05/30/21 Range/Units 04:53 07:39 11:43 RBC (3.65-5.03) M/mm3 Hgb (11.8-15.2) gm/dl Hct (35.5-45.6) % MCV (84-94) fl MCH (28-32) pg Plt Count (140-440) K/mm3 [place] % (Auto) (0.0-7.3) % [place] # (Auto) (0.0-0.8) K/mm3 Sodium 134 L (137-145) mmol/L Glucose 223 H (75-100) mg/dL POC Glucose 197 H 288 H (70-105) mg/dL
[2021-05-30] MEDS: PRAVASTATIN 40 MG TAB PO SCH (21:18)
[2021-05-31] MEDS: VANCOMYCIN 1,250 MG in SODIUM CHLORIDE 0.9% 250ML 250 ML IV SCH (03:24)
[2021-05-31 06:16] LABS: Basophils # (Auto) 0.1 K/mm3 (0.0-0.1); Basophils % (Auto) 0.9 % (0.0-1.8); Eosinophils # (Auto) 0.2 K/mm3 (0.0-0.4); Eosinophils % (Auto) 2.3 % (0.0-4.3); Hematocrit 28.5 % (35.5-45.6); Hemoglobin 9.1 gm/dl (11.8-15.2); Lymphocytes # (Auto) 1.6 K/mm3 (1.2-5.4); Lymphocytes % (Auto) 18.1 % (13.4-35.0); Mean Corpuscular HGB Conc 32 % (32-34); Mean Corpuscular Volume 79 fl (84-94); Monocytes % (Auto) 11.1 % (0.0-7.3); Platelet Count 474 K/mm3 (140-440); Red Blood Count 3.59 M/mm3 (3.65-5.03); Red Cell Distribution Width 14.9 % (13.2-15.2)
[2021-05-31] MEDS: metroNIDAZOLE/NS 500 MG/100 ML 500 MG/100 ML BAG IV SCH (06:16)
[2021-05-31 06:31] LABS: BUN/Creatinine Ratio 15; Blood Urea Nitrogen 15 mg/dL (9-20); Hemolysis Index 0
[2021-05-31] MEDS: ASPIRIN 81 MG TAB CHEW PO SCH (10:50)
[2021-05-31] MEDS: DOCUSATE SODIUM 100 MG CAP PO SCH (10:50)
[2021-05-31] MEDS: HEPARIN 5,000 UNIT/1 ML VIAL SUB-Q SCH (10:50)
[2021-05-31] MEDS: INSULIN GLARGINE 100 UNITS/ML SUB-Q SCH (10:50)
[2021-05-31] MEDS: FAMOTIDINE 10 MG TAB PO SCH (10:50)
[2021-05-31] MEDS: GABAPENTIN 100 MG CAP PO SCH (10:50)
[2021-05-31] MEDS: oxyCODONE /ACETAMINOPHEN 5-325MG TAB PO PRN (10:50)
[2021-05-31] MEDS: CLOPIDOGREL 75 MG TAB PO SCH (10:51)
[2021-05-31] MEDS: cefTRIAXone/NS 2 GM/100 ML 2 GM/100 ML BAG IV SCH (10:51)
[2021-05-31] MEDS: amLODIPine 10 MG TAB PO SCH (10:51)
--- NOTE | 2021-05-31 11:01 | Progress Note ---
Assessment and Plan Cultures: 05/23/2021 blood culture: no growth A/P: 60-year-old male with diabetes, hypertension admitted with: #Sepsis, secondary to right diabetic foot infection with associated fifth toe osteomyelitis, gangrenous change: Follows with outpatient podiatry, failed outpatient therapy. Non-smoker. #Diabetes uncontrolled #CECILIA: improved #Peripheral vascular disease: noted on arterial US. Status post RLE revascularization 05/26/2021 Recs: -continue Ceftriaxone, Flagyl and vancomycin -Do not see any cultures pending results unfortunately. -s/p debridement and TMA of right fifth toe -OK to DC on Bactrim DS and Augmentin 875/125mg q12h for 7 days -Follow up in clinic to go over pathology in 1-2 weeks. Don Ayala MD [facility] O: [phone] F: [phone] Subjective Date of service: 05/31/21 Principal diagnosis: PVD with gangrene Interval history: Afebrile, normal white count. No acute change. Objective - Exam Narrative Exam: Constitutional: Alert, cooperative. No acute distress Head, Ears, Nose: Normocephalic, atraumatic. External ears, nose normal Eyes: Conjunctivae/corneas clear. No icterus. No ptosis. Neck: Supple, no meningeal signs Cardiovascular: S1, S2 + Respiratory: Good air entry, clear to auscultation bilaterally GI: Soft, non-tender; bowel sounds normal. No peritoneal signs Musculoskeletal: Right foot in dressing Skin: No rash or abscess Hem/Lymphatic: No palpable cervical or supraclavicular nodes. Psych: Mood ok. Affect normal Neurological: Awake, alert, oriented. No gross abnormality - Constitutional Vitals: Vital Signs Temp Pulse Resp BP Pulse Ox 99.7 F H 93 H 22 123/78 93 05/31/21 08:33 05/31/21 08:33 05/31/21 08:33 05/31/21 08:33 05/31/21 08:33 Temperature -Last 24 Hours Temperature 99.7 F Temperature 98.8 F Temperature 98.3 F Temperature 98.1 F - Labs CBC & Chem 7: 05/31/21 04:37 05/31/21 04:37 Labs: Abnormal lab results 05/30/21 05/30/2105/30/21 Range/Units 11:43 17:01 20:43 RBC (3.65-5.03) M/mm3 Hgb (11.8-15.2) gm/dl Hct (35.5-45.6) % MCV (84-94) fl MCH (28-32) pg Plt Count (140-440) K/mm3 [place] % (Auto) (0.0-7.3) % Nash # (Auto) (0.0-0.8) K/mm3 Glucose (75-100) mg/dL POC Glucose 288 H 276 H 340 H (70-105) mg/dL 05/31/21 05/31/21 05/31/21 Range/Units 04:37 04:37 08:37 RBC 3.59 L (3.65-5.03) M/mm3 Hgb 9.1 L (11.8-15.2) gm/dl Hct 28.5 L (35.5-45.6) % MCV 79 L (84-94) fl MCH 25 L (28-32) pg Plt Count 474 H (140-440) K/mm3 [place] % (Auto) 11.1 H (0.0-7.3) % [place] # (Auto) 1.0 H (0.0-0.8) K/mm3 Glucose 156 H (75-100) mg/dL POC Glucose 160 H (70-105) mg/dL
[2021-05-31 12:07] VITALS: BP 134/85
--- NOTE | 2021-05-31 14:55 | Discharge Summary ---
Providers - Providers Date of Admission: 05/24/21 00:25 Date of discharge: 05/31/21 Attending physician: JUAN LAMA 05/24/21 00:27 Consult to Physician [CONS] Routine Comment: Consulting Provider: BRISSA ADDISON Physician Instructions: Reason For Exam: Rt foot cellulitis, gas gangrene,? Osteomyelitia Consult to Physician [CONS] Routine Comment: Consulting Provider: LO CREWS Physician Instructions: Reason For Exam: right root cellulitis,?Gas gangrene,?osteomyelitis 05/24/21 02:10 Consult to Wound/ET Nurse [CONS] Routine Reason For Exam: wound eval, right foot wound 05/25/21 04:17 Consult to Wound/ET Nurse [CONS] Routine Reason For Exam: wound eval 05/25/21 09:46 Consult to Physician [CONS] Routine Comment: Consulting Provider: LOU DAO Physician Instructions: Reason For Exam: gas noted in foot wound with osteo 05/25/21 15:25 Consult to Physician [CONS] Routine Comment: Consulting Provider: NETTIE QUINTANA Physician Instructions: Reason For Exam: abnormal arterial doppler studies, PVD 05/26/21 09:41 Consult to Physician [CONS] Routine Comment: Consulting Provider: ALISON STEWART Physician Instructions: already spoke with dr. stewart Reason For Exam: please eval for amputation 05/28/21 10:20 Physical Therapy Evaluation and Treat [CONS] Routine Comment: Reason For Exam: Recent TMA Primary care physician: [employer]IED [employer] Hospitalization Condition: Stable Disposition: 01 HOME / SELF CARE / HOMELESS Final Discharge Diagnosis (Prints w/discharge instructions): 1.Osteomyelitis 5th metatarsal and proximal phalanx 5th toe - Discharge Diagnoses (1) Foot osteomyelitis, right Status: Acute Qualifiers: Osteomyelitis type: unspecified type Qualified Code(s): M86.9 - Osteomyelitis, unspecified Core Measure Documentation - Palliative Care Palliative Care/ Comfort Measures: Not Applicable - Core Measures Any of the following diagnoses?: none Exam - Constitutional Vitals: Temp Pulse Resp BP Pulse Ox 98.6 F 93 H 20 134/85 97 05/31/21 11:16 05/31/21 11:16 05/31/21 11:16 05/31/21 11:16 05/31/21 11:16 Plan Activity: advance as tolerated Diet: low fat, low cholesterol, low salt Special Instructions: other (Follow up Dr. Stewart, Dr. Ayala and Dr. Siddiqi.) Plan of Treatment: 1.Follow up with PCP in 1 week. 2.Follow up with Dr. Ayala, ID in 1 week 3.Follow up with Dr. Stewart, Surgeon in 1-2 days to follow wound 4.Follow up with Dr. Siddiqi, Vasc Surg in 2 weeks Follow up with: PRIMARY CARE,MD [Primary Care Provider] - 3-5 Days Prescriptions: Aspirin [Aspirin BABY CHEW TAB] 81 mg PO QDAY #30 tab.chew Amoxicillin/K Clav Tab [Augmentin 875MG TAB] 1 each PO Q12HR 7 Days #14 tablet Sulfamethoxazole/Trimethoprim [Bactrim DS TAB] 1 each PO Q12HR 7 Days #14 tablet Famotidine [Pepcid] 20 mg PO BID #60 tablet Clopidogrel [Plavix] 75 mg PO QDAY #30 tablet
[2021-05-31] MEDS ORDERED: AMOXICILLIN/K CLAV 875/125MG TAB PO SCH (22:00)
[2021-05-31] MEDS ORDERED: SULFAMETHOXAZOLE/TRIMETHOPRIM 800/160MG DS TAB PO SCH (22:00)
== END 2021-05-31 18:16 | disposition home or self-care (01) | DRG 853 ==
LOC: ED 20:03 → 4A 05-24 00:25
PROVIDERS: ADMIT Internal Medicine Geriatric Medicine; ATTEND Internal Medicine
PROC: 047M3D1 Dilation of Right Popliteal Artery with Intraluminal Device, using Drug-Coated Balloon, Percutaneous Approach (ICD-10-PCS; 2021-05-26)
PROC: 047P3D1 Dilation of Right Anterior Tibial Artery with Intraluminal Device, using Drug-Coated Balloon, Percutaneous Approach (ICD-10-PCS; 2021-05-26)
PROC: 04CM3ZZ Extirpation of Matter from Right Popliteal Artery, Percutaneous Approach (ICD-10-PCS; 2021-05-26)
PROC: 047K3D1 Dilation of Right Femoral Artery with Intraluminal Device, using Drug-Coated Balloon, Percutaneous Approach (ICD-10-PCS; 2021-05-26)
PROC: 04CK3ZZ Extirpation of Matter from Right Femoral Artery, Percutaneous Approach (ICD-10-PCS; 2021-05-26)
PROC: B4101ZZ Fluoroscopy of Abdominal Aorta using Low Osmolar Contrast (ICD-10-PCS; 2021-05-26)
PROC: B41F1ZZ Fluoroscopy of Right Lower Extremity Arteries using Low Osmolar Contrast (ICD-10-PCS; 2021-05-26)
PROC: B41G1ZZ Fluoroscopy of Left Lower Extremity Arteries using Low Osmolar Contrast (ICD-10-PCS; 2021-05-26)
PROC: 0Y6M0ZF Detachment at Right Foot, Partial 5th Ray, Open Approach (ICD-10-PCS; principal; 2021-05-27)
DX: A41.9 Sepsis, unspecified organism (principal); A48.0 Gas gangrene; N17.0 Acute kidney failure with tubular necrosis; L03.115 Cellulitis of right lower limb; M86.171 Other acute osteomyelitis, right ankle and foot; E11.52 Type 2 diabetes mellitus with diabetic peripheral angiopathy with gangrene; E11.65 Type 2 diabetes mellitus with hyperglycemia; E11.69 Type 2 diabetes mellitus with other specified complication; I10 Essential (primary) hypertension; Z83.3 Family history of diabetes mellitus; Z82.49 Family history of ischemic heart disease and other diseases of the circulatory system; Z79.899 Other long term (current) drug therapy
CPT/HCPCS: 36415; 37225; 37228; 75625; 75710; 76937; 80048; 80076; 80202; 82140; 82962; 83036; 85025; 85027; 87040; 88305; 88311; 93925; G0378; A9270-GY; C1714; C1760; C1769; C1884; C1887; C2623; J0690; J0696; J1644; J1815; J2250; J2370; J2405; J2543; J2704; J3010; J3370; J7040; J7050; Q9967

== ENCOUNTER 2021-08-22 12:05 | Day surgery (SDC) | payer OTHER ==
[~2021-08-22 12:05] MED LIST: ACETAMINOPHEN 500 MG TAB PO SCH; GABAPENTIN 300 MG CAP PO NR; LACTATED RINGERS 1,000 ML IV SCH; MIDAZOLAM 2 MG/2 ML INJ IV NR; SODIUM CHLORIDE 0.9% IRR 1,500 ML BOTTLE IR ONE
[2021-08-22] MEDS ORDERED: BUPIVACAINE/PF (0.5%) 5 MG/1 ML 30 ML VIAL INFILTRATI ONE (12:42)
[2021-08-22] MEDS ORDERED: LIDOCAINE (1%) 10 MG/1 ML VIAL 20 ML MDV ONE (12:42)
[2021-08-22] MEDS ORDERED: SODIUM CHLORIDE 0.9% 1000 ML 1,000 ML ONE ×2 (12:54→15:05)
[2021-08-22] MEDS ORDERED: HYDROmorphone 1 MG/1 ML INJ IV PRN (13:02)
[2021-08-22] MEDS ORDERED: oxyCODONE /ACETAMINOPHEN 5-325MG TAB PO PRN (13:02)
[2021-08-22] MEDS ORDERED: ONDANSETRON 4 MG/2 ML INJ IV PRN (13:02)
--- NOTE | 2021-08-22 13:04 | Anesthesia Day of Surgery ---
Anesthesia Day of Surgery - Day of Surgery Patient Examined: Yes Patient H&P Reviewed: Yes Patient is NPO: Yes
--- NOTE | 2021-08-22 13:04 | Anesthesia Consultation ---
Anesthesia Consult and Med Hx Date of service: 08/22/21 - Airway Anesthetic Teeth Evaluation: Good ROM Head & Neck: Adequate Mental/Hyoid Distance: Adequate Mallampati Class: Class II Intubation Access Assessment: Probably Good (previous LMA 4) - Pre-Operative Health Status ASA Pre-Surgery Classification: ASA3 Proposed Anesthetic Plan: MAC - Pulmonary Hx Respiratory Symptoms: No - Cardiovascular System Hx Hypertension: Yes Hx Heart Attack/AMI: No - Central Nervous System CVA: No - Endocrine Hx Renal Disease: No Hx Liver Disease: No Hx Non-Insulin Dependent Diabetes: Yes Hx Thyroid Disease: No - Hematic Hx Anemia: Yes - Other Systems Hx Obesity: No - Additional Comments Anesthesia Medical History Comments: No hx anesthetic complications. Hyperglycemic in preop. Will treat with insulin and monitor perioperatively.
[2021-08-22] MEDS ORDERED: propofoL 200 MG/20 ML VIAL IV ONE ×4 (13:46→14:56)
[2021-08-22] MEDS ORDERED: ceFAZolin/Water 2 GM/20 ML 2 GM/20 ML SYRINGE IV ONE (13:58)
[2021-08-22] MEDS ORDERED: ceFAZolin/STERILE WATER 2 GM/20 ML SYRINGE IV NR (14:00)
[2021-08-22] MEDS ORDERED: MIDAZOLAM 2 MG/2 ML INJ IV NR (14:00)
[2021-08-22] MEDS ORDERED: INSULIN REGULAR, HUMAN 100 UNITS/1 ML IV ONE (14:00)
[2021-08-22] MEDS ORDERED: SODIUM CHLORIDE 0.9% 1000 ML 1,000 ML IV SCH (14:00)
[2021-08-22] MEDS ORDERED: SODIUM CHLORIDE 0.9% IRR 1,500 ML BOTTLE IR ONE (14:33)
[2021-08-22 14:47] LABS: BUN/Creatinine Ratio 20; Blood Urea Nitrogen 26 mg/dL (9-20); Calcium 9.8 mg/dL (8.4-10.2); Hemolysis Index 2
[2021-08-22] MEDS ORDERED: GLYCOPYRROLATE 0.4 MG/2 ML INJ ONE (15:05)
--- NOTE | 2021-08-22 15:27 | Procedure Note ---
Date of procedure: 08/22/21 Pre-op diagnosis: Osteomyelitis, right 4th toe Post-op diagnosis: same Procedure: Right 4th toe TMA Description of procedure: Pt was placed supine on the OR table. MAC anesthesia was administered. Right foot and leg were prepped and draped. A tear drop incision was made about the right 4th toe and the toe amputated at the MTP joint. Hemostasis was obtained with the Bovie. Periosteum was elevated off of the distal 4th metatarsal shaft and the shaft amputated with a bone saw. Wound was irrigated with warm saline. Surgicel was applied to the wound bed. This was followed by dry 4 X 4's and Kerlix and Coban wraps. Pt tolerated the procedure well and was taken to PACU in stable condition. Anesthesia: MAC Surgeon: ALISON RICHARDS Estimated blood loss: 50-100ml Pathology: list (Right 4th toe and metatarsal head) Specimen disposition: to lab Condition: stable Disposition: PACU
[2021-08-22 17:23] VITALS: BP 130/78
== END 2021-08-22 16:50 | disposition home or self-care (01) ==
LOC: OR 12:05
PROVIDERS: ATTEND Surgery
DX: M86.8X7 Other osteomyelitis, ankle and foot (principal); I10 Essential (primary) hypertension; E11.9 Type 2 diabetes mellitus without complications; Z79.899 Other long term (current) drug therapy; Z98.890 Other specified postprocedural states
CPT/HCPCS: 28810; 36415; 80048; 82962; 88305; 88311; J0690; J1815; J2704; J7030; 88302; J3490; J7120; Q0162; Q9967

== ENCOUNTER 2021-09-28 11:02 | Outpatient (CLI) | payer OTHER ==
[2021-09-28] MEDS ORDERED: SILVER NITRATE APPLICATOR 1 EA TP SCH (13:30)
[2021-09-28] MEDS ORDERED: SODIUM HYPOCHLORITE, DAKIN'S FULL STRENGTH (0.5%) 473 ML TOPICAL SOLN TP ONE (13:56)
== END 2021-09-28 11:03 | disposition home or self-care (01) ==
LOC: WOUND 11:02
PROVIDERS: ATTEND Surgery
DX: T87.89 Other complications of amputation stump (principal); E11.621 Type 2 diabetes mellitus with foot ulcer; L97.512 Non-pressure chronic ulcer of other part of right foot with fat layer exposed; E11.69 Type 2 diabetes mellitus with other specified complication; M86.671 Other chronic osteomyelitis, right ankle and foot; I10 Essential (primary) hypertension; Z79.84 Long term (current) use of oral hypoglycemic drugs; Z79.82 Long term (current) use of aspirin; Y83.5 Amputation of limb(s) as the cause of abnormal reaction of the patient, or of later complication, without mention of misadventure at the time of the procedure; Y92.238 Other place in hospital as the place of occurrence of the external cause

== ENCOUNTER 2021-10-05 11:02 | Outpatient (CLI) | payer OTHER ==
[2021-10-05] MEDS ORDERED: LIDOCAINE (4%) 40 MG/ML TOPICAL SOLN 50 ML BOTTLE TP ONE (11:21)
[2021-10-05] MEDS ORDERED: SODIUM HYPOCHLORITE, DAKIN'S 1/2 STRENGTH (0.25%) 473 ML TOPICAL SOLN TP ONE (11:33)
== END 2021-10-05 11:03 | disposition home or self-care (01) ==
LOC: WOUND 11:02
PROVIDERS: ATTEND Surgery
DX: T87.89 Other complications of amputation stump (principal); E11.621 Type 2 diabetes mellitus with foot ulcer; L97.512 Non-pressure chronic ulcer of other part of right foot with fat layer exposed; E11.69 Type 2 diabetes mellitus with other specified complication; M86.671 Other chronic osteomyelitis, right ankle and foot; I10 Essential (primary) hypertension; Z79.84 Long term (current) use of oral hypoglycemic drugs; Z79.82 Long term (current) use of aspirin; Y83.5 Amputation of limb(s) as the cause of abnormal reaction of the patient, or of later complication, without mention of misadventure at the time of the procedure

== ENCOUNTER 2021-11-08 11:05 | Day surgery (SDC) | payer OTHER ==
[2021-11-08] MEDS ORDERED: SODIUM CHLORIDE 0.9% 1000 ML 1,000 ML ONE (11:47)
--- NOTE | 2021-11-08 12:41 | Anesthesia Consultation ---
Anesthesia Consult and Med Hx Date of service: 11/08/21 - Airway Anesthetic Teeth Evaluation: Good ROM Head & Neck: Adequate Mental/Hyoid Distance: Adequate Mallampati Class: Class I Intubation Access Assessment: Good - Pulmonary Exam CTA: Yes - Cardiac Exam Cardiac Exam: RRR - Pre-Operative Health Status ASA Pre-Surgery Classification: ASA2 Proposed Anesthetic Plan: MAC - Pulmonary Hx Smoking: No Hx Respiratory Symptoms: No COPD: No Hx Sleep Apnea: No - Cardiovascular System Hx Hypertension: Yes (+ high cholesterol) Hx Heart Attack/AMI: No - Central Nervous System Hx Neuromuscular Disorder: No CVA: No - Gastrointestinal Hx Gastroesophageal Reflux Disease: No - Endocrine Hx Renal Disease: No Hx End Stage Renal Disease: No Hx Liver Disease: No Hx Insulin Dependent Diabetes: No Hx Non-Insulin Dependent Diabetes: Yes Hx Thyroid Disease: No - Hematic Hx Anemia: Yes Hx Sickle Cell Disease: No - Other Systems Hx Alcohol Use: No Hx Substance Use: No Hx Cancer: No Hx Obesity: No - Additional Comments Anesthesia Medical History Comments: no hx of anesthetic complications
--- NOTE | 2021-11-08 12:41 | Anesthesia Day of Surgery ---
Anesthesia Day of Surgery - Day of Surgery Patient Examined: Yes Patient H&P Reviewed: Yes Patient is NPO: Yes
[2021-11-08] MEDS ORDERED: propofoL 200 MG/20 ML VIAL IV ONE ×4 (12:44→14:19)
[2021-11-08] MEDS ORDERED: LIDOCAINE MPF (2%) 20 MG/1 ML VIAL 5 ML ONE (12:44)
[2021-11-08] MEDS ORDERED: SODIUM CHLORIDE 0.9% 1000 ML 1,000 ML IV SCH (13:15)
--- NOTE | 2021-11-08 14:48 | Procedure Note ---
Date of procedure: 11/08/21 Pre-op diagnosis: Iron deficiency anemia Post-op diagnosis: same (Also, benign appearing 5 mm rectal polyp) Procedure: Colonoscopy with snare polypectomy Description of procedure: Pt was placed left side down. MAC anesthesia was administered. Scope was introduced into the pt's rectum. Prep was poor. Scope was advanced to the cecum without difficulty. The only abnormality noted was a benign appearing, 7 mm sessile polyp of the rectum at 5 cm. This was removed using the snare and cautery. The polyp was retrieved with the pinch biopsy forceps. Insufflated air was aspirated. Scope was withdrawn. Pt tolerated the procedure well. Findings: See above. Anesthesia: MAC Surgeon: ALISON RICHARDS Estimated blood loss: minimal Pathology: list (rectal polyp) Specimen disposition: to lab Condition: stable Disposition: PACU
[2021-11-08 16:21] VITALS: BP 110/83
== END 2021-11-08 15:00 | disposition home or self-care (01) ==
LOC: GIO 11:05
PROVIDERS: ATTEND Surgery
DX: D50.9 Iron deficiency anemia, unspecified (principal); K62.1 Rectal polyp; E11.51 Type 2 diabetes mellitus with diabetic peripheral angiopathy without gangrene; E11.621 Type 2 diabetes mellitus with foot ulcer; E78.00 Pure hypercholesterolemia, unspecified; I10 Essential (primary) hypertension; D64.9 Anemia, unspecified; Z79.84 Long term (current) use of oral hypoglycemic drugs; Z79.82 Long term (current) use of aspirin; Z79.899 Other long term (current) drug therapy
CPT/HCPCS: 45385; 82962; 88305; J2704; J3490; J7030; J7120; Q0162